=== PATIENT | female | born 1955 | race Caucasian/White ===

== ENCOUNTER → 2016-12-06 | Outpatient (CLI) | payer OTHER ==
[2016-12-06 11:59] LABS: Calcium 10.5 mg/dL (8.4-10.2)
[2016-12-06 12:16] LABS: Follicle Stimulating Hormone 49.2 mIU/mL; Prolactin 9.1 ng/mL (3.0-18.6)
--- NOTE | 2016-12-06 15:50 | US ---
EXAMINATION TYPE: US thyroid st tissue head/neck DATE OF EXAM: 12/06/2016 COMPARISON: US 05/13 CLINICAL HISTORY: 61-year-old female E21.0 PRIMARY HYPERPARATHYROIDISM. Patient states she is schedul e for thyroidectomy due to labs, renal stones, etc TECHNIQUE: Multiple sonographic images of the thyroid gland are obtained. FINDINGS: GLAND SIZE: Right Lobe: 4.9 x 1.8 x 2.0 cm Overall Parenchyma: heterogenous Left Lobe: 2.4 x 1.2 x 0.7 cm Overall Parenchyma: heterogeneous Isthmus Thickness: 0.9 cm NODULES RIGHT: # of dominating nodules measured on right: 1. A number of scattered tiny subcentimeter nodul es are present. 1. 0.7 X 0.5 x 0.7 cm hypoechoic solid nodule at the mid pole with well-defined margins. This nodu le is wider than tall and shows peripheral vascularity. Prior size: 6 x 5 x 6 mm, not significant changed. LEFT: # of nodules measured on left: 1 1. 1.1 X 0.8 x 0.9 cm hypoechoic solid nodule with well-defined margins. This nodule is wider than tall and shows peripheral vascularity. Prior size: 1.0 x 0.7 x 0.7 cm ISTHMUS: # of nodules measured in the isthmus: 0 Bilateral neck scanned, no evidence of lymphadenopathy. IMPRESSION: Tiny scattered nodules on both sides. Dominant nodule on the right measures 7 x 7 mm versus 6 x 6 mm, previously. Dominant nodule on the left measures 11 x 9 mm versus 10 x 7 mm, previously.
[2016-12-06 21:01] LABS: ACTH 7.52 pg/mL (0.00-45.99)
[2016-12-07 08:52] LABS: ALT 33 U/L (9-52); AST 60 U/L (14-36); Alkaline Phosphatase 148 U/L (38-126); Anion Gap 21 mmol/L; Blood Urea Nitrogen 18 mg/dL (7-17); Carbon Dioxide 18 mmol/L (22-30); Chloride 107 mmol/L (98-107); Glucose 112 mg/dL (74-99); Non-African American GFR(MDRD) >60 (>60 ml/min/1.73 sqM); Potassium 3.9 mmol/L (3.5-5.1); Sodium 146 mmol/L (137-145); Total Bilirubin 0.9 mg/dL (0.2-1.3); Total Protein 7.7 g/dL (6.3-8.2)
== END | disposition home or self-care (01) ==
LOC: LABWHC1 11:14
PROVIDERS: ATTEND Internal Medicine Endocrinology, Diabetes & Metabolism
DX: E04.2 Nontoxic multinodular goiter (principal); E83.52 Hypercalcemia
CPT/HCPCS: 36415; 76536; 80053; 82024; 82306; 82310; 82533; 83001; 83002; 83970; 84146; 84439; 84443; 84481

== ENCOUNTER → 2017-02-25 | Outpatient (CLI) | payer OTHER ==
[2017-02-25 08:42] LABS: ALT 45 U/L (9-52); Alkaline Phosphatase 151 U/L (38-126); Blood Urea Nitrogen 26 mg/dL (7-17); Carbon Dioxide 26 mmol/L (22-30); Glucose 228 mg/dL (74-99); Non-African American GFR(MDRD) >60 (>60 ml/min/1.73 sqM); Potassium 4.1 mmol/L (3.5-5.1); Sodium 141 mmol/L (137-145); Total Bilirubin 0.3 mg/dL (0.2-1.3); Total Protein 6.3 g/dL (6.3-8.2)
[2017-02-25 08:44] LABS: AST 26 U/L (14-36); Anion Gap 10 mmol/L; Calcium 9.1 mg/dL (8.4-10.2); Chloride 105 mmol/L (98-107)
== END | disposition home or self-care (01) ==
LOC: LABWHC1 07:55
PROVIDERS: ATTEND Internal Medicine Endocrinology, Diabetes & Metabolism
DX: E21.0 Primary hyperparathyroidism (principal)
CPT/HCPCS: 36415; 80053; 82306; 83970

== ENCOUNTER → 2017-04-14 | Outpatient (CLI) | payer OTHER ==
--- NOTE | 2017-04-14 12:12 | BD ---
EXAMINATION TYPE: MG DEXA axial skeleton. DATE OF EXAM: 04/14/2017 COMPARISON: 04.12.2014 CLINICAL HISTORY: PT IS A 61 YR OLD FEMALE.....ICD10 CODE: Z13.820 SCREENING FOR OSTEOPOROSIS Height: 61.3 Weight: 209 FRAX RISK QUESTIONS: Alcohol (3 or more units per day): NO Family History (Parent hip fracture): NO Glucocorticoids (More than 3mos): NO (Ex: prednisone, prednisolone, methylprednisolone, dexamethasone, and hydrocortisone). History of Fracture in Adulthood: YES Secondary Osteoporosis: YES 1. Type 1 Diabetes: YES 2. Hyperthyroidism: NO 3. Menopause before 45: NO 4. Malnutrition: NO 5. Chronic liver disease: NO Rheumatoid Arthritis: NO Current Tobacco Use: QUIT 2 YRS AGO RISK FACTORS HISTORY OF: FOOT FRACTURE 10 YRS AGO....AT 51 YRS OLD Family History of Osteoporosis: UNKNOWN Active: YES Diet low in dairy products/other sources of calcium: YES, A BIT LOW Postmenopausal woman: 50'S NATURAL Hyperparathyroidism: YES, FOUND OUT RECENTLY. Adrenal Insufficiency: NO MEDICATIONS: Thyroid Medications: YES, SYNTHROID, FOR 17 YRS Additional Medications: HX OF RADIATION, BP MEDS, REFLUX MEDS, STATINS FOR CHOLESTEROL, INSULIN PUMP, VIT D, BLOOD THINNERS Additional History: HX OF LT BREAST CANCER, DIABETIC, HYPERTENSION, OPEN HEART SURG, QUAD.BY-PASS EXAM MEASUREMENTS: Bone mineral densitometry was performed using the [employer] System. Bone mineral density as measured about the Lumbar spine is: ----- L1-L4(G/cm2): 1.017 T Score Values are as follows: ----- L1: -1.4 ----- L2: -2.3 ----- L3: -1.5 ----- L4: -0.6 ----- L1-L4: -1.4 Bone mineral density has: Increased 0.3% since study of: 04.12.2014 Bone mineral density about the R hip (g/cm2): 0.768 Bone mineral density about the L hip (g/cm2): 0.804 T Score values are as follows: -----R Neck: -2.3 -----L Neck: -2.0 -----R Total: -1.9 -----L Total: -1.6 Bone mineral density has: Decreased -2.2% since study of: 04.12.2014 FRAX%'S: THERE IS A 17.3% CHANCE OF A MAJOR OSTEOPOROTIC FX AND A 2.9% FOR HIP FX.....PROBABILITY OF FX IN 10 YRS TIME IMPRESSION: Osteopenia (T Score between -2.5 and -1) as noted by T score values with regards to both hips. There is slightly increased risk of fracture and the patient may be considered for treatment. Re-Screen 2-5 years. NOTE: T-SCORE=SD OF THE YOUNG ADULT MEAN.
== END | disposition home or self-care (01) ==
LOC: RADBDWWP 09:01
PROVIDERS: ATTEND Family Medicine
DX: M85.88 Other specified disorders of bone density and structure, other site (principal)
CPT/HCPCS: 77080

== ENCOUNTER → 2017-04-26 | Outpatient (CLI) | payer OTHER ==
--- NOTE | 2017-04-26 17:55 | PN ---
PROGRESS NOTE 62-year-old female coming in for yearly annual check up regarding obstructive sleep apnea. I noted the patient has gained a significant amount of weight in the order of 28 pounds. She attributes this to the diabetes and currently she is on an insulin pump. She has been very compliant with CPAP although she is not seeing the same benefit that she used to see in the past. She is on an auto CPAP therapy with a minimum pressure of 4 and maximum pressure of 16. I checked her compliance data and she is very compliant, averaging 6.8 hour of CPAP use every night. However her AHI while on treatment is at 7.6. Her leak factor is 8 L per minute, and her P90 pressure is at 15.8. I suspect the pressure range needs to be increased to provide this patient with more relief. The patient is using a fullface Simplus mask and she is having some leaks around the mask and she is looking also for an alternative mask. Her current Maspeth score is at 13. Her current vitals BP is 150/74, pulse 84, respirations 16, temperature 98.6 saturation 92% on room air. Weight is 212, height is 5 feet 2 inches, BMI 38.7. GENERAL APPEARANCE: Calm, comfortable, not in distress. HEENT: Head is atraumatic, normocephalic. Neck is supple. There is no JVD. No goiter or neck masses. Crowding of posterior pharynx. LUNGS: Clear to auscultation. HEART: Sounds regular rhythm. Normal S1, S2. No S3, S4. No murmurs. ABDOMEN: Soft, nontender. No organomegaly. EXTREMITIES: No edema. No cyanosis or clubbing. SKIN: Negative for ulcers, wounds or cellulitis. NEUROLOGIC: Alert and oriented x3. There is no focal neurological deficits. IMPRESSION: 1. Symptomatic obstructive sleep apnea severe at baseline with an AHI of 58.2. The patient has gained 28 pounds. Her current BMI is up to 38.7. The patient has been very compliant; however, her success and clinical response have been suboptimal knowing the patient has been experiencing some residual hypersomnia and today her Maspeth score is at 13. Her baseline compliance data, she does have some residual obstructive apnea events even while on treatment. PLAN: 1. Encourage weight loss. 2. Change the pressure range to minimum of 4 and maximum of 20. 3. Provide the patient Enedina view full face mask. 4. Implement good sleep hygiene measures. 5. See me back in a year's time or earlier if needed. MMODL / IJN: [id number] /
== END | disposition home or self-care (01) ==
LOC: SLEEP 16:36
PROVIDERS: ATTEND Internal Medicine Critical Care Medicine
DX: G47.33 Obstructive sleep apnea (adult) (pediatric) (principal)

== ENCOUNTER → 2017-06-03 | Outpatient (CLI) | payer OTHER ==
[2017-06-03 14:14] LABS: ALT 50 U/L (9-52); AST 33 U/L (14-36); Albumin 3.9 g/dL (3.5-5.0); Alkaline Phosphatase 131 U/L (38-126); Anion Gap 11 mmol/L; Blood Urea Nitrogen 16 mg/dL (7-17); Calcium 9.7 mg/dL (8.4-10.2); Carbon Dioxide 26 mmol/L (22-30); Chloride 105 mmol/L (98-107); Glucose 144 mg/dL (74-99); Potassium 4.1 mmol/L (3.5-5.1); Sodium 142 mmol/L (137-145); Total Bilirubin 0.4 mg/dL (0.2-1.3); Total Protein 6.3 g/dL (6.3-8.2)
[2017-06-03 19:05] LABS: Vitamin D 25 Hydroxy 37.4 ng/mL (30.0-100.0)
[2017-06-03 20:54] LABS: Parathyroid Hormone Intact 47.8 pg/mL (14.0-72.0)
== END ==
LOC: LABWHC1 13:02
PROVIDERS: ATTEND Internal Medicine Endocrinology, Diabetes & Metabolism
DX: E03.8 Other specified hypothyroidism (principal); E21.0 Primary hyperparathyroidism
CPT/HCPCS: 36415; 80053; 82306; 83970; 84443

== ENCOUNTER → 2017-08-08 | Outpatient (CLI) | payer OTHER ==
--- NOTE | 2017-08-08 15:44 | US ---
EXAMINATION TYPE: US thyroid st tissue head/neck DATE OF EXAM: 08/08/2017 COMPARISON: US CLINICAL HISTORY: E04.1 thyroid nodule; on thyroid medication GLAND SIZE: Right Lobe: 5.9 x 2.1 x 2.0 cm Overall Parenchyma: homogenous Left Lobe: 2.5 x 1.0 x 0.8 cm Overall Parenchyma: heterogeneous Isthmus Thickness: 0.6 cm NODULES RIGHT: # of nodules measured on right: 1 largest of multiple small nodules 1. 0.8 X 0.7 x 0.5 cm hypoechoic mixed nodule at the mid pole with well-defined margins. This nodu le is wider than tall and shows no intranodular vascularity. Prior size: 0.7 x 0.7 x 0.5 cm LEFT: # of nodules measured on left: 1 1. 0.9 X 0.7 x 0.6 cm hypoechoic mixed nodule at the mid pole with well-defined margins. This nodu le is wider than tall and shows no intranodular vascularity. Prior size: 1.0 x 0.9 x 0.8 cm ISTHMUS: # of nodules measured in the isthmus: 0 Bilateral neck scanned, no evidence of lymphadenopathy. Patient requested copies of results to Dr Nathanael Zabala and Dr Antunez (rake operator). IMPRESSION: Enlarged right thyroid lobe, with overall stability of the largest bilateral nodules that remain subc entimeter. Continued surveillance is recommended.
== END | disposition home or self-care (01) ==
LOC: RADUSWWP 11:56
PROVIDERS: ATTEND Otolaryngology
DX: E04.2 Nontoxic multinodular goiter (principal)
CPT/HCPCS: 76536

== ENCOUNTER → 2017-12-21 | Outpatient (CLI) | payer OTHER ==
[2017-12-21 09:52] LABS: ALT 57 U/L (9-52); AST 73 U/L (14-36); Albumin 3.8 g/dL (3.5-5.0); Alkaline Phosphatase 145 U/L (38-126); Anion Gap 7 mmol/L; Blood Urea Nitrogen 21 mg/dL (7-17); Calcium 9.1 mg/dL (8.4-10.2); Carbon Dioxide 28 mmol/L (22-30); Chloride 106 mmol/L (98-107); Glucose 180 mg/dL (74-99); Potassium 4.4 mmol/L (3.5-5.1); Sodium 141 mmol/L (137-145); Total Bilirubin 0.4 mg/dL (0.2-1.3); Total Protein 5.9 g/dL (6.3-8.2)
[2017-12-21 16:03] LABS: Vitamin D 25 Hydroxy 33.2 ng/mL (30.0-100.0)
[2017-12-21 16:30] LABS: Parathyroid Hormone Intact 83.6 pg/mL (14.0-72.0)
== END | disposition home or self-care (01) ==
LOC: LABWHC1 08:56
PROVIDERS: ATTEND Internal Medicine Endocrinology, Diabetes & Metabolism
DX: E83.52 Hypercalcemia (principal); E03.8 Other specified hypothyroidism
CPT/HCPCS: 36415; 80053; 82306; 83970; 84443

== ENCOUNTER → 2019-01-16 | Outpatient (CLI) | payer OTHER ==
--- NOTE | 2019-01-16 14:34 | US ---
EXAMINATION TYPE: US thyroid st tissue head/neck DATE OF EXAM: 01/16/2019 COMPARISON: Prior ultrasound August 08, 2017 CLINICAL HISTORY: E04.1 thyroid nodule. thyroid nodules GLAND SIZE: Right Lobe: 5.2 x 2.1 x 2.0 cm Overall Parenchyma: homogenous Left Lobe: 3.3 x 1.6 x 1.2 cm Overall Parenchyma: heterogeneous Isthmus Thickness: 0.4 cm NODULES RIGHT: # of nodules measured on right: 1 1. 0.9 X 0.6 x 0.7 cm hypoechoic mixed nodule at the mid pole with well-defined margins; . This no dule is wider than tall and shows no intranodular vascularity. Prior size: 0.8 x 0.7 x 0.5 cm LEFT: # of nodules measured on left: 1 1. 0.9 X 0.7 x 0.8 cm hypoechoic mixed nodule at the mid pole with well-defined margins; . This no dule is wider than tall and shows intranodular vascularity. Prior size: 0.9 x 0.7 x 0.6 cm ISTHMUS: # of nodules measured in the isthmus: 0 Bilateral neck scanned, no evidence of lymphadenopathy. Redemonstration of small size thyroid with heterogeneity and a few small stable nodules bilaterally. IMPRESSION: Overall stable findings, no new subcentimeter nodules identified.
== END | disposition home or self-care (01) ==
LOC: RADUSWWP 13:40
PROVIDERS: ATTEND Otolaryngology
DX: E04.1 Nontoxic single thyroid nodule (principal)
CPT/HCPCS: 76536

== ENCOUNTER → 2019-02-07 | Outpatient (CLI) | payer OTHER ==
--- NOTE | 2019-02-07 09:36 | MM ---
Reason for exam: additional evaluation requested from prior study. Last mammogram was performed 3 years and 10 months ago. History: Patient is postmenopausal, had previous chest radiation therapy at age 44, and has history of breast cancer at age 43. Family history of breast cancer in sister at age 60, breast cancer in maternal aunt, and breast cancer in paternal aunt at age 40. Benign US left guided mammotome of the left breast, May 12, 2007. Benign left mammotome panel of the left breast, December 20, 2005. Excisional biopsy of the left breast, April 08, 2000. Stereotactic core biopsy of the left breast, March 15, 2000. Stereotactic core biopsy of the left breast, March 15, 2000. Radiation therapy of the left breast, 1999. Benign ultrasound-guided core biopsy of the left breast, March 30, 1999. Cyst aspiration of the left breast. 3 lumpectomies of the left breast. 2 radiation therapies of the left breast. Physical Findings: Nurse did not find any significant physical abnormalities on exam. MG 3D Diag Mammo W/Cad SEAMUS Bilateral CC and MLO view(s) were taken. Prior study comparison: March 28, 2015, bilateral MG 3d diag mammo w/cad SEAMUS. July 23, 2014, right breast MG diagnostic mammo RT w CAD. The breast tissue is heterogeneously dense. This may lower the sensitivity of mammography. No suspicious abnormality. Post therapy change on the left. These results were verbally communicated with the patient and result sheet given to the patient on 02/07/19. ASSESSMENT: Benign, BI-RAD 2 RECOMMENDATION: Follow-up diagnostic mammogram of both breasts in 1 year.
== END | disposition home or self-care (01) ==
LOC: RADMAMWWP 06:40
PROVIDERS: ATTEND Internal Medicine
DX: R92.1 Mammographic calcification found on diagnostic imaging of breast (principal)
CPT/HCPCS: 77062; 77066

== ENCOUNTER → 2019-02-27 | Outpatient (CLI) | payer OTHER ==
--- NOTE | 2019-02-27 17:25 | PN ---
PROGRESS NOTE SLEEP CENTER PROGRESS NOTE: This is a 63-year-old female patient coming in for a 2-year followup regarding her RACHANA. The patient has severe RACHANA with an AHI of 58, and the patient is currently on APAP, minimum of 4, maximum of 20. Doing extremely well. Remains very compliant. Her P90 pressure is at 18. Her average pressure is 7.4 hours per night. She is utilizing her CPAP more than 4 hours more than 80% of the time. Her AHI is down to 5.6. She has gained around 10 pounds over the past 2 years, and despite her weight gain she remains successful. Nevertheless, the average pressure delivered by her CPAP machine is higher compared to last year. No major hypersomnia or sleepiness. Montrose Score is 6. No cough or sputum production. No heartburn at nighttime. No cardiac arrhythmia. No angina. No CVA. No other complaints otherwise. She is awake and alert. Rarely takes any naps during the day. REVIEW OF SYSTEMS: Fourteen-point review of systems was done. Positive findings were all mentioned above in the history of present illness. PHYSICAL EXAMINATION: VITAL SIGNS: BP is 151/69, pulse 66, respirations 16, temperature 98.5, saturation 94% on room air. Height is 5 feet 2 inches, weight 223. BMI is 40.7. GENERAL APPEARANCE: Obese, calm, comfortable. HEAD: Atraumatic, normocephalic. NECK: Supple. No JVD. No goiter or neck masses. Mallampati class IV. LUNGS: Diminished; otherwise clear. HEART: Heart sounds are regular rate and rhythm. Normal S1, S2. No S3, S4. No murmurs. ABDOMEN: Soft, nontender. No organomegaly. EXTREMITIES: No edema. No cyanosis or clubbing. SKIN: Negative for any wounds or ulceration. IMPRESSION: 1. Symptomatic severe obstructive sleep apnea with an apnea/hypopnea index of 8, currently on APAP. Treatment continues to be successful. 2. Obesity with interval weight gain. Current BMI is 40.7 with a 10-pound weight gain. Her body weight is up to 223. 3. Chronic hypersomnia, improved with APAP therapy. PLAN: 1. Continue APAP. 2. Offer this patient a [employer]ear [id number] small-sized full-face mask. 3. Encourage weight loss. 4. See me back in a year's time in followup, earlier if needed. Treatment is successful for now. MMODL / IJN: [id number] /
== END ==
LOC: SLEEP 14:52
PROVIDERS: ATTEND Internal Medicine Critical Care Medicine
DX: G47.33 Obstructive sleep apnea (adult) (pediatric) (principal); E66.9 Obesity, unspecified; Z99.89 Dependence on other enabling machines and devices; Z68.41 Body mass index [BMI] 40.0-44.9, adult

== ENCOUNTER 2020-05-15 23:36 | Inpatient (IN) | payer OTHER ==
--- NOTE | 2020-05-16 00:01 | ED ---
General Adult HPI - General Chief complaint: Chest Pain Stated complaint: Chest Pain,SOB Time Seen by Provider: 05/15/20 23:45 Source: patient, family Mode of arrival: wheelchair Limitations: no limitations - History of Present Illness Initial comments: 65 year-old female patient presents to the emergency department today for evaluation of chest pain. Patient reports that when she woke from sleep this morning she noticed heaviness in her arms and legs while walking. States that she brushed it off and went to work, but with any ambulation she developed shortness of breath, arm and leg heaviness, and some dizziness. States this evening with any physical activity she has had continuation of the above symptoms, but also developed substernal chest burning, left posterior arm pain, and pain in her shoulder blades. States all symptoms resolve at rest. Patient does have history of coronary artery disease with stent placement. Last NSTEMI was August 2015. She is maintained on Plavix and baby aspirin. She also has history of diabetes and hypertension. Denies increased swelling to her lower extremities. Patient denies any recent rash, fever, chills, cough, abdominal pain, nausea, vomiting, diarrhea, constipation, back pain, numbness, tingling, hematuria, dysuria, urinary urgency, urinary frequency, headache, visual changes, or any other complaints. - Related Data Home Medications Medication Instructions Recorded Confirmed Albuterol Sulfate [Ventolin HFA] 2 puff INHALATION RT-QID PRN 03/20/14 11/20/15 INSULIN ASPART (NovoLOG) [NovoLOG 0 units SQ-PUMP CONTINUOUS 03/20/14 11/20/15 (formulary)] Levothyroxine Sodium [Synthroid] 50 mcg PO QAM 03/20/14 11/20/15 Ascorbic Acid [Vitamin C] 1,000 mg PO W/LUNCH 08/04/15 11/20/15 Ipratropium/Albuterol Sulfate 1 puff INHALATION RT-TID 08/27/15 11/20/15 [Combivent Respimat Inhaler] ALPRAZolam [Xanax] 0.25 mg PO TID PRN 09/09/15 11/20/15 Acetaminophen [Tylenol] 1,000 mg PO QID PRN 11/20/15 11/20/15 Amitriptyline HCl [Elavil] 10 mg PO HS 11/20/15 11/20/15 Aspirin EC [Ecotrin] 325 mg PO QAM 11/20/15 11/20/15 Clopidogrel [Plavix] 75 mg PO W/BRKFST 11/20/15 11/20/15 Clotrimazole/Betamethasone Dip 1 applic TOPICAL BID PRN 11/20/15 11/20/15 [Lotrisone Cream] Co Q-10 400mg 400 mg PO HS 11/20/15 11/20/15 Colchicine 0.6 mg PO BID 11/20/15 11/20/15 Metoprolol Tartrate [Lopressor] 50 mg PO BID 11/20/15 11/20/15 PARoxetine [Paxil] 20 mg PO W/SUPPER 11/20/15 11/20/15 amLODIPine [Norvasc] 5 mg PO W/LUNCH 11/20/15 11/20/15 traMADol HCL [Ultram] 50 mg PO BID 11/20/15 11/20/15 Previous Rx's Medication Instructions Recorded Atorvastatin [Lipitor] 80 mg PO HS #30 tab 09/13/15 Pantoprazole [Protonix] 40 mg PO AC-BID #60 tablet. 09/13/15 Allergies Allergy/AdvReac Type Severity Reaction Status Date / Time HILARY Inhibitors Allergy Severe Swelling Verified 05/15/20 23:42 ezetimibe [From Zetia] Allergy Unknown Verified 05/15/20 23:42 mold Allergy Unknown Verified 05/15/20 23:42 Review of Systems ROS Statement: Those systems with pertinent positive or pertinent negative responses have been documented in the HPI. ROS Other: All systems not noted in ROS Statement are negative. Past Medical History Past Medical History: Asthma, Coronary Artery Disease (CAD), Cancer, Chest Pain / Angina, Diabetes Mellitus, Deep Vein Thrombosis (DVT), Hyperlipidemia, Hypertension, Myocardial Infarction ([place]), Pneumonia, Pulmonary Embolus (PE), Thyroid Disorder, Vascular Disorder Additional Past Medical History / Comment(s): Pleurisy couple weeks ago, 07-25-15 NSTEMI, goiter, L breast ca with lumpectomy and 31 radiation tx in 1999, frozen shoulders, heart murmer, IDDM-insulin pump, nephrolithiasis bilaterally with surgery-still has some stones in R kidney, hypothyrioidism, DVT L leg, unsure if PE was bilateral or unilateral, goiter, 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 Last Myocardial Infarction Date:: History of Any Multi-Drug Resistant Organisms: None Reported Past Surgical History: Bladder Surgery, Breast Surgery, Coronary Bypass/CABG, H eart Catheterization, Hysterectomy, Orthopedic Surgery Additional Past Surgical History / Comment(s): left breast lumpectomy, 2 surgeries for kidney stones(had stent placed.lithoprisy but had to go in and removed stone, cyst rt wrist, mult trigger finger surgeries, bilateral eyelid surgery, wilmar cataracts-lens implants, 07/18/15 QUAD CABG. 09/12 StentsX2-coronary arteries Past Anesthesia/Blood Transfusion Reactions: Previous Problems w/ Anesthesia, Family History of Problems w/ Anesthesia Additional Past Anesthesia/Blood Transfusion Reaction / Comment(s): " I wake up during surgery", sister "heart stopped one time on the table" Past Psychological History: No Psychological Hx Reported Smoking Status: Never smoker Past Alcohol Use History: None Reported Past Drug Use History: None Reported - Past Family History Mother Family Medical History: Cancer, Deep Vein Thrombosis (DVT) Additional Family Medical History / Comment(s): uterine CA, Kidney Stones (Sister) Father Family Medical History: Coronary Artery Disease (CAD), Hyperlipidemia Brother(s) Family Medical History: Cancer Sister(s) Family Medical History: Cancer General Exam Limitations: no limitations General appearance: alert, in no apparent distress, other (Physical well- developed, well-nourished adult female patient in no acute distress. Vital signs upon presentation are temperature 98.9F, pulse 92, respirations 26, blood pressure 118/48, pulse ox 99% on room air.) Eye exam: Present: normal appearance, PERRL, EOMI. Absent: scleral icterus, conjunctival injection, periorbital swelling ENT exam: Present: normal exam, normal oropharynx, mucous membranes moist Respiratory exam: Present: normal lung sounds bilaterally. Absent: respiratory distress, wheezes, rales, rhonchi, stridor Cardiovascular Exam: Present: regular rate, normal rhythm, normal heart sounds. Absent: systolic murmur, diastolic murmur, rubs, gallop, clicks GI/Abdominal exam: Present: soft, normal bowel sounds. Absent: distended, tenderness, guarding, rebound, rigid Neurological exam: Present: alert, oriented X3, CN II-XII intact Psychiatric exam: Present: normal affect, normal mood Skin exam: Present: warm, dry, intact, normal color. Absent: rash Course Vital Signs 05/15/20 05/16/20 05/16/20 23:37 00:10 00:18 Temperature 98.9 F Pulse Rate 92 81 Pulse Rate [ 92 Obstetric Anaesthetist ] Respiratory 26 H 17 Rate Blood Pressure 118/48 106/49 O2 Sat by Pulse 99 100 Oximetry EKG Findings - EKG Comments: EKG Findings:: EKG obtained at 2348 shows normal sinus rhythm with an incomplete right bundle branch block, left anterior fascicular block, ventricular 86, P return over 124, QRS duration 96, QTC 414, QTC 495. Medical Decision Making - Medical Decision Making 65-year-old female patient presents to the emergency department today for evaluation of shortness of breath, heaviness in her arms and legs, and chest discomfort with activity. Physical examination revealed a clear equal lung sounds. She is neurologically intact with no focal deficits. EKG did show sinus rhythm with incomplete right bundle branch block, left anterior fascicular block. No clinically significant ST elevation or depression. Labs reviewed and did reveal white blood cell count of 11.7. Hemoglobin is 7.9 which is decreased from her previous year couple of years ago. Remainder of labs show a BUN of 42, glucose at 305, magnesium at 1.5. Troponin is negative. Upon further questioning patient denies any history of anemia. Does report that she's had black stools over the last 2-3 days but thought it was attributed to something she ate. Did perform rectal exam for occult, there was presence of tarry stool this is been sent for evaluation. Patient will be admitted to the hospital for further evaluation of possible GI bleed. She is agreeable this plan. - Lab Data Result diagrams: 05/16/20 00:05 05/16/20 00:05 Lab Results 05/16/20 05/16/20 05/16/20 Range/Units 00:05 00:05 00:05 WBC 11.7 H (3.8-10.6) k/uL RBC 2.86 L (3.80-5.40) m/uL Hgb 7.9 L (11.4-16.0) gm/dL Hct 24.0 L (34.0-46.0) % MCV 83.7 (80.0-100.0) fL MCH 27.6 (25.0-35.0) pg MCHC 33.0 (31.0-37.0) g/dL RDW 15.7 H (11.5-15.5) % Plt Count 197 (150-450) k/uL MPV 7.9 Neutrophils % 71 % Lymphocytes % 22 % Monocytes % 4 % Eosinophils % 2 % Basophils % 1 % Neutrophils # 8.3 H (1.3-7.7) k/uL Lymphocytes # 2.6 (1.0-4.8) k/uL Monocytes # 0.4 (0-1.0) k/uL Eosinophils # 0.2 (0-0.7) k/uL Basophils # 0.1 (0-0.2) k/uL PT 10.1 (9.0-12.0) sec INR 1.0 (<1.2) APTT 18.7 L (22.0-30.0) sec Sodium 134 L (137-145) mmol/L Potassium 4.2 (3.5-5.1) mmol/L Chloride 107 (98-107) mmol/L Carbon Dioxide 19 L (22-30) mmol/L Anion Gap 8 mmol/L BUN 42 H (7-17) mg/dL Creatinine 0.65 (0.52-1.04) mg/dL Est GFR (CKD-EPI)AfAm >90 (>60 ml/min/1.73 sqM) Est GFR (CKD-EPI)NonAf >90 (>60 ml/min/1.73 sqM) Glucose 305 H (74-99) mg/dL Calcium 8.6 (8.4-10.2) mg/dL Magnesium 1.5 L (1.6-2.3) mg/dL Total Bilirubin 0.3 (0.2-1.3) mg/dL AST 30 (14-36) U/L ALT 18 (4-34) U/L Alkaline Phosphatase 79 (38-126) U/L Troponin I (0.000-0.034) ng/mL Total Protein 5.2 L (6.3-8.2) g/dL Albumin 3.1 L (3.5-5.0) g/dL Lipase 167 (23-300) U/L 05/16/20 Range/Units 00:05 WBC (3.8-10.6) k/uL RBC (3.80-5.40) m/uL Hgb (11.4-16.0) gm/dL Hct (34.0-46.0) % MCV (80.0-100.0) fL MCH (25.0-35.0) pg MCHC (31.0-37.0) g/dL RDW (11.5-15.5) % Plt Count (150-450) k/uL MPV Neutrophils % % Lymphocytes % % Monocytes % % Eosinophils % % Basophils % % Neutrophils # (1.3-7.7) k/uL Lymphocytes # (1.0-4.8) k/uL Monocytes # (0-1.0) k/uL Eosinophils # (0-0.7) k/uL Basophils # (0-0.2) k/uL PT (9.0-12.0) sec INR (<1.2) APTT (22.0-30.0) sec Sodium (137-145) mmol/L Potassium (3.5-5.1) mmol/L Chloride (98-107) mmol/L Carbon Dioxide (22-30) mmol/L Anion Gap mmol/L BUN (7-17) mg/dL Creatinine (0.52-1.04) mg/dL Est GFR (CKD-EPI)AfAm (>60 ml/min/1.73 sqM) Est GFR (CKD-EPI)NonAf (>60 ml/min/1.73 sqM) Glucose (74-99) mg/dL Calcium (8.4-10.2) mg/dL Magnesium (1.6-2.3) mg/dL Total Bilirubin (0.2-1.3) mg/dL AST (14-36) U/L ALT (4-34) U/L Alkaline Phosphatase (38-126) U/L Troponin I <0.012 (0.000-0.034) ng/mL Total Protein (6.3-8.2) g/dL Albumin (3.5-5.0) g/dL Lipase (23-300) U/L - Radiology Data Radiology results: report reviewed, image reviewed Two-view x-ray of the chest is obtained. Report was reviewed in its entirety. Impression by Dr. Puentes shows no acute findings in the chest. Disposition Clinical Impression: GI bleed, Anemia Disposition: [facility] Condition: Serious Referrals: Nathanael Zabala MD [Primary Care Provider] - 1-2 days Decision to Admit Reason: Admit from EC Decision Date: 05/16/20 Decision Time: 01:14
[2020-05-16 00:17] LABS: Basophils # (A) 0.1 k/uL (0-0.2); Basophils % (A) 1 %; Eosinophils # (A) 0.2 k/uL (0-0.7); Eosinophils % (A) 2 %; HGB 7.9 gm/dL (11.4-16.0); Lymphocytes # (A) 2.6 k/uL (1.0-4.8); Lymphocytes % (A) 22 %; MCH 27.6 pg (25.0-35.0); MCV 83.7 fL (80.0-100.0); Mean Platelet Volume 7.9; Monocytes # (A) 0.4 k/uL (0-1.0); Monocytes % (A) 4 %; Neutrophils # (A) 8.3 k/uL (1.3-7.7); Neutrophils % (A) 71 %; Platelet Count 197 k/uL (150-450); RBC 2.86 m/uL (3.80-5.40); RDW 15.7 % (11.5-15.5); WBC 11.7 k/uL (3.8-10.6)
[2020-05-16 00:26] LABS: ALT 18 U/L (4-34); AST 30 U/L (14-36); African American GFR (CKD) >90 (>60 ml/min/1.73 sqM); Albumin 3.1 g/dL (3.5-5.0); Alkaline Phosphatase 79 U/L (38-126); Anion Gap 8 mmol/L; Blood Urea Nitrogen 42 mg/dL (7-17); Calcium 8.6 mg/dL (8.4-10.2); Carbon Dioxide 19 mmol/L (22-30); Chloride 107 mmol/L (98-107); Glucose 305 mg/dL (74-99); Lipase 167 U/L (23-300); Magnesium 1.5 mg/dL (1.6-2.3); Non-African American GFR(CKD) >90 (>60 ml/min/1.73 sqM); Potassium 4.2 mmol/L (3.5-5.1); Sodium 134 mmol/L (137-145); Total Bilirubin 0.3 mg/dL (0.2-1.3); Total Protein 5.2 g/dL (6.3-8.2)
--- NOTE | 2020-05-16 00:31 | XR ---
EXAM: XR Chest, 2 Views CLINICAL HISTORY: ITS.REASON XR Reason: Chest Pain TECHNIQUE: Frontal and lateral views of the chest. COMPARISON: Chest x-ray dated 11/20/2015 FINDINGS: Lungs: Unremarkable. Pleural space: Unremarkable. Heart: Unremarkable. Mediastinum: Unremarkable. Bones/joints: Evidence of prior median sternotomy. IMPRESSION: No acute findings in the chest.
[2020-05-16 00:35] LABS: Prothrombin Time 10.1 sec (9.0-12.0)
[2020-05-16 00:45] LABS: Partial Thromboplastin Time 18.7 sec (22.0-30.0)
[2020-05-16] MEDS ORDERED: PANTOPRAZOLE 40 MG/10 ML VIAL IVP STA (01:09)
[2020-05-16] MEDS ORDERED: NALOXONE 0.4 MG/ML 1 ML VIAL IV PRN (01:14)
[2020-05-16] MEDS ORDERED: ASPIRIN 81 MG PO STA ×2 (01:45→14:47)
[2020-05-16] MEDS: MAGNESIUM SULFATE-D5W PMX 1 GM in DEXTROSE/WATER 1 100ML.BAG IVPB SCH ×2 (01:50→04:06)
[2020-05-16] MEDS ORDERED: INSULIN ASPART (NovoLOG) 100 UNIT/ML VIAL SQ ONE (02:08)
--- NOTE | 2020-05-16 02:09 | P.HPIM ---
History of Present Illness H&P Date: 05/16/20 Patient is a 65-year-old female with a PMH of coronary artery disease status post CABG and multiple stents, type II DM disease (on insulin pump), hypertension, hyperlipidemia, and hypogonadism who presented to the emergency room with complaints of epigastric discomfort, shortness of breath, and black tarry stools. The patient reports that 2 days ago, she developed loose black stools, was roughly one episode daily. She attributed the stools to having eaten dark chocolate the day prior. She continued to have black stools yesterday and earlier today and notes that after waking up in the morning, she noted that she felt significantly more tired than usual. She also noted decreased exercise tolerance with no significant dyspnea on exertion along with an epigastric 5 out of 10 burning-like discomfort, worsened with exertion, relieved with rest, with associated shortness of breath, nausea, and dizziness. The patient denied loss of consciousness. Denied prior history of GI bleeding. Reports that her symptoms are very similar to when she previously had an AL and underwent a CABG. She denied fever, chills, cough, palpitations, abdominal pain, or diarrhea. At the time of interview, noted that her chest discomfort was a 2 out of 10. She underwent an extensive evaluation in the emergency room with an EKG showing normal sinus rhythm with an incomplete right bundle branch block and a left anterior fascicular block at 86 bpm, chest x-ray unremarkable, with laboratory evaluation remarkable for hemoglobin of 7.9 (previously 12.2 in 10/2015), BUN 42, magnesium 1.5, and a fecal occult blood positive. Review of Systems Pertinent positives and negatives as discussed in HPI, a complete review of systems was performed and all other systems are negative. Past Medical History Past Medical History: Asthma, Coronary Artery Disease (CAD), Cancer, Chest Pain / Angina, Diabetes Mellitus, Deep Vein Thrombosis (DVT), Hyperlipidemia, Hypertension, Myocardial Infarction ([place]), Pneumonia, Pulmonary Embolus ([place]), Thyroid Disorder, Vascular Disorder Additional Past Medical History / Comment(s): Pleurisy couple weeks ago, 07-25-15 NSTEMI, goiter, L breast ca with lumpectomy and 33 radiation tx in 1999, frozen shoulders, heart murmer, IDDM-insulin pump, nephrolithiasis bilaterally with surgery-still has some stones in R kidney, hypothyrioidism, DVT L leg, unsure if PE was bilateral or unilateral, goiter, 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 Last Myocardial Infarction Date:: History of Any Multi-Drug Resistant Organisms: None Reported Past Surgical History: Bladder Surgery, Breast Surgery, Coronary Bypass/CABG, Heart Catheterization, Hysterectomy, Orthopedic Surgery Additional Past Surgical History / Comment(s): left breast lumpectomy, 2 surgeries for kidney stones(had stent placed.lithoprisy but had to go in and removed stone, cyst rt wrist, mult trigger finger surgeries, bilateral eyelid surgery, wilmar cataracts-lens implants, 07/18/15 QUAD CABG. 09/12 StentsX2-coronary arteries Past Anesthesia/Blood Transfusion Reactions: Previous Problems w/ Anesthesia, Family History of Problems w/ Anesthesia Additional Past Anesthesia/Blood Transfusion Reaction / Comment(s): " I wake up during surgery", sister "heart stopped one time on the table" Past Psychological History: No Psychological Hx Reported Smoking Status: Never smoker Past Alcohol Use History: None Reported Past Drug Use History: None Reported - Past Family History Mother Family Medical History: Cancer, Deep Vein Thrombosis (DVT) Additional Family Medical History / Comment(s): uterine CA, Kidney Stones (Sister) Father Family Medical History: Coronary Artery Disease (CAD), Hyperlipidemia Brother(s) Family Medical History: Cancer Sister(s) Family Medical History: Cancer Medications and Allergies Home Medications Medication Instructions Recorded Confirmed Type Albuterol Sulfate [Ventolin HFA] 2 puff INHALATION RT-QID PRN 03/20/14 11/20/15 History INSULIN ASPART (NovoLOG) [NovoLOG 0 units SQ-PUMP CONTINUOUS 03/20/14 11/20/15 History (formulary)] Levothyroxine Sodium [Synthroid] 50 mcg PO QAM 03/20/14 11/20/15 History Ascorbic Acid [Vitamin C] 1,000 mg PO W/LUNCH 08/04/15 11/20/15 History Ipratropium/Albuterol Sulfate 1 puff INHALATION RT-TID 08/27/15 11/20/15 History [Combivent Respimat Inhaler] ALPRAZolam [Xanax] 0.25 mg PO TID PRN 09/09/15 11/20/15 History Atorvastatin [Lipitor] 80 mg PO HS #30 tab 09/13/15 11/20/15 Rx Pantoprazole [Protonix] 40 mg PO AC-BID #60 tablet. 09/13/15 11/20/15 Rx Acetaminophen [Tylenol] 1,000 mg PO QID PRN 11/20/15 11/20/15 History Amitriptyline HCl [Elavil] 10 mg PO HS 11/20/15 11/20/15 History Aspirin EC [Ecotrin] 325 mg PO QAM 11/20/15 11/20/15 History Clopidogrel [Plavix] 75 mg PO W/BRKFST 11/20/15 11/20/15 History Clotrimazole/Betamethasone Dip 1 applic TOPICAL BID PRN 11/20/15 11/20/15 History [Lotrisone Cream] Co Q-10 400mg 400 mg PO HS 11/20/15 11/20/15 History Colchicine 0.6 mg PO BID 11/20/15 11/20/15 History Metoprolol Tartrate [Lopressor] 50 mg PO BID 11/20/15 11/20/15 History PARoxetine [Paxil] 20 mg PO W/SUPPER 11/20/15 11/20/15 History amLODIPine [Norvasc] 5 mg PO W/LUNCH 11/20/15 11/20/15 History traMADol HCL [Ultram] 50 mg PO BID 11/20/15 11/20/15 History Allergies Allergy/AdvReac Type Severity Reaction Status Date / Time HILARY Inhibitors Allergy Severe Swelling Verified 05/15/20 23:42 ezetimibe [From Zetia] Allergy Unknown Verified 05/15/20 23:42 mold Allergy Unknown Verified 05/15/20 23:42 Physical Exam Vitals: Vital Signs Temp Pulse Pulse Resp BP Pulse Ox 05/16/20 01:00 70 120/55 98 05/16/20 00:18 92 05/16/20 00:10 81 17 106/49 100 05/15/20 23:37 98.9 F 92 26 H 118/48 99 Intake and Output 05/15/20 05/15/20 05/16/20 14:59 22:59 06:59 Other: Weight 90.718 kg General: non toxic, no distress, appears at stated age, morbidly obese Derm: no unusual rashes/lesions no unusual ecchymoses, warm, dry Head: atraumatic, normocephalic, symmetric Eyes: EOMI, no lid lag, anicteric sclera, pupils equal round reactive to light ENT: Nose and ears atraumatic, no thrush, no pharyngeal erythema Neck: No thyromegaly, no cervical lymphadenopathy, trachea midline, supple Mouth: no lip lesion, mucus membranes moist Cardiovascular: S1S2 reg, no murmur, positive posterior tibial pulse bilateral, trace bilateral lower extremity edema, capillary refill less than 2 seconds Lungs: CTA bilateral, no rhonchi, no rales , no accessory muscle use Abdominal: soft, nontender to palpation, no guarding, no appreciable organomegaly, normal bowel sounds Ext: no gross muscle atrophy, muscle strength 5 out of 5 in all 4 extremities grossly, no contractures, Neuro: CN II-XI grossly intact, light touch intact all 4 extremities, finger to nose within normal limits, Psych: Alert, oriented, appropriate affect Results CBC & Chem 7: 05/16/20 00:05 05/16/20 00:05 Labs: Abnormal Lab Results - Last 24 Hours (Table) 05/16/20 05/16/20 05/16/20 Range/Units 00:05 00:05 00:05 WBC 11.7 H (3.8-10.6) k/uL RBC 2.86 L (3.80-5.40) m/uL Hgb 7.9 L (11.4-16.0) gm/dL Hct 24.0 L (34.0-46.0) % RDW 15.7 H (11.5-15.5) % Neutrophils # 8.3 H (1.3-7.7) k/uL APTT 18.7 L (22.0-30.0) sec Sodium 134 L (137-145) mmol/L Carbon Dioxide 19 L (22-30) mmol/L BUN 42 H (7-17) mg/dL Glucose 305 H (74-99) mg/dL Magnesium 1.5 L (1.6-2.3) mg/dL Total Protein 5.2 L (6.3-8.2) g/dL Albumin 3.1 L (3.5-5.0) g/dL Stool Occult Blood (Negative) 05/16/20 Range/Units 01:14 WBC (3.8-10.6) k/uL RBC (3.80-5.40) m/uL Hgb (11.4-16.0) gm/dL Hct (34.0-46.0) % RDW (11.5-15.5) % Neutrophils # (1.3-7.7) k/uL APTT (22.0-30.0) sec Sodium (137-145) mmol/L Carbon Dioxide (22-30) mmol/L BUN (7-17) mg/dL Glucose (74-99) mg/dL Magnesium (1.6-2.3) mg/dL Total Protein (6.3-8.2) g/dL Albumin (3.5-5.0) g/dL Stool Occult Blood Positive H (Negative) Assessment and Plan Plan: Unstable angina -S/p ASA 325 mg PO in ED -Continue with cardiac monitoring -Cardiology consult -Hold off on full anticoagulation in setting of active GI bleeding -Trend troponin Acute blood loss anemia due to GI bleeding -1 unit PRBCs ordered -GI consult -Monitor CBC -Hemoglobin goal of greater than or equal to 9 mg/dL in setting of active cardiac disease -Protonix IV Elevated BUN, likely secondary to acute GI bleeding -Monitor for now Leukocytosis -No signs of active infection at this time -Likely due to acute stressor Hypomagnesemia -Replace and monitor Type II DM -Continue with insulin pump for basal dosing (0.875 units per hour) -Lispro sliding scale with blood glucose monitoring -Check A1c Chronic conditions: Hypertension, hyperlipidemia, hypothyroidism -Continue with home meds DVT prophylaxis -IPCDs Discussed with: Patient Anticipated discharge date: 2-[address]: Home A total of 40 minutes was spent on the care of this complex patient more than 50% of the time was spent in counseling and care coordination.
[2020-05-16] MEDS ORDERED: INSULIN ASPART (NovoLOG) 100 UNIT/ML VIAL SQ PRN (02:12)
[2020-05-16] MEDS ORDERED: INSULIN PUMP BASAL RATES 1 EACH MISC MISCELLANE PRN (02:12)
[2020-05-16] MEDS ORDERED: INSPUCOR MISCELLANE PRN (02:12)
[2020-05-16 02:20] LABS: Glucose,Whole Blood 354 mg/dL (75-99)
[2020-05-16] MEDS: INSULIN PUMP MEAL BOLUS 1 UNIT MISC MISCELLANE SCH ×4 (06:56→21:56)
[2020-05-16] MEDS: INSULIN ASPART (NovoLOG) 100 UNIT/ML VIAL SQ SCH ×2 (06:57→14:39)
[2020-05-16 06:59] LABS: Glucose,Whole Blood 279 mg/dL (75-99)
[2020-05-16] MEDS: NITROGLYCERIN SL TABS 0.4 MG TAB SUBLINGUAL PRN ×4 (07:15→14:38)
[2020-05-16 08:22] LABS: African American GFR (CKD) >90 (>60 ml/min/1.73 sqM); Anion Gap 5 mmol/L; Blood Urea Nitrogen 36 mg/dL (7-17); Calcium 8.5 mg/dL (8.4-10.2); Carbon Dioxide 22 mmol/L (22-30); Chloride 108 mmol/L (98-107); Glucose 246 mg/dL (74-99); Magnesium 2.1 mg/dL (1.6-2.3); Non-African American GFR(CKD) >90 (>60 ml/min/1.73 sqM); Potassium 4.4 mmol/L (3.5-5.1); Sodium 135 mmol/L (137-145)
[2020-05-16 08:49] LABS: Anisocytosis Slight; HCT 23.6 % (34.0-46.0); HGB 7.6 gm/dL (11.4-16.0); Hypochromasia Slight; MCH 27.6 pg (25.0-35.0); MCHC 32.1 g/dL (31.0-37.0); MCV 85.9 fL (80.0-100.0); Mean Platelet Volume 8.1; Platelet Count 216 k/uL (150-450); RBC 2.75 m/uL (3.80-5.40); RDW 16.3 % (11.5-15.5); WBC 13.3 k/uL (3.8-10.6)
[2020-05-16] MEDS ORDERED: PANTOPRAZOLE 40 MG/10 ML VIAL IVP SCH (09:00)
[2020-05-16] MEDS: PANTOPRAZOLE 40 MG/10 ML VIAL IVP SCH ×2 (09:24→22:03)
[2020-05-16 11:53] LABS: Glucose,Whole Blood 277 mg/dL (75-99)
--- NOTE | 2020-05-16 12:00 | ECHOF ---
Referral Reason:LV function MEASUREMENTS -------- HEIGHT: 157.5 cm WEIGHT: 101.6 kg BP: RVIDd: 2.6 cm (< 3.3) IVSd: 1.2 cm (0.6 - 1.1) LVIDd: 4.6 cm (3.9 - 5.3) LVPWd: 1.5 cm (0.6 - 1.1) IVSs: 1.7 cm LVIDs: 3.3 cm LVPWs: 1.7 cm LAESV Index (A-L): 29.22 ml/m Ao Diam: 2.4 cm (2.0 - 3.7) AV Cusp: 1.8 cm (1.5 - 2.6) LA Diam: 3.5 cm (2.7 - 3.8) MV EXCURSION: 12.842 mm (> 18.000) MV EF SLOPE: 77 mm/s (70 - 150) EPSS: 1.2 cm MV E Pavel: 0.93 m/s MV DecT: 229 ms MV A Pavel: 0.96 m/s MV E/A Ratio: 0.97 RAP: 5.00 mmHg RVSP: 11.51 mmHg FINDINGS -------- This was a technically adequate study. The left ventricular size is normal. There is moderate concentric left ventricular hypertrophy. O verall left ventricular systolic function is normal with, an EF between 55 - 60 %. Normal LAP Grade 1 Diastolic Dysfunction. The right ventricle is normal in size. The left atrial size is normal. LA is midly dilated 29-33ml/m2. The right atrial size is normal. Aortic valve is trileaflet and is mildly thickened. The mitral valve is normal. The mitral valve leaflets are mildly thickened. There is trace mitral regurgitation. The tricuspid valve appears structurally normal. Trace tricuspid regurgitation present. Right joaquin tricular systolic pressure is normal at < 35 mmHg. There is no pulmonic regurgitation present. The aortic root size is normal. Normal inferior vena cava with normal inspiratory collapse consistent with estimated right atrial pre ssure of 5 mmHg. There is no pericardial effusion. CONCLUSIONS -------- 1. The left ventricular size is normal. 2. There is moderate concentric left ventricular hypertrophy. 3. Overall left ventricular systolic function is normal with, an EF between 55 - 60 %. 4. Normal LAP Grade 1 Diastolic Dysfunction. 5. LA is midly dilated 29-33ml/m2. 6. Aortic valve is trileaflet and is mildly thickened. 7. The mitral valve leaflets are mildly thickened. 8. There is trace mitral regurgitation. 9. Trace tricuspid regurgitation present. 10. There is no pericardial effusion. RE DYE HAND: Lata Celaya RDCS
[2020-05-16] MEDS ORDERED: ALBUTEROL NEBULIZED 2.5 MG/3 ML INHALATION PRN ×2 (12:13→12:18)
--- NOTE | 2020-05-16 12:16 | P.PN ---
Progress Note - Text Progress Note Date: 05/16/20 Hospitalist Interval Note Patient seen and examined at bedside. Reports that after admission she had 2 episodes of bloody emesis. She continues to have substernal chest discomfort, shortness of breath, lightheadedness, dizziness, heavy arms, and intermittent nausea. She states these are definitive episodes that come and goes. She denies any history of prior gastrointestinal bleeding. Vital signs reviewed General: non toxic, no distress, appears at stated age Derm: warm, dry Head: atraumatic, normocephalic, symmetric Eyes: EOMI, no lid lag, anicteric sclera Mouth: no lip lesion, mucus membranes moist Cardiovascular: S1S2 reg, no murmur, positive posterior tibial pulse bilateral, Lungs: CTA bilateral, no rhonchi, no rales , no accessory muscle use Abdominal: soft, nontender to palpation, no guarding, no appreciable organomegaly Ext: no gross muscle atrophy, no edema, no contractures Neuro: CN II-XI grossly intact, no focal neuro deficits Psych: Alert, oriented, appropriate affect Assessment/Plan: Unstable angina, acute ischemic event ruled out GI bleed Acute blood loss anemia Leukocytosis, likely reactive DM 2 on insulin pump HTN HLD Hypothyroidism increased PPI to BID, serial HgB, continue insulin pump no bolus, Await GI and cardio eval, await echo, Plavix on hold, ASA on hold Zofran for nausea and vomiting. This is an update note for patient , for full note on 05/16/2020 see H and P by Dr. Kang. There is no charge associated with this note.
--- NOTE | 2020-05-16 13:00 | P.CRDCN ---
History of Present Illness Consult date: 05/16/20 History of present illness: CHIEF COMPLAINT: Chest pain HISTORY OF PRESENT ILLNESS: This is a 65-year old female with a past medical history significant for hypertension, hyperlipidemia, diabetes mellitus, coronary artery disease with previous CABG and stent placement. Patient follows in the office with Dr. Parish. We have been asked to see the patient in consultation for chest pain. Patient examined this morning at the bedside. Patient states she has been having black stools since Tuesday. She reports that she was taking her Protonix but was told to wean herself off that by her primary care physician. She reports she last took her Protonix about a week ago. She is on aspirin and Plavix. Patient states she underwent a CABG 4 in 2015. She reports two of her grafts became blocked and a couple months after her CABG she underwent a stent placement. She reports feeling very short of breath with minimal exertion. She also reports feeling chest pain when she is short of breath and exerting herself. DIAGNOSTICS: EKG reveals sinus rhythm with no signs of acute ischemia Chest xray negative for acute process Laboratory data: WBC 13.3. Hemoglobin 7.6. Platelet count 216. Sodium 135. P otassium 4.4. BUN 36. Creatinine 0.65. Troponin 0.012. 0.012. 0.039. Current home cardiac medications include metoprolol 50 mg twice a day, Plavix 75 mg daily, atorvastatin 80 mg daily, and aspirin 325 mg daily REVIEW OF SYSTEMS: At the time of my exam: CONSTITUTIONAL: Denies fever or chills. HEENT: Denies blurred vision, vision changes, or eye pain. Denies hemoptysis CARDIOVASCULAR: Denies chest pain, orthopnea, PND or palpitations RESPIRATORY: No shortness of breath. GASTROINTESTINAL: Denies abdominal pain. Denies nausea or vomiting. HEMATOLOGIC: Denies bleeding disorders. GENITOURINARY: Denies any blood in urine. SKIN: Denies pruitis. Denies rash. PHYSICAL EXAM: VITAL SIGNS: Reviewed. GENERAL: Well-developed in no acute distress. HEENT: Head is normocephalic. Pupils are equal, round. Sclerae anicteric. Mucous membranes of the mouth are moist. Neck supple. No JVD or thyromegaly LUNGS: Respirations even and unlabored. Lungs essentially clear to auscultation bilaterally. HEART: Regular rate and rhythm. S1 and S2 heard. ABDOMEN: Soft. Nondistended. Nontender. EXTREMITIES: Normal range of motion. No clubbing or cyanosis. Peripheral pulses intact. No lower extremity edema NEUROLOGIC: Awake and alert. Oriented x 3. ASSESSMENT: Acute GI bleed Acute blood loss anemia Abnormal troponin, secondary to oxygen supply and demand mismatch, type II [place], due to acute blood loss anemia Coronary artery disease with previous CABG 4 and subsequent PCI Hypertension Hyperlipidemia Diabetes mellitus, type II PLAN: Obtain 2-D echo to assess cardiac structure and function Continue to hold aspirin and plavix. If cleared by GI service at the time of discharge, she may resume ONE of these medications. She does not need to continue both aspirin and plavix at discharge. No further workup from a cardiac standpoint We will sign off. Please reconsult if needed. Nurse practitioner note has been reviewed by physician. Signing provider agrees with the documented findings, assessment, and plan of care. Past Medical History Past Medical History: Asthma, Coronary Artery Disease (CAD), Cancer, Chest Pain / Angina, Diabetes Mellitus, Deep Vein Thrombosis (DVT), Hyperlipidemia, Hypertension, Myocardial Infarction ([place]), Pneumonia, Pulmonary Embolus (PE), Thyroid Disorder, Vascular Disorder Additional Past Medical History / Comment(s): Pleurisy couple weeks ago, 07-25-15 NSTEMI, goiter, L breast ca with lumpectomy and 33 radiation tx in 1999, frozen shoulders, heart murmer, IDDM-insulin pump, nephrolithiasis bilaterally with surgery-still has some stones in R kidney, hypothyrioidism, DVT L leg, unsure if PE was bilateral or unilateral, goiter, 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 Last Myocardial Infarction Date:: History of Any Multi-Drug Resistant Organisms: None Reported Past Surgical History: Bladder Surgery, Breast Surgery, Coronary Bypass/CABG, Heart Catheterization, Hysterectomy, Orthopedic Surgery Additional Past Surgical History / Comment(s): left breast lumpectomy, 2 surgeries for kidney stones(had stent placed.lithoprisy but had to go in and removed stone, cyst rt wrist, mult trigger finger surgeries, bilateral eyelid surgery, wilmar cataracts-lens implants, 07/18/15 QUAD CABG. 09/12 StentsX2-coronary arteries Past Anesthesia/Blood Transfusion Reactions: Previous Problems w/ Anesthesia, Family History of Problems w/ Anesthesia Additional Past Anesthesia/Blood Transfusion Reaction / Comment(s): " I wake up during surgery", sister "heart stopped one time on the table" Past Psychological History: No Psychological Hx Reported Smoking Status: Never smoker Past Alcohol Use History: None Reported Past Drug Use History: None Reported - Past Family History Mother Family Medical History: Cancer, Deep Vein Thrombosis (DVT) Additional Family Medical History / Comment(s): uterine CA, Kidney Stones (Sister) Father Family Medical History: Coronary Artery Disease (CAD), Hyperlipidemia Brother(s) Family Medical History: Cancer Sister(s) Family Medical History: Cancer Medications and Allergies Home Medications Medication Instructions Recorded Confirmed Type Albuterol Sulfate [Ventolin HFA] 2 puff INHALATION RT-QID PRN 03/20/14 05/16/20 History INSULIN ASPART (NovoLOG) [NovoLOG 0.01 units SQ-PUMP CONTINUOUS 03/20/14 05/16/20 History (formulary)] Levothyroxine Sodium [Synthroid] 50 mcg PO QAM 03/20/14 05/16/20 History Atorvastatin [Lipitor] 80 mg PO HS #30 tab 09/13/15 05/16/20 Rx Aspirin EC [Ecotrin] 325 mg PO QAM 11/20/15 05/16/20 History Clopidogrel [Plavix] 75 mg PO W/BRKFST 11/20/15 05/16/20 History Metoprolol Tartrate [Lopressor] 50 mg PO BID 11/20/15 05/16/20 History PARoxetine [Paxil] 20 mg PO W/SUPPER 11/20/15 05/16/20 History Cholecalciferol [Vitamin D3 (25 1,000 unit PO DAILY 05/16/20 05/16/20 History Mcg = 1000 Iu)] Ubidecarenone [Co Q-10] 300 mg PO DAILY 05/16/20 05/16/20 History Allergies Allergy/AdvReac Type Severity Reaction Status Date / Time HILARY Inhibitors Allergy Severe Swelling Verified 05/16/20 08:11 ezetimibe [From Zetia] Allergy Unknown Verified 05/16/20 08:11 mold Allergy Unknown Verified 05/16/20 08:11 Physical Exam Vitals: Vital Signs Temp Pulse Pulse Pulse Resp BP BP 05/16/20 10:49 98.4 F 84 16 105/55 05/16/20 10:19 98.6 F 86 16 104/51 05/16/20 10:09 98.7 F 82 16 89/49 05/16/20 09:24 90 16 05/16/20 07:45 98.4 F 90 18 98/52 05/16/20 03:39 98.9 F 97 18 111/67 05/16/20 02:35 79 18 109/62 05/16/20 02:24 72 16 116/68 05/16/20 01:00 70 120/55 05/16/20 00:18 92 05/16/20 00:10 81 17 106/49 05/15/20 23:37 98.9 F 92 26 H 118/48 Pulse Ox 05/16/20 10:49 98 05/16/20 10:19 98 05/16/20 10:09 98 05/16/20 09:24 05/16/20 07:45 98 05/16/20 03:39 98 05/16/20 02:35 99 05/16/20 02:24 98 05/16/20 01:00 98 05/16/20 00:18 05/16/20 00:10 100 05/15/20 23:37 99 Intake and Output 05/15/20 05/16/20 05/16/20 22:59 06:59 14:59 Intake Total 10 Output Total 400 Balance -400 10 Intake: IV 10 Invasive Line 1 10 Blood Product 0 Rc As-1 Unit 0 [id number] Output: Urine 400 Other: # Voids 1 Weight 102 kg Results 05/16/20 07:15 05/16/20 07:15 Cardiac Enzymes 05/16/20 05/16/20 05/16/20 Range/Units 00:05 00:05 02:46 AST 30 (14-36) U/L Troponin I <0.012 <0.012 (0.000-0.034) ng/mL 05/16/20 Range/Units 07:15 AST (14-36) U/L Troponin I 0.039 H* (0.000-0.034) ng/mL Coagulation 05/16/20 Range/Units 00:05 PT 10.1 (9.0-12.0) sec APTT 18.7 L (22.0-30.0) sec CBC 05/16/20 05/16/20 Range/Units 00:05 07:15 WBC 11.7 H 13.3 H (3.8-10.6) k/uL RBC 2.86 L 2.75 L (3.80-5.40) m/uL Hgb 7.9 L 7.6 L (11.4-16.0) gm/dL Hct 24.0 L 23.6 L (34.0-46.0) % Plt Count 197 216 (150-450) k/uL Comprehensive Metabolic Panel 05/16/20 05/16/20 Range/Units 00:05 07:15 Sodium 134 L 135 L (137-145) mmol/L Potassium 4.2 4.4 (3.5-5.1) mmol/L Chloride 107 108 H (98-107) mmol/L Carbon Dioxide 19 L 22 (22-30) mmol/L BUN 42 H 36 H (7-17) mg/dL Creatinine 0.65 0.65 (0.52-1.04) mg/dL Glucose 305 H 246 H (74-99) mg/dL Calcium 8.6 8.5 (8.4-10.2) mg/dL AST 30 (14-36) U/L ALT 18 (4-34) U/L Alkaline Phosphatase 79 (38-126) U/L Total Protein 5.2 L (6.3-8.2) g/dL Albumin 3.1 L (3.5-5.0) g/dL Current Medications Generic Name Dose Route Start Last Admin Trade Name Freq PRN Reason Stop Dose Admin Albuterol Sulfate 2.5 mg 05/16/20 12:18 Albuterol Nebulized 2.5 Mg/3 Ml INHALATION RT-QID PRN Shortness Of Breath Atorvastatin Calcium 80 mg 05/16/20 21:00 Atorvastatin 80 Mg Tab PO HS ANNA Insulin Aspart 0 unit 05/16/20 07:30 05/16/20 06:57 Insulin Aspart (Novolog) 100 Unit/Ml Vial SQ Not Given ACHS ANNA Protocol Insulin Aspart 0 unit 05/16/20 02:12 Insulin Aspart (Novolog) 100 Unit/Ml Vial SQ DAILY PRN Insulin Pump Replacement Levothyroxine Sodium 50 mcg 05/16/20 12:15 Levothyroxine 50 Mcg Tab PO DAILY@0630 PENDING SALE TO [facility] Metoprolol Tartrate 50 mg 05/16/20 21:00 Metoprolol Tartrate 50 Mg Tab PO BID ANNA Miscellaneous Information 1 each 05/16/20 02:12 Insulin Pump Basal Rates 1 Each Misc MISCELLANE Q6HR PRN Blood Sugar - High Protocol Miscellaneous Information 0 unit 05/16/20 07:30 05/16/20 06:56 Insulin Pump Meal Bolus 1 Unit Misc MISCELLANE 2.1 unit ACHS ANNA Administration Protocol Miscellaneous Information 0 unit 05/16/20 02:12 Insulin Pump Correction Bolus 1 Unit Misc MISCELLANE ACHS PRN Blood Sugar - High Protocol Naloxone HCl 0.2 mg 05/16/20 01:14 Naloxone 0.4 Mg/Ml 1 Ml Vial IV Q2M PRN Opioid Reversal Nitroglycerin 0.4 mg 05/16/20 03:29 05/16/20 07:15 Nitroglycerin Sl Tabs 0.4 Mg Tab SUBLINGUAL 0.4 mg Q5M PRN Administration Chest Pain Pantoprazole Sodium 40 mg 05/16/20 09:00 05/16/20 09:24 Pantoprazole 40 Mg/10 Ml Vial IVP 40 mg BID ANNA Administration Paroxetine HCl 20 mg 05/16/20 17:30 Paroxetine 20 Mg Tab PO W/SUPPER ANNA Intake and Output 05/15/20 05/16/20 05/16/20 22:59 06:59 14:59 Intake Total 10 Output Total 400 Balance -400 10 Intake: IV 10 Invasive Line 1 10 Blood Product 0 Rc As-1 Unit 0 [id number] Output: Urine 400 Other: # Voids 1 Weight 102 kg 05/16/20 07:15 05/16/20 07:15
[2020-05-16] MEDS ORDERED: PROPOFOL 10 MG/ML 20 ML VIAL IV ONE (13:12)
[2020-05-16] MEDS ORDERED: IV FLUID CONTINUATION 1,000 ML IV ONE (13:42)
--- NOTE | 2020-05-16 13:55 | P.CONS ---
History of Present Illness - Reason for Consult Consult date: 05/16/20 GI bleed Requesting physician: Esmer Kang - Chief Complaint Melena, shortness of breath, weakness - History of Present Illness 65-year-old female with medical history significant for coronary artery disease status post stent placement, hyperlipidemia, hypertension and diabetes mellitus who presented to the hospital with complaints of shortness of breath epigastric discomfort and black tarry stool. She reports possibly 2 days of frequent loose black tarry bowel movements. Initially she attributed this to diet but he continued and she presented for further evaluation. She reported shortness of breath worsened with exertion. Patient was found to have acute fall in hemoglobin found to be 7.9 on presentation with stool testing positive for occult. The laboratory evaluation significant for WBC 11.7, platelet count 197,000, total bilirubin 0.3, alkaline phosphatase 79, AST 30 and ALT 18. On questioning the patient denies any history of anemia, no Pepto-Bismol, no NSAID use at home. Denies any prior history of peptic ulcer disease or upper endoscopy past. No prior colonoscopy but she has been on omeprazole therapy for the past for reflux. She also reports an episode of nausea and vomiting with some dark colored emesis. Review of Systems REVIEW OF SYSTEMS: CONSTITUTIONAL: Denies any fevers, chills, weight change or fatigue. CARDIOVASCULAR: Denies any chest pain, palpitations high or low blood pressures RESPIRATORY: Denies any cough or, hemoptysis but does report shortness of breath. GENITOURINARY: No dysuria or hematuria. MUSCULOSKELETAL: No weakness reported. SKIN: Denies any new rashes or lesions, jaundice or pallor. PSYCHIATRIC: Denies any depression or anxiety. NEUROLOGY: Denies headache, denies any new focal deficits. EARS/NOSE/THROAT: No recent hearing change, congestion, nasal discharge or sore throat. EYES: No pain in eyes, discharge or change in vision. GASTROINTESTINAL: As per HPI. Past Medical History Past Medical History: Asthma, Coronary Artery Disease (CAD), Cancer, Chest Pain / Angina, Diabetes Mellitus, Deep Vein Thrombosis (DVT), Hyperlipidemia, Hypertension, Myocardial Infarction ([place]), Pneumonia, Pulmonary Embolus (PE), Thyroid Disorder, Vascular Disorder Additional Past Medical History / Comment(s): Pleurisy couple weeks ago, 07-25-15 NSTEMI, goiter, L breast ca with lumpectomy and 33 radiation tx in 1999, frozen shoulders, heart murmer, IDDM-insulin pump, nephrolithiasis bilaterally with surgery-still has some stones in R kidney, hypothyrioidism, DVT L leg, unsure if PE was bilateral or unilateral, goiter, 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 Last Myocardial Infarction Date:: History of Any Multi-Drug Resistant Organisms: None Reported Past Surgical History: Bladder Surgery, Breast Surgery, Coronary Bypass/CABG, Heart Catheterization, Hysterectomy, Orthopedic Surgery Additional Past Surgical History / Comment(s): left breast lumpectomy, 2 surgeries for kidney stones(had stent placed.lithoprisy but had to go in and removed stone, cyst rt wrist, mult trigger finger surgeries, bilateral eyelid surgery, wilmar cataracts-lens implants, 07/18/15 QUAD CABG. 09/12 StentsX2-coronary arteries Past Anesthesia/Blood Transfusion Reactions: Previous Problems w/ Anesthesia, Family History of Problems w/ Anesthesia Additional Past Anesthesia/Blood Transfusion Reaction / Comm: " I wake up during surgery", sister "heart stopped one time on the table" Past Psychological History: No Psychological Hx Reported Smoking Status: Never smoker Past Alcohol Use History: None Reported Past Drug Use History: None Reported - Past Family History Mother Family Medical History: Cancer, Deep Vein Thrombosis (DVT) Additional Family Medical History / Comment(s): uterine CA, Kidney Stones (Sister) Father Family Medical History: Coronary Artery Disease (CAD), Hyperlipidemia Brother(s) Family Medical History: Cancer Sister(s) Family Medical History: Cancer Medications and Allergies Home Medications Medication Instructions Recorded Confirmed Type Albuterol Sulfate [Ventolin HFA] 2 puff INHALATION RT-QID PRN 03/20/14 05/16/20 History INSULIN ASPART (NovoLOG) [NovoLOG 0.01 units SQ-PUMP CONTINUOUS 03/20/14 History (formulary)] Levothyroxine Sodium [Synthroid] 50 mcg PO QAM 03/20/14 05/16/20 History Atorvastatin [Lipitor] 80 mg PO HS #30 tab 09/13/15 05/16/20 Rx Aspirin EC [Ecotrin] 325 mg PO QAM 11/20/15 05/16/20 History Clopidogrel [Plavix] 75 mg PO W/BRKFST 11/20/15 05/16/20 History Metoprolol Tartrate [Lopressor] 50 mg PO BID 11/20/15 05/16/20 History PARoxetine [Paxil] 20 mg PO W/SUPPER 11/20/15 05/16/20 History Cholecalciferol [Vitamin D3 (25 1,000 unit PO DAILY 05/16/20 05/16/20 History Mcg = 1000 Iu)] Ubidecarenone [Co Q-10] 300 mg PO DAILY 05/16/20 05/16/20 History Allergies Allergy/AdvReac Type Severity Reaction Status Date / Time HILARY Inhibitors Allergy Severe Swelling Verified 05/16/20 08:11 ezetimibe [From Zetia] Allergy Unknown Verified 05/16/20 08:11 mold Allergy Unknown Verified 05/16/20 08:11 Physical Exam Vitals: Vital Signs Temp Pulse Pulse Pulse Resp BP BP 05/16/20 10:49 98.4 F 84 16 105/55 05/16/20 10:19 98.6 F 86 16 104/51 05/16/20 10:09 98.7 F 82 16 89/49 05/16/20 09:24 90 16 05/16/20 07:45 98.4 F 90 18 98/52 05/16/20 03:39 98.9 F 97 18 111/67 05/16/20 02:35 79 18 109/62 05/16/20 02:24 72 16 116/68 05/16/20 01:00 70 120/55 05/16/20 00:18 92 05/16/20 00:10 81 17 106/49 05/15/20 23:37 98.9 F 92 26 H 118/48 Pulse Ox 05/16/20 10:49 98 05/16/20 10:19 98 05/16/20 10:09 98 05/16/20 09:24 05/16/20 07:45 98 05/16/20 03:39 98 05/16/20 02:35 99 05/16/20 02:24 98 05/16/20 01:00 98 05/16/20 00:18 05/16/20 00:10 100 05/15/20 23:37 99 Intake and Output 05/15/20 05/16/20 05/16/20 22:59 06:59 14:59 Intake Total 10 Output Total 400 Balance -400 10 Intake: IV 10 Invasive Line 1 10 Blood Product 0 Rc As-1 Unit 0 [id number] Output: Urine 400 Other: # Voids 1 Weight 102 kg On physical examination, patient appears comfortable in no apparent distress. HEAD: Normocephalic, atraumatic. EYES: No scleral icterus. No conjunctival injection. MOUTH: No lesions, tongue midline. NECK: Trachea midline, no gross abnormalities. CHEST: Decreased air entry in all lung. HEART: S1-S2 appreciated. ABDOMEN: Soft, obese, nontender. Bowel sounds are positive. No organomegaly. No guarding or rigidity. EXTREMITIES: No pedal edema. SKIN: No rashes, no jaundice. NEUROLOGIC: Alert and oriented x3. No focal deficits. Results CBC & Chem 7: 05/16/20 07:15 05/16/20 07:15 Labs: Abnormal Lab Results - Last 24 Hours (Table) 05/16/20 05/16/20 05/16/20 Range/Units 00:05 00:05 00:05 WBC 11.7 H (3.8-10.6) k/uL RBC 2.86 L (3.80-5.40) m/uL Hgb 7.9 L (11.4-16.0) gm/dL Hct 24.0 L (34.0-46.0) % RDW 15.7 H (11.5-15.5) % Neutrophils # 8.3 H (1.3-7.7) k/uL APTT 18.7 L (22.0-30.0) sec Sodium 134 L (137-145) mmol/L Chloride (98-107) mmol/L Carbon Dioxide 19 L (22-30) mmol/L BUN 42 H (7-17) mg/dL Glucose 305 H (74-99) mg/dL POC Glucose (mg/dL) (75-99) mg/dL Magnesium 1.5 L (1.6-2.3) mg/dL Troponin I (0.000-0.034) ng/mL Total Protein 5.2 L (6.3-8.2) g/dL Albumin 3.1 L (3.5-5.0) g/dL Stool Occult Blood (Negative) Crossmatch 05/16/20 05/16/20 05/16/20 Range/Units 01:14 01:14 02:19 WBC (3.8-10.6) k/uL RBC (3.80-5.40) m/uL Hgb (11.4-16.0) gm/dL Hct (34.0-46.0) % RDW (11.5-15.5) % Neutrophils # (1.3-7.7) k/uL APTT (22.0-30.0) sec Sodium (137-145) mmol/L Chloride (98-107) mmol/L Carbon Dioxide (22-30) mmol/L BUN (7-17) mg/dL Glucose (74-99) mg/dL POC Glucose (mg/dL) 354 H (75-99) mg/dL Magnesium (1.6-2.3) mg/dL Troponin I (0.000-0.034) ng/mL Total Protein (6.3-8.2) g/dL Albumin (3.5-5.0) g/dL Stool Occult Blood Positive H (Negative) Crossmatch See Detail 05/16/20 05/16/20 05/16/20 Range/Units 06:53 07:15 07:15 WBC 13.3 H (3.8-10.6) k/uL RBC 2.75 L (3.80-5.40) m/uL Hgb 7.6 L (11.4-16.0) gm/dL Hct 23.6 L (34.0-46.0) % RDW 16.3 H (11.5-15.5) % Neutrophils # (1.3-7.7) k/uL APTT (22.0-30.0) sec Sodium (137-145) mmol/L Chloride (98-107) mmol/L Carbon Dioxide (22-30) mmol/L BUN (7-17) mg/dL Glucose (74-99) mg/dL POC Glucose (mg/dL) 279 H (75-99) mg/dL Magnesium (1.6-2.3) mg/dL Troponin I 0.039 H* (0.000-0.034) ng/mL Total Protein (6.3-8.2) g/dL Albumin (3.5-5.0) g/dL Stool Occult Blood (Negative) Crossmatch 05/16/20 05/16/20 Range/Units 07:15 11:52 WBC (3.8-10.6) k/uL RBC (3.80-5.40) m/uL Hgb (11.4-16.0) gm/dL Hct (34.0-46.0) % RDW (11.5-15.5) % Neutrophils # (1.3-7.7) k/uL APTT (22.0-30.0) sec Sodium 135 L (137-145) mmol/L Chloride 108 H (98-107) mmol/L Carbon Dioxide (22-30) mmol/L BUN 36 H (7-17) mg/dL Glucose 246 H (74-99) mg/dL POC Glucose (mg/dL) 277 H (75-99) mg/dL Magnesium (1.6-2.3) mg/dL Troponin I (0.000-0.034) ng/mL Total Protein (6.3-8.2) g/dL Albumin (3.5-5.0) g/dL Stool Occult Blood (Negative) Crossmatch Assessment and Plan (1) Melena Narrative/Plan: 65-year-old female with multiple medical comorbidities including coronary artery disease on Plavix therapy presents to the hospital with melena, coffee-ground emesis and shortness of breath worse with exacerbation. No history of EGD or prior peptic ulcer disease. Previously she had been on omeprazole therapy but this was stopped. She denies any NSAID use or use of Pepto-Bismol. Unclear etiology, differential includes peptic ulcer disease, esophagitis, gastritis, AVM or other etiology. Current Visit: Yes Status: Acute Code(s): K92.1 - MELENA SNOMED Code(s): 4699911 (2) Anemia associated with acute blood loss Current Visit: Yes Status: Acute Code(s): D62 - ACUTE POSTHEMORRHAGIC ANEMIA SNOMED Code(s): 900143333 (3) GI bleed Current Visit: Yes Status: Acute Code(s): K92.2 - GASTROINTESTINAL HEMORRHAGE, UNSPECIFIED SNOMED Code(s): 51871464 Plan: Supportive care Nothing by mouth Continue to monitor hemoglobin and hematocrit and transfuse as needed Continue to hold any anticoagulation antiplatelet therapy at this time Avoid NSAID use Patient should be on Protonix 40 mg IV twice daily Plan for EGD for further evaluation Further recommendations pending findings of EGD
--- NOTE | 2020-05-16 14:02 | P.PCN ---
Date of Procedure: 05/16/20 Description of Procedure: BRIEF HISTORY: 65-year-old female with medical history significant for coronary artery disease status post stent placement, hyperlipidemia, hypertension and diabetes mellitus who presented to the hospital with complaints of shortness of breath epigastric discomfort and black tarry stool. She reports possibly 2 days of frequent loose black tarry bowel movements. Initially she attributed this to diet but he continued and she presented for further evaluation. She reported shortness of breath worsened with exertion. Patient was found to have acute fall in hemoglobin found to be 7.9 on presentation with stool testing positive for occult. The laboratory evaluation significant for WBC 11.7, platelet count 197,000, total bilirubin 0.3, alkaline phosphatase 79, AST 30 and ALT 18. On questioning the patient denies any history of anemia, no Pepto-Bismol, no NSAID use at home. Denies any prior history of peptic ulcer disease or upper endoscopy past. No prior colonoscopy but she has been on omeprazole therapy for the past for reflux. She also reports an episode of nausea and vomiting with some dark colored emesis. PROCEDURE PERFORMED: Esophagogastroduodenoscopy with biopsy. PREOPERATIVE DIAGNOSIS: Melena, anemia of acute blood loss. ESTIMATED BLOOD LOSS: Minimal. IV sedation per anesthesia. PROCEDURE: After informed consent was obtained, the patient was brought into the endoscopy unit. IV sedation was administered by Anesthesia under continuous monitoring. Initially the Olympus GIF-190 video endoscope was inserted into the mouth. Esophagus intubated without any difficulty. It was gradually advanced into the stomach and duodenum and carefully examined. The bulb and the second part of the duodenum appeared normal. The scope at this time was withdrawn to the stomach, adequately insufflated with air, and upon careful examination, mucosa of the antrum, body, cardia and the fundus appeared normal, except for a 1.2 cm polyp in the antrum with some erythema suspicious for bleeding from the polyp. Polypectomy not performed in the setting of Plavix therapy however the polyp was biopsied. The scope was then withdrawn into the esophagus. The GE junction was located at 35 cm from the incisors. The esophagus appeared normal. There were no erosions or ulcerations seen and the patient tolerated the procedure well. IMPRESSION: 1. Nonbleeding antral polyp, with some erythema noted on the polyps suspicion is that it is a source of bleeding, biopsies were taken however polypectomy was not performed due to active Plavix use 2. No active bleeding or old blood noted. RECOMMENDATIONS: The findings of this examination were discussed with the patient. Okay for liquid diet. Continue to hold anticoagulation and antiplatelet therapy for now. Continue to monitor hemoglobin and hematocrit and transfuse as needed. Ravi nue Protonix 40 mg twice daily indefinitely. Patient will likely need to follow-up in 2-3 weeks after discharge for polypectomy, pending pathology from biopsies from polyp with antiplatelet therapy held for 5 days at that time.
[2020-05-16 14:59] LABS: Glucose,Whole Blood 282 mg/dL (75-99)
[2020-05-16] MEDS: NITROGLYCERIN OINT 1 INCH/GM PACKET TOPICAL SCH ×2 (15:16→22:03)
[2020-05-16] MEDS: PARoxetine 20 MG TAB PO SCH (15:16)
[2020-05-16] MEDS: LEVOTHYROXINE 50 MCG TAB PO SCH (15:19)
[2020-05-16 15:47] LABS: Anisocytosis Slight; HCT 25.2 % (34.0-46.0); HGB 8.1 gm/dL (11.4-16.0); Hypochromasia Slight; MCH 28.2 pg (25.0-35.0); MCHC 32.1 g/dL (31.0-37.0); MCV 87.7 fL (80.0-100.0); Mean Platelet Volume 7.7; Platelet Count 165 k/uL (150-450); RBC 2.88 m/uL (3.80-5.40); RDW 16.3 % (11.5-15.5); WBC 10.3 k/uL (3.8-10.6)
[2020-05-16 16:14] LABS: Hemoglobin A1C 8.9 % (4.0-6.0)
[2020-05-16 16:41] LABS: Glucose,Whole Blood 279 mg/dL (75-99)
[2020-05-16] MEDS ORDERED: ONDANSETRON 4 MG/2 ML VIAL IVP PRN (18:18)
[2020-05-16] MEDS ORDERED: MAG HYDROX/AL HYDROX/SIMETH 30 ML, HYOSCYAMINE ELIXIR 10 ML, LIDOCAINE VISCOUS 2% 10 ML PO ONE ×3 (19:00)
[2020-05-16 19:10] LABS: Anisocytosis Slight; HCT 24.9 % (34.0-46.0); MCHC 32.3 g/dL (31.0-37.0); MCV 86.7 fL (80.0-100.0); Platelet Count 188 k/uL (150-450); RBC 2.87 m/uL (3.80-5.40); RDW 16.8 % (11.5-15.5); WBC 9.9 k/uL (3.8-10.6)
--- NOTE | 2020-05-16 19:24 | P.PN ---
Progress Note - Text Progress Note Date: 05/16/20 Called to see patient regard chest pain. Patient had an additional episode of chest pain at approximately 1530. At that point in time her chest pain was relieved with 2 nitroglycerin. EKG was checked which revealed no signs of acute ischemia. Troponin was checked which was 0.025. Secondary to improvement in her chest pain with nitroglycerin, Nitro ointment was ordered. Repeat hemoglobin was 8.1. No additional blood was ordered. EGD from today was reviewed which showed an antral polyp but no signs of gastric ulcers. Echocardiogram reviewed which showed an ejection fraction of 50-55%. Patient again started having chest pain despite nitroglycerin ointment at approximately 1800. On arrival to room patient stated she was eating and then started having chest pain. She states it feels as though it starts in her pipe and then radiates to the left side of her chest. It is associated with nausea, dry heaves, shortness of breath. Repeat EKG ordered which shows some J-point depression but no signs of T-wave inversion or ST segment depression. Patient was ordered for a GI cocktail, Zofran, and d-dimer. Cardiology has signed off of this patient and suggested that primary determine if aspirin versus Plavix could be restarted on discharge. Cardiology re- consulted secondary to patient's history of coronary artery bypass grafting with 3 cardiac stenting and continued chest pain that has been responsive to nitroglycerin.
[2020-05-16 20:23] LABS: Glucose,Whole Blood 356 mg/dL (75-99)
[2020-05-16] MEDS: ATORVASTATIN 80 MG TAB PO SCH (22:03)
[2020-05-16] MEDS: METOPROLOL TARTRATE 50 MG TAB PO SCH (22:03)
[2020-05-17 01:12] LABS: Anisocytosis Slight; HCT 23.8 % (34.0-46.0); HGB 7.6 gm/dL (11.4-16.0); MCH 27.4 pg (25.0-35.0); MCHC 31.9 g/dL (31.0-37.0); Mean Platelet Volume 7.7; Platelet Count 191 k/uL (150-450); RBC 2.77 m/uL (3.80-5.40)
[2020-05-17] MEDS: NITROGLYCERIN OINT 1 INCH/GM PACKET TOPICAL SCH ×5 (03:54→23:18)
[2020-05-17] MEDS: LEVOTHYROXINE 50 MCG TAB PO SCH (05:47)
[2020-05-17 06:27] LABS: Glucose,Whole Blood 251 mg/dL (75-99)
[2020-05-17] MEDS: INSULIN PUMP MEAL BOLUS 1 UNIT MISC MISCELLANE SCH ×4 (06:37→20:17)
[2020-05-17 08:24] LABS: Anisocytosis Slight; HCT 23.6 % (34.0-46.0); HGB 7.6 gm/dL (11.4-16.0); Hypochromasia Slight; MCH 27.7 pg (25.0-35.0); MCHC 32.1 g/dL (31.0-37.0); MCV 86.3 fL (80.0-100.0); Mean Platelet Volume 7.6; Platelet Count 169 k/uL (150-450); RBC 2.73 m/uL (3.80-5.40); RDW 16.9 % (11.5-15.5); WBC 7.1 k/uL (3.8-10.6)
[2020-05-17 08:43] LABS: ALT 12 U/L (4-34); AST 31 U/L (14-36); African American GFR (CKD) >90 (>60 ml/min/1.73 sqM); Alkaline Phosphatase 63 U/L (38-126); Anion Gap 2 mmol/L; Blood Urea Nitrogen 15 mg/dL (7-17); Carbon Dioxide 25 mmol/L (22-30); Chloride 112 mmol/L (98-107); Glucose 214 mg/dL (74-99); Non-African American GFR(CKD) 90 (>60 ml/min/1.73 sqM); Phosphorus 2.8 mg/dL (2.5-4.5); Potassium 4.5 mmol/L (3.5-5.1); Sodium 139 mmol/L (137-145); Total Bilirubin 0.6 mg/dL (0.2-1.3); Total Protein 5.1 g/dL (6.3-8.2)
[2020-05-17] MEDS: PANTOPRAZOLE 40 MG/10 ML VIAL IVP SCH ×2 (08:52→20:22)
[2020-05-17] MEDS: METOPROLOL TARTRATE 50 MG TAB PO SCH ×2 (08:52→20:22)
--- NOTE | 2020-05-17 10:58 | P.PN ---
Subjective Progress Note Date: 05/17/20 Principal diagnosis: Melena, anemia of acute blood loss Patient is seen in her room with no acute complaints. She did have some chest pain last night which is resolved. No further signs or symptoms of bleeding. Objective - Vital Signs Vital signs: Vital Signs Temp 98.6 F 05/17/20 00:00 Pulse 76 05/17/20 04:00 Resp 17 05/17/20 04:00 BP 119/57 05/17/20 04:00 Pulse Ox 100 05/17/20 04:00 Intake & Output 05/16/20 05/17/20 05/17/20 18:59 06:59 18:59 Intake Total 1070 480 Output Total 800 Balance 270 480 Weight 110 kg Intake: IV 220 Invasive Line 1 20 Oral 540 480 Blood Product 310 Rc As-1 Unit 310 [id number] Output: Urine 800 Other: # Voids 1 1 - Exam On physical examination, patient appears comfortable in no apparent distress. HEAD: Normocephalic, atraumatic. EYES: No scleral icterus. No conjunctival injection. MOUTH: No lesions, tongue midline. NECK: Trachea midline, no gross abnormalities. ABDOMEN: Soft, obese. Bowel sounds are positive. No organomegaly. No guarding or rigidity. EXTREMITIES: No pedal edema. SKIN: No rashes, no jaundice. NEUROLOGIC: Alert and oriented x3. No focal deficits. - Labs CBC & Chem 7: 05/17/20 07:32 05/17/20 07:32 Labs: Abnormal Lab Results - Last 24 Hours (Table) 05/16/20 05/16/20 05/16/20 Range/Units 01:14 07:15 11:52 RBC (3.80-5.40) m/uL Hgb (11.4-16.0) gm/dL Hct (34.0-46.0) % RDW (11.5-15.5) % Chloride (98-107) mmol/L Glucose (74-99) mg/dL POC Glucose (mg/dL) 277 H (75-99) mg/dL Hemoglobin A1c 8.9 H (4.0-6.0) % Calcium (8.4-10.2) mg/dL Total Protein (6.3-8.2) g/dL Albumin (3.5-5.0) g/dL Crossmatch See Detail 05/16/20 05/16/20 05/16/20 Range/Units 14:58 15:11 16:39 RBC 2.88 L (3.80-5.40) m/uL Hgb 8.1 L (11.4-16.0) gm/dL Hct 25.2 L (34.0-46.0) % RDW 16.3 H (11.5-15.5) % Chloride (98-107) mmol/L Glucose (74-99) mg/dL POC Glucose (mg/dL) 282 H 279 H (75-99) mg/dL Hemoglobin A1c (4.0-6.0) % Calcium (8.4-10.2) mg/dL Total Protein (6.3-8.2) g/dL Albumin (3.5-5.0) g/dL Crossmatch 05/16/20 05/16/20 05/17/20 Range/Units 18:42 20:21 00:45 RBC 2.87 L 2.77 L (3.80-5.40) m/uL Hgb 8.0 L 7.6 L (11.4-16.0) gm/dL Hct 24.9 L 23.8 L (34.0-46.0) % RDW 16.8 H 17.0 H (11.5-15.5) % Chloride (98-107) mmol/L Glucose (74-99) mg/dL POC Glucose (mg/dL) 356 H (75-99) mg/dL Hemoglobin A1c (4.0-6.0) % Calcium (8.4-10.2) mg/dL Total Protein (6.3-8.2) g/dL Albumin (3.5-5.0) g/dL Crossmatch 05/17/20 05/17/20 05/17/20 Range/Units 06:18 07:32 07:32 RBC 2.73 L (3.80-5.40) m/uL Hgb 7.6 L (11.4-16.0) gm/dL Hct 23.6 L (34.0-46.0) % RDW 16.9 H (11.5-15.5) % Chloride 112 H (98-107) mmol/L Glucose 214 H (74-99) mg/dL POC Glucose (mg/dL) 251 H (75-99) mg/dL Hemoglobin A1c (4.0-6.0) % Calcium 8.0 L (8.4-10.2) mg/dL Total Protein 5.1 L (6.3-8.2) g/dL Albumin 3.0 L (3.5-5.0) g/dL Crossmatch Assessment and Plan (1) Melena Narrative/Plan: 65-year-old female with multiple medical comorbidities including coronary artery disease on Plavix therapy presents to the hospital with melena, coffee-ground emesis and shortness of breath worse with exacerbation. No history of EGD or prior peptic ulcer disease. Previously she had been on omeprazole therapy but this was stopped. She denies any NSAID use or use of Pepto-Bismol. EGD performed in evaluation on 05/16/2020 significant for nonbleeding antral ulcer with some erythema on the polyp suspicious for the source of bleeding. Biopsies taken with pathology pending the polyp was not removed in the setting of recent Plavix use. Current Visit: Yes Status: Acute Code(s): K92.1 - MELENA SNOMED Code(s): 8157359 (2) Anemia associated with acute blood loss Current Visit: Yes Status: Acute Code(s): D62 - ACUTE POSTHEMORRHAGIC ANEMIA SNOMED Code(s): 727061990 (3) GI bleed Current Visit: Yes Status: Acute Code(s): K92.2 - GASTROINTESTINAL HEMO RRHAGE, UNSPECIFIED SNOMED Code(s): 91991505 Plan: Supportive care Okay to advance to cardiac diet Continue to monitor hemoglobin and hematocrit and transfuse as needed Continue to hold any anticoagulation antiplatelet therapy at this time Avoid NSAID use Patient should be on Protonix 40 mg IV twice daily Await pathology from biopsies of polyp Cardiology service reconsult to to see the patient Patient will likely need polypectomy when off of her antiplatelet therapy/Plavix for 5 days due to risks of bleeding with timing to be determined depending pathology from biopsies Thank you for allowing us to participate in the care of the patient
[2020-05-17 11:45] LABS: Glucose,Whole Blood 194 mg/dL (75-99)
--- NOTE | 2020-05-17 12:02 | US ---
EXAMINATION TYPE: US gallbladder DATE OF EXAM: 05/17/2020 COMPARISON: CT 2013 CLINICAL HISTORY: pain, nausea. EXAM MEASUREMENTS: Liver Length: 16.5 cm Gallbladder Wall: 0.3 cm CBD: 0.6 cm Right Kidney: 12.6 x 3.9 x 6.8 cm Pancreas: prominent duct at 0.3 cm Liver: wnl Gallbladder: No stones seen Evidence for sonographic Cerda's sign: Yes CBD: wnl Right Kidney: No hydronephrosis or masses seen IMPRESSION: 1. Assessment pancreas is limited due to mild prominence the pancreatic duct. Correlate with CT abdom en as clinically warranted. 2. No evidence of gallstones.
--- NOTE | 2020-05-17 12:29 | P.PN ---
Subjective Progress Note Date: 05/17/20 Patient is doing well today. She does not have any complaints. She denies any chest pain. She has nitro glycerin ointment to her left chest. No evidence of GI bleed. Objective - Vital Signs Vital signs: Vital Signs Temp 98.2 F 05/17/20 08:30 Pulse 76 05/17/20 08:30 Resp 16 05/17/20 08:30 BP 109/56 05/17/20 08:30 Pulse Ox 94 L 05/17/20 08:30 Intake & Output 05/16/20 05/17/20 05/17/20 18:59 06:59 18:59 Intake Total 1070 480 Output Total 800 Balance 270 480 Weight 110 kg Intake: IV 220 Invasive Line 1 20 Oral 540 480 Blood Product 310 Rc As-1 Unit 310 [id number] Output: Urine 800 Other: # Voids 1 1 - Exam General: The patient is awake and alert, in no distress Eye: there is normal conjunctiva bilaterally. Neck: The neck is supple, there is no JVD. Cardiovascular: Normal S1-S2, no S3-S4, no murmurs. Respiratory: Lungs clear to auscultation bilaterally Gastrointestinal: Abdomen is soft, nontender Musculoskeletal: There is no pedal edema. Neurological:. Speech is normal. Skin: Skin is warm and dry - Labs CBC & Chem 7: 05/17/20 07:32 05/17/20 07:32 Labs: Abnormal Lab Results - Last 24 Hours (Table) 05/16/20 05/16/20 05/16/20 Range/Units 01:14 07:15 14:58 RBC (3.80-5.40) m/uL Hgb (11.4-16.0) gm/dL Hct (34.0-46.0) % RDW (11.5-15.5) % Chloride (98-107) mmol/L Glucose (74-99) mg/dL POC Glucose (mg/dL) 282 H (75-99) mg/dL Hemoglobin A1c 8.9 H (4.0-6.0) % Calcium (8.4-10.2) mg/dL Total Protein (6.3-8.2) g/dL Albumin (3.5-5.0) g/dL Crossmatch See Detail 05/16/20 05/16/2005/16/20 Range/Units 15:11 16:39 18:42 RBC 2.88 L 2.87 L (3.80-5.40) m/uL Hgb 8.1 L 8.0 L (11.4-16.0) gm/dL Hct 25.2 L 24.9 L (34.0-46.0) % RDW 16.3 H 16.8 H (11.5-15.5) % Chloride (98-107) mmol/L Glucose (74-99) mg/dL POC Glucose (mg/dL) 279 H (75-99) mg/dL Hemoglobin A1c (4.0-6.0) % Calcium (8.4-10.2) mg/dL Total Protein (6.3-8.2) g/dL Albumin (3.5-5.0) g/dL Crossmatch 05/16/20 05/17/20 05/17/20 Range/Units 20:21 00:45 06:18 RBC 2.77 L (3.80-5.40) m/uL Hgb 7.6 L (11.4-16.0) gm/dL Hct 23.8 L (34.0-46.0) % RDW 17.0 H (11.5-15.5) % Chloride (98-107) mmol/L Glucose (74-99) mg/dL POC Glucose (mg/dL) 356 H 251 H (75-99) mg/dL Hemoglobin A1c (4.0-6.0) % Calcium (8.4-10.2) mg/dL Total Protein (6.3-8.2) g/dL Albumin (3.5-5.0) g/dL Crossmatch 05/17/20 05/17/20 05/17/20 Range/Units 07:32 07:32 11:44 RBC 2.73 L (3.80-5.40) m/uL Hgb 7.6 L (11.4-16.0) gm/dL Hct 23.6 L (34.0-46.0) % RDW 16.9 H (11.5-15.5) % Chloride 112 H (98-107) mmol/L Glucose 214 H (74-99) mg/dL POC Glucose (mg/dL) 194 H (75-99) mg/dL Hemoglobin A1c (4.0-6.0) % Calcium 8.0 L (8.4-10.2) mg/dL Total Protein 5.1 L (6.3-8.2) g/dL Albumin 3.0 L (3.5-5.0) g/dL Crossmatch Assessment and Plan Assessment: This is a 65-year-old female with complex past medical history noted below presented to the emergency room with black stool. Patient was evaluated in the ER and admitted to the hospital for further management for medical problems noted below. 1. Upper GI bleed, status post EGD on 05/16 with evidence of a nonbleeding antral ulcer and a polyp suspicious for the source of bleeding. Biopsy taken pending pathology. Continue IV Protonix twice daily. Continue to hold aspirin and Plavix for now. We will discuss with GI plan for polypectomy maybe during this admission? 2. Episodes of angina, now resolved. 12-lead EKG showed no acute ischemic changes. Serial troponin were normal. Patient was seen and evaluated by cardiology. Echocardiogram showed preserved ejection fraction 55%. No further recommendations at this time. 3. Acute on chronic blood loss anemia, status post 1 unit of PRBC during this admission. Currently hemoglobin stable around 7.6 4. Coronary artery disease with history of CABG and stent placement, at home patient was maintained on aspirin and Plavix. Discontinue Plavix permanently and resume aspirin when cleared by GI. 5. Essential hypertension, blood pressure well controlled. Continue current regimen 6. Type 2 diabetes, continue current dose of insulin
--- NOTE | 2020-05-17 13:06 | P.PN ---
Subjective Progress Note Date: 05/17/20 CHIEF COMPLAINT: Chest pain HISTORY OF PRESENT ILLNESS: 05/16/2020 This is a 65-year old female with a past medical history significant for hypertension, hyperlipidemia, diabetes mellitus, coronary artery disease with previous CABG and stent placement. Patient follows in the office with Dr. Parish. We have been asked to see the patient in consultation for chest pain. Patient examined this morning at the bedside. Patient states she has been having black stools since Tuesday. She reports that she was taking her Protonix but was told to wean herself off that by her primary care physician. She reports she last took her Protonix about a week ago. She is on aspirin and Plavix. Patient states she underwent a CABG 4 in 2015. She reports two of her grafts became blocked and a couple months after her CABG she underwent a stent placement. She reports feeling very short of breath with minimal exertion. She also reports feeling chest pain when she is short of breath and exerting herself. 05/17/2020 Patient is status post EGD revealing nonbleeding antral polyp with some erythema noted on the polyp suspicion for patient's source of bleeding. Biopsies were taken. However no polypectomy was performed due to patient being on Plavix. Patient examined this morning at the bedside. Patient reports having 3-4 episodes of chest discomfort yesterday afternoon when she was out of bed and ambulating and another episode when she was eating. She was given sublingual nitroglycerin and started on nitroglycerin ointment. EKGs completed at that time did not reveal any evidence of acute ischemia. She was also given a GI cocktail. Patient denies having any chest pain throughout the night. The patient did have another episode of chest discomfort this morning. Repeat EKG shows t-wave inversions in anterior lateral leads. Echocardiogram completed revealed ejection fraction 55-60%. PHYSICAL EXAM: VITAL SIGNS: Reviewed. GENERAL: Well-developed in no acute distress. HEENT: Head is normocephalic. Pupils are equal, round. Sclerae anicteric. Mucous membranes of the mouth are moist. Neck supple. No JVD or thyromegaly LUNGS: Respirations even and unlabored. Lungs essentially clear to auscultation bilaterally. HEART: Regular rate and rhythm. S1 and S2 heard. ABDOMEN: Soft. Nondistended. Nontender. EXTREMITIES: Normal range of motion. No clubbing or cyanosis. Peripheral pulses intact. No lower extremity edema NEUROLOGIC: Awake and alert. Oriented x 3. ASSESSMENT: Acute GI bleed Acute blood loss anemia Abnormal troponin, secondary to oxygen supply and demand mismatch, type II NE, due to acute blood loss anemia Coronary artery disease with previous CABG 4 and subsequent PCI Hypertension Hyperlipidemia Diabetes mellitus, type II Chest pain, with new T-wave inversions in anterior lateral leads PLAN: Patient with new anterolateral T-wave inversions on EKG Continue nitro paste Q6 hours Continue to hold aspirin and plavix. Possible polypectomy per GI dictation. If plans to do this admission, will continue to hold medications. If no plans to complete during this admission, would resume medications gerald when cleared by GI service Continue medical management at this time Further recommendations pending Nurse practitioner note has been reviewed by physician. Signing provider agrees with the documented findings, assessment, and plan of care. Objective - Vital Signs Vital signs: Vital Signs Temp 98.2 F 05/17/20 08:30 Pulse 76 05/17/20 08:30 Resp 16 05/17/20 08:30 BP 109/56 05/17/20 08:30 Pulse Ox 94 L 05/17/20 08:30 Intake & Output 05/16/20 05/17/20 05/17/20 18:59 06:59 18:59 Intake Total 1070 480 Output Total 800 Balance 270 480 Weight 110 kg Intake: IV 220 Invasive Line 1 20 Oral 540 480 Blood Product 310 Rc As-1 Unit 310 [id number] Output: Urine 800 Other: # Voids 1 1 - Labs CBC & Chem 7: 05/17/20 07:32 05/17/20 07:32 Labs: Abnormal Lab Results - Last 24 Hours (Table) 05/16/20 05/16/20 05/16/20 Range/Units 01:14 07:15 14:58 RBC (3.80-5.40) m/uL Hgb (11.4-16.0) gm/dL Hct (34.0-46.0) % RDW (11.5-15.5) % Chloride (98-107) mmol/L Glucose (74-99) mg/dL POC Glucose (mg/dL) 282 H (75-99) mg/dL Hemoglobin A1c 8.9 H (4.0-6.0) % Calcium (8.4-10.2) mg/dL Total Protein (6.3-8.2) g/dL Albumin (3.5-5.0) g/dL Crossmatch See Detail 05/16/20 05/16/20 05/16/20 Range/Units 15:11 16:39 18:42 RBC 2.88 L 2.87 L (3.80-5.40) m/uL Hgb 8.1 L 8.0 L (11.4-16.0) gm/dL Hct 25.2 L 24.9 L (34.0-46.0) % RDW 16.3 H 16.8 H (11.5-15.5) % Chloride (98-107) mmol/L Glucose (74-99) mg/dL POC Glucose (mg/dL) 279 H (75-99) mg/dL Hemoglobin A1c (4.0-6.0) % Calcium (8.4-10.2) mg/dL Total Protein (6.3-8.2) g/dL Albumin (3.5-5.0) g/dL Crossmatch 05/16/20 05/17/20 05/17/20 Range/Units 20:21 00:45 06:18 RBC 2.77 L (3.80-5.40) m/uL Hgb 7.6 L (11.4-16.0) gm/dL Hct 23.8 L (34.0-46.0) % RDW 17.0 H (11.5-15.5) % Chloride (98-107) mmol/L Glucose (74-99) mg/dL POC Glucose (mg/dL) 356 H 251 H (75-99) mg/dL Hemoglobin A1c (4.0-6.0) % Calcium (8.4-10.2) mg/dL Total Protein (6.3-8.2) g/dL Albumin (3.5-5.0) g/dL Crossmatch 05/17/20 05/17/20 05/17/20 Range/Units 07:32 07:32 11:44 RBC 2.73 L (3.80-5.40) m/uL Hgb 7.6 L (11.4-16.0) gm/dL Hct 23.6 L (34.0-46.0) % RDW 16.9 H (11.5-15.5) % Chloride 112 H (98-107) mmol/L Glucose 214 H (74-99) mg/dL POC Glucose (mg/dL) 194 H (75-99) mg/dL Hemoglobin A1c (4.0-6.0) % Calcium 8.0 L (8.4-10.2) mg/dL Total Protein 5.1 L (6.3-8.2) g/dL Albumin 3.0 L (3.5-5.0) g/dL Crossmatch
[2020-05-17 17:07] LABS: Glucose,Whole Blood 133 mg/dL (75-99)
[2020-05-17] MEDS: PARoxetine 20 MG TAB PO SCH (17:40)
[2020-05-17 20:06] LABS: Glucose,Whole Blood 150 mg/dL (75-99)
[2020-05-17] MEDS: ATORVASTATIN 80 MG TAB PO SCH (20:22)
[2020-05-17] MEDS: NITROGLYCERIN SL TABS 0.4 MG TAB SUBLINGUAL PRN (23:28)
[2020-05-18] MEDS: INSULIN PUMP MEAL BOLUS 1 UNIT MISC MISCELLANE SCH ×4 (06:07→21:48)
[2020-05-18] MEDS: NITROGLYCERIN OINT 1 INCH/GM PACKET TOPICAL SCH ×4 (06:07→23:46)
[2020-05-18 06:08] LABS: Glucose,Whole Blood 233 mg/dL (75-99)
[2020-05-18] MEDS: LEVOTHYROXINE 50 MCG TAB PO SCH (06:08)
[2020-05-18] MEDS: PANTOPRAZOLE 40 MG/10 ML VIAL IVP SCH (09:55)
[2020-05-18] MEDS: CLOPIDOGREL 75 MG TAB PO SCH (09:56)
[2020-05-18] MEDS: METOPROLOL TARTRATE 50 MG TAB PO SCH ×2 (09:56→21:47)
[2020-05-18 11:36] LABS: Anisocytosis Slight; HCT 24.3 % (34.0-46.0); HGB 7.9 gm/dL (11.4-16.0); MCH 28.1 pg (25.0-35.0); MCHC 32.6 g/dL (31.0-37.0); MCV 86.3 fL (80.0-100.0); Mean Platelet Volume 9.3; Platelet Count 152 k/uL (150-450); Poikilocytosis Slight; RBC 2.82 m/uL (3.80-5.40); RDW 18.2 % (11.5-15.5)
--- NOTE | 2020-05-18 11:54 | P.PN ---
Subjective Progress Note Date: 05/18/20 CHIEF COMPLAINT: Chest pain HISTORY OF PRESENT ILLNESS: 05/16/2020 This is a 65-year old female with a past medical history significant for hypertension, hyperlipidemia, diabetes mellitus, coronary artery disease with previous CABG and stent placement. Patient follows in the office with Dr. Parish. We have been asked to see the patient in consultation for chest pain. Patient examined this morning at the bedside. Patient states she has been having black stools since Tuesday. She reports that she was taking her Protonix but was told to wean herself off that by her primary care physician. She reports she last took her Protonix about a week ago. She is on aspirin and Plavix. Patient states she underwent a CABG 4 in 2015. She reports two of her grafts became blocked and a couple months after her CABG she underwent a stent placement. She reports feeling very short of breath with minimal exertion. She also reports feeling chest pain when she is short of breath and exerting herself. 05/17/2020 Patient is status post EGD revealing nonbleeding antral polyp with some erythema noted on the polyp suspicion for patient's source of bleeding. Biopsies were taken. However no polypectomy was performed due to patient being on Plavix. Patient examined this morning at the bedside. Patient reports having 3-4 episodes of chest discomfort yesterday afternoon when she was out of bed and ambulating and another episode when she was eating. She was given sublingual nitroglycerin and started on nitroglycerin ointment. EKGs completed at that time did not reveal any evidence of acute ischemia. She was also given a GI cocktail. Patient denies having any chest pain throughout the night. The patient did have another episode of chest discomfort this morning. Repeat EKG shows t-wave inversions in anterior lateral leads. Echocardiogram completed revealed ejection fraction 55-60%. 05/18/2020 Patient examined at the bedside. No further episodes of chest pain. Hemoglobin remains stable. She has been resumed on plavix. Vital signs stable. PHYSICAL EXAM: VITAL SIGNS: Reviewed. GENERAL: Well-developed in no acute distress. HEENT: Head is normocephalic. Pupils are equal, round. Sclerae anicteric. Mucous membranes of the mouth are moist. Neck supple. No JVD or thyromegaly LUNGS: Respirations even and unlabored. Lungs essentially clear to auscultation bilaterally. HEART: Regular rate and rhythm. S1 and S2 heard. ABDOMEN: Soft. Nondistended. Nontender. EXTREMITIES: Normal range of motion. No clubbing or cyanosis. Peripheral pulses intact. No lower extremity edema NEUROLOGIC: Awake and alert. Oriented x 3. ASSESSMENT: Acute GI bleed Acute blood loss anemia Abnormal troponin, secondary to oxygen supply and demand mismatch, type II NE, due to acute blood loss anemia Coronary artery disease with previous CABG 4 and subsequent PCI Hypertension Hyperlipidemia Diabetes mellitus, type II Chest pain, with new T-wave inversions in anterior lateral leads PLAN: Continue current medications. Continue plavix per Dr. Polk. Does not need aspirin. Continue supportive care GI following. Patient to have outpatient polypectomy. Patient stable from a cardiac perspective. Follow up with Dr. Parish outpatient. Nurse practitioner note has been reviewed by physician. Signing provider agrees with the documented findings, assessment, and plan of care. Objective - Vital Signs Vital signs: Vital Signs Temp 97.2 F L 05/18/20 09:30 Pulse 81 05/18/20 09:30 Resp 16 05/18/20 09:30 BP 111/55 05/18/20 09:30 Pulse Ox 97 05/18/20 09:30 Intake & Output 05/17/20 05/18/20 05/18/20 18:59 06:59 18:59 Intake Total 1680 400 Output Total 600 Balance 1080 400 Weight 105 kg Intake: Intake, IV Titration 200 Amount IV Fluid Continuation 1, 200 000 ml @ 0 mls/hr IV .[facility] ONE Rx#:[id number] Oral 1680 200 Output: Urine 600 Other: Voiding Method Toilet # Voids 1 1 - Labs CBC & Chem 7: 05/18/20 10:41 05/17/20 07:32 Labs: Abnormal Lab Results - Last 24 Hours (Table) 05/17/20 05/17/20 05/18/20 Range/Units 17:05 20:04 06:06 RBC (3.80-5.40) m/uL Hgb (11.4-16.0) gm/dL Hct (34.0-46.0) % RDW (11.5-15.5) % POC Glucose (mg/dL) 133 H 150 H 233 H (75-99) mg/dL 05/18/20 Range/Units 10:41 RBC 2.82 L (3.80-5.40) m/uL Hgb 7.9 L (11.4-16.0) gm/dL Hct 24.3 L (34.0-46.0) % RDW 18.2 H (11.5-15.5) % POC Glucose (mg/dL) (75-99) mg/dL
[2020-05-18 11:58] LABS: Band Neutrophils % 1 %; Basophils # (M) 0.08 k/uL (0-0.2); Eosinophils # (M) 0.08 k/uL (0-0.7); Lymphocytes # (M) 2.54 k/uL (1.0-4.8); Metamyelocytes # (M) 0.08 k/uL (0); Metamyelocytes % 1 %; Monocytes # (M) 0.62 k/uL (0-1.0); Myelocytes # (M) 0.08 k/uL (0); Myelocytes % 1 %; Neutrophils % (M) 56 %; Nucleated Red Blood Cells 1 /100 WBC (0-0); Total Cells Counted 200; WBC 7.7 k/uL (3.8-10.6)
[2020-05-18 11:59] LABS: Polychromasia Present
[2020-05-18 12:00] LABS: Glucose,Whole Blood 200 mg/dL (75-99)
--- NOTE | 2020-05-18 13:06 | P.PN ---
Subjective Progress Note Date: 05/18/20 Principal diagnosis: Melena, anemia of acute blood loss Patient is seen in her room with no acute complaints. She denies any further signs or symptoms of GI bleeding. She is tolerating her diet. Plavix and aspirin restarted yesterday. Objective - Vital Signs Vital signs: Vital Signs Temp 99.3 F 05/18/20 04:00 Pulse 75 05/18/20 04:00 Resp 17 05/18/20 04:00 BP 115/54 05/18/20 04:00 Pulse Ox 97 05/18/20 04:00 Intake & Output 05/17/20 05/18/20 05/18/20 18:59 06:59 18:59 Intake Total 1680 400 Output Total 600 Balance 1080 400 Weight 105 kg Intake: Intake, IV Titration 200 Amount IV Fluid Continuation 1, 200 000 ml @ 0 mls/hr IV .[facility] ONE Rx#:[id number] Oral 1680 200 Output: Urine 600 Other: Voiding Method Toilet # Voids 1 1 - Exam On physical examination, patient appears comfortable in no apparent distress. HEAD: Normocephalic, atraumatic. EYES: No scleral icterus. No conjunctival injection. MOUTH: No lesions, tongue midline. NECK: Trachea midline, no gross abnormalities. ABDOMEN: Soft, obese. Bowel sounds are positive. No organomegaly. No guarding or rigidity. EXTREMITIES: No pedal edema. SKIN: No rashes, no jaundice. NEUROLOGIC: Alert and oriented x3. No focal deficits. - Labs CBC & Chem 7: 05/18/20 10:41 05/17/20 07:32 Labs: Abnormal Lab Results - Last 24 Hours (Table) 05/17/20 05/17/20 05/17/20 Range/Units 11:44 17:05 20:04 POC Glucose (mg/dL) 194 H 133 H 150 H (75-99) mg/dL 05/18/20 Range/Units 06:06 POC Glucose (mg/dL) 233 H (75-99) mg/dL Assessment and Plan (1) Melena Narrative/Plan: 65-year-old female with multiple medical comorbidities including coronary artery disease on Plavix therapy presents to the hospital with melena, coffee-ground emesis and shortness of breath worse with exacerbation. No history of EGD or prior peptic ulcer disease. Previously she had been on omeprazole therapy but this was stopped. She denies any NSAID use or use of Pepto-Bismol. EGD performed in evaluation on 05/16/2020 significant for nonbleeding antral ulcer with some erythema on the polyp suspicious for the source of bleeding. Biopsies taken with pathology pending the polyp was not removed in the setting of recent Plavix use. Current Visit: Yes Status: Acute Code(s): K92.1 - MELENA SNOMED Code(s): 0281259 (2) Anemia associated with acute blood loss Current Visit: Yes Status: Acute Code(s): D62 - ACUTE POSTHEMORRHAGIC ANEMIA SNOMED Code(s): 658356862 (3) GI bleed Current Visit: Yes Status: Acute Code(s): K92.2 - GASTROINTESTINAL HEMORRHAGE, UNSPECIFIED SNOMED Code(s): 18619848 Plan: Supportive care Okay to advance to cardiac diet Continue to monitor hemoglobin and hematocrit and transfuse as needed Okay to resume Plavix and aspirin therapy Patient should be on Protonix 40 mg IV twice daily Await pathology from biopsies of polyp Cardiology service reconsult to to see the patient Patient will likely need polypectomy when off of her antiplatelet therapy/Plavix for 5 days due to risks of bleeding with timing to be determined depending pathology from biopsies Thank you for allowing us to participate in the care of the patient
--- NOTE | 2020-05-18 16:17 | P.PN ---
Subjective Progress Note Date: 05/18/20 Patient is doing well today. She does not have any complaints. She denies any chest pain. No bowel movement since . Objective - Vital Signs Vital signs: Vital Signs Temp 98.2 F 05/18/20 12:00 Pulse 68 05/18/20 12:00 Resp 16 05/18/20 12:00 BP 108/55 05/18/20 12:00 Pulse Ox 98 05/18/20 12:00 Intake & Output 05/17/20 05/18/20 05/18/20 18:59 06:59 18:59 Intake Total 1680 400 420 Output Total 600 Balance 1080 400 420 Weight 105 kg Intake: Intake, IV Titration 200 Amount IV Fluid Continuation 1, 200 000 ml @ 0 mls/hr IV .[employer] ONE Rx#:[id number] Oral 1680 200 420 Output: Urine 600 Other: Voiding Method Toilet # Voids 1 1 2 - Exam General: The patient is awake and alert, in no distress Eye: there is normal conjunctiva bilaterally. Neck: The neck is supple, there is no JVD. Cardiovascular: Normal S1-S2, no S3-S4, no murmurs. Respiratory: Lungs clear to auscultation bilaterally Gastrointestinal: Abdomen is soft, nontender Musculoskeletal: There is no pedal edema. Neurological:. Speech is normal. Skin: Skin is warm and dry - Labs CBC & Chem 7: 05/18/20 10:41 05/17/20 07:32 Labs: Abnormal Lab Results - Last 24 Hours (Table) 05/17/20 05/17/20 05/18/20 Range/Units 17:05 20:04 06:06 RBC (3.80-5.40) m/uL Hgb (11.4-16.0) gm/dL Hct (34.0-46.0) % RDW (11.5-15.5) % Metamyelocytes # (Man) (0) k/uL Myelocytes # (Manual) (0) k/uL Nucleated RBCs (0-0) /100 WBC POC Glucose (mg/dL) 133 H 150 H 233 H (75-99) mg/dL 05/18/20 05/18/20 Range/Units 10:41 11:58 RBC 2.82 L (3.80-5.40) m/uL Hgb 7.9 L (11.4-16.0) gm/dL Hct 24.3 L (34.0-46.0) % RDW 18.2 H (11.5-15.5) % Metamyelocytes # (Man) 0.08 H (0) k/uL Myelocytes # (Manual) 0.08 H (0) k/uL Nucleated RBCs 1 H (0-0) /100 WBC POC Glucose (mg/dL) 200 H (75-99) mg/dL Assessment and Plan Assessment: This is a 65-year-old female with complex past medical history noted below presented to the emergency room with black stool. Patient was evaluated in the ER and admitted to the hospital for further management for medical problems noted below. 1. Upper GI bleed, status post EGD on 05/16 with evidence of a nonbleeding antral ulcer and a polyp suspicious for the source of bleeding. Biopsy taken pending pathology. Continue IV Protonix twice daily. Continue to hold aspirin and Plavix for now. We will discuss with GI plan for polypectomy maybe during this admission? 2. Episodes of angina, now resolved. 12-lead EKG showed no acute ischemic changes. Serial troponin were normal. Patient was seen and evaluated by cardiology. Echocardiogram showed preserved ejection fraction 55%. No further recommendations at this time. 3. Acute on chronic blood loss anemia, status post 1 unit of PRBC during this admission. Currently hemoglobin stable around 7.6 4. Coronary artery disease with history of CABG and stent placement, discontinue aspirin and continue with Plavix per cardiology recommendation 5. Essential hypertension, blood pressure well controlled. Continue current regimen 6. Type 2 diabetes, continue current dose of insulin Repeat CBC in the morning and discharged home if stable
[2020-05-18 16:47] LABS: Glucose,Whole Blood 167 mg/dL (75-99)
[2020-05-18] MEDS: NITROGLYCERIN SL TABS 0.4 MG TAB SUBLINGUAL PRN ×2 (18:43→18:49)
[2020-05-18] MEDS: PANTOPRAZOLE 40 MG TABLET PO SCH (18:57)
[2020-05-18] MEDS: PARoxetine 20 MG TAB PO SCH (18:57)
[2020-05-18 20:40] LABS: Glucose,Whole Blood 224 mg/dL (75-99)
[2020-05-18] MEDS: ATORVASTATIN 80 MG TAB PO SCH (21:47)
[2020-05-19] MEDS: NITROGLYCERIN SL TABS 0.4 MG TAB SUBLINGUAL PRN ×2 (02:54→02:59)
[2020-05-19 06:08] LABS: Glucose,Whole Blood 168 mg/dL (75-99)
[2020-05-19] MEDS: LEVOTHYROXINE 50 MCG TAB PO SCH (06:22)
[2020-05-19] MEDS: PANTOPRAZOLE 40 MG TABLET PO SCH ×2 (06:22→18:52)
[2020-05-19] MEDS: INSULIN PUMP MEAL BOLUS 1 UNIT MISC MISCELLANE SCH ×4 (06:23→21:00)
[2020-05-19] MEDS: NITROGLYCERIN OINT 1 INCH/GM PACKET TOPICAL SCH ×2 (09:12→18:51)
[2020-05-19] MEDS: CLOPIDOGREL 75 MG TAB PO SCH (09:13)
[2020-05-19] MEDS: METOPROLOL TARTRATE 50 MG TAB PO SCH ×2 (09:13→21:10)
[2020-05-19 10:44] LABS: Anisocytosis Slight; HCT 23.3 % (34.0-46.0); HGB 7.5 gm/dL (11.4-16.0); Hypochromasia Slight; MCHC 32.1 g/dL (31.0-37.0); MCV 87.3 fL (80.0-100.0); Mean Platelet Volume 7.7; Platelet Count 186 k/uL (150-450); Poikilocytosis Slight; RBC 2.67 m/uL (3.80-5.40); RDW 17.1 % (11.5-15.5); WBC 7.3 k/uL (3.8-10.6)
[2020-05-19 11:38] LABS: Eosinophils # (M) 0.15 k/uL (0-0.7); Lymphocytes # (M) 1.39 k/uL (1.0-4.8); Metamyelocytes # (M) 0.07 k/uL (0); Metamyelocytes % 1 %; Monocytes # (M) 0.22 k/uL (0-1.0); Myelocytes # (M) 0.07 k/uL (0); Myelocytes % 1 %; Neutrophils # (M) 5.48 k/uL (1.3-7.7); Neutrophils % (M) 75 %; Nucleated Red Blood Cells 0 /100 WBC (0-0); Total Cells Counted 200
[2020-05-19 11:39] LABS: Polychromasia Present
[2020-05-19 11:52] LABS: Glucose,Whole Blood 171 mg/dL (75-99)
--- NOTE | 2020-05-19 12:48 | P.PN ---
Subjective Progress Note Date: 05/19/20 Patient is still having episodes of angina one last night around 7 PM and 1 this morning at 3 AM. She is chest pain-free at the time of my evaluation. Repeat hemoglobin today was 7.5. No bowel movement or evidence of GI bleed. Objective - Vital Signs Vital signs: Vital Signs Temp 98.5 F 05/19/20 09:00 Pulse 68 05/19/20 09:00 Resp 18 05/19/20 09:00 BP 104/55 05/19/20 09:00 Pulse Ox 97 05/19/20 09:00 Intake & Output 05/18/20 05/19/20 05/19/20 18:59 06:59 18:59 Intake Total 545 240 Output Total 1140 Balance 545 -1140 240 Weight 96.5 kg Intake: Oral 545 240 Output: Urine 1140 Other: Voiding Method Bedpan Bedpan # Voids 2 1 - Exam General: The patient is awake and alert, in no distress Eye: there is normal conjunctiva bilaterally. Neck: The neck is supple, there is no JVD. Cardiovascular: Normal S1-S2, no S3-S4, no murmurs. Respiratory: Lungs clear to auscultation bilaterally Gastrointestinal: Abdomen is soft, nontender Musculoskeletal: There is no pedal edema. Neurological:. Speech is normal. Skin: Skin is warm and dry - Labs CBC & Chem 7: 05/19/20 08:50 05/17/20 07:32 Labs: Abnormal Lab Results - Last 24 Hours (Table) 05/16/20 05/18/20 05/18/20 Range/Units 01:14 16:44 20:39 RBC (3.80-5.40) m/uL Hgb (11.4-16.0) gm/dL Hct (34.0-46.0) % RDW (11.5-15.5) % Metamyelocytes # (Man) (0) k/uL Myelocytes # (Manual) (0) k/uL POC Glucose (mg/dL) 167 H 224 H (75-99) mg/dL Crossmatch See Detail 05/19/20 05/19/20 05/19/20 Range/Units 06:07 08:50 11:50 RBC 2.67 L (3.80-5.40) m/uL Hgb 7.5 L (11.4-16.0) gm/dL Hct 23.3 L (34.0-46.0) % RDW 17.1 H (11.5-15.5) % Metamyelocytes # (Man) 0.07 H (0) k/uL Myelocytes # (Manual) 0.07 H (0) k/uL POC Glucose (mg/dL) 168 H 171 H (75-99) mg/dL Crossmatch Assessment and Plan Assessment: This is a 65-year-old female with complex past medical history noted below presented to the emergency room with black stool. Patient was evaluated in the ER and admitted to the hospital for further management for medical problems noted below. 1. Upper GI bleed, status post EGD on 05/16 with evidence of a nonbleeding antral ulcer and a polyp suspicious for the source of bleeding. Biopsy taken pe nding pathology. Continue IV Protonix twice daily. Continue to hold aspirin and Plavix for now. We will discuss with GI plan for polypectomy maybe during this admission? 2. Episodes of angina, may be attributed to symptomatic anemia. A second units of blood ordered for today.. 12-lead EKG showed no acute ischemic changes. Serial troponin were normal. Patient was seen and evaluated by cardiology. Echocardiogram showed preserved ejection fraction 55%. May consider Imdur if angina persist 3. Acute on chronic blood loss anemia, status post 1 unit of PRBC during this admission. Currently hemoglobin stable around 7.6 4. Coronary artery disease with history of CABG and stent placement, discontinue aspirin and continue with Plavix per cardiology recommendation 5. Essential hypertension, blood pressure well controlled. Continue current regimen 6. Type 2 diabetes, continue current dose of insulin Repeat CBC in the morning and discharge home if stable
--- NOTE | 2020-05-19 12:57 | P.PN ---
Subjective Progress Note Date: 05/19/20 CHIEF COMPLAINT: Chest pain HISTORY OF PRESENT ILLNESS: 05/16/2020 This is a 65-year old female with a past medical history significant for hypertension, hyperlipidemia, diabetes mellitus, coronary artery disease with previous CABG and stent placement. Patient follows in the office with Dr. Parish. We have been asked to see the patient in consultation for chest pain. Patient examined this morning at the bedside. Patient states she has been having black stools since Tuesday. She reports that she was taking her Protonix but was told to wean herself off that by her primary care physician. She reports she last took her Protonix about a week ago. She is on aspirin and Plavix. Patient states she underwent a CABG 4 in 2015. She reports two of her grafts became blocked and a couple months after her CABG she underwent a stent placement. She reports feeling very short of breath with minimal exertion. She also reports feeling chest pain when she is short of breath and exerting herself. 05/17/2020 Patient is status post EGD revealing nonbleeding antral polyp with some erythema noted on the polyp suspicion for patient's source of bleeding. Biopsies were taken. However no polypectomy was performed due to patient being on Plavix. Patient examined this morning at the bedside. Patient reports having 3-4 episodes of chest discomfort yesterday afternoon when she was out of bed and ambulating and another episode when she was eating. She was given sublingual nitroglycerin and started on nitroglycerin ointment. EKGs completed at that time did not reveal any evidence of acute ischemia. She was also given a GI cocktail. Patient denies having any chest pain throughout the night. The patient did have another episode of chest discomfort this morning. Repeat EKG shows t-wave inversions in anterior lateral leads. Echocardiogram completed revealed ejection fraction 55-60%. 05/18/2020 Patient examined at the bedside. No further episodes of chest pain. Hemoglobin remains stable. She has been resumed on plavix. Vital signs stable. 05/19/2020 Patient examined this morning at the bedside. She reports an episode of chest pain at 1900 yesterday and again at 0300 this morning. She states both times she was just laying in bed when this occurred. She describes the pain as a sharp pain. The pain lasted for about 30 minutes each time. She ambulated this morning with Dr. Gamboa and began having some chest discomfort again. She remains on nitro paste. Hemoglobin 7.5. Patient did have t wave inversions on EKG over the weekend, which has normalized on EKG this morning. PHYSICAL EXAM: VITAL SIGNS: Reviewed. GENERAL: Well-developed in no acute distress. HEENT: Head is normocephalic. Pupils are equal, round. Sclerae anicteric. Mucous membranes of the mouth are moist. Neck supple. No JVD or thyromegaly LUNGS: Respirations even and unlabored. Lungs essentially clear to auscultation bilaterally. HEART: Regular rate and rhythm. S1 and S2 heard. ABDOMEN: Soft. Nondistended. Nontender. EXTREMITIES: Normal range of motion. No clubbing or cyanosis. Peripheral pulses intact. No lower extremity edema NEUROLOGIC: Awake and alert. Oriented x 3. ASSESSMENT: Acute GI bleed Acute blood loss anemia Abnormal troponin, secondary to oxygen supply and demand mismatch, type II [place], due to acute blood loss anemia Coronary artery disease with previous CABG 4 and subsequent PCI Hypertension Hyperlipidemia Diabetes mellitus, type II Chest pain, with new T-wave inversions in anterior lateral leads PLAN: Continue current medications. Continue plavix only per Dr. Polk. Continue supportive care GI following. Patient to have outpatient polypectomy. Patient having recurrent episodes of chest pain. Patient was evaluated by Dr. Gamboa this morning he discussed case with Dr. Parish. Will transfuse patient with 1 unit RBCs to reduce oxygen supply and demand mismatch and see if this improves her symptoms. If patients symptoms continue to persist, she may require cardiac cath. Nurse practitioner note has been reviewed by physician. Signing provider agrees with the documented findings, assessment, and plan of care. Objective - Vital Signs Vital signs: Vital Signs Temp 98.5 F 05/19/20 09:00 Pulse 68 05/19/20 09:00 Resp 18 05/19/20 09:00 BP 104/55 05/19/20 09:00 Pulse Ox 97 05/19/20 09:00 Intake & Output 05/18/20 05/19/20 05/19/20 18:59 06:59 18:59 Intake Total 545 240 Output Total 1140 Balance 545 -1140 240 Weight 96.5 kg Intake: Oral 545 240 Output: Urine 1140 Other: Voiding Method Bedpan Bedpan # Voids 2 1 - Labs CBC & Chem 7: 05/19/20 08:50 05/17/20 07:32 Labs: Abnormal Lab Results - Last 24 Hours (Table) 05/16/20 05/18/20 05/18/20 Range/Units 01:14 16:44 20:39 RBC (3.80-5.40) m/uL Hgb (11.4-16.0) gm/dL Hct (34.0-46.0) % RDW (11.5-15.5) % Metamyelocytes # (Man) (0) k/uL Myelocytes # (Manual) (0) k/uL POC Glucose (mg/dL) 167 H 224 H (75-99) mg/dL Crossmatch See Detail 05/19/20 05/19/20 05/19/20 Range/Units 06:07 08:50 11:50 RBC 2.67 L (3.80-5.40) m/uL Hgb 7.5 L (11.4-16.0) gm/dL Hct 23.3 L (34.0-46.0) % RDW 17.1 H (11.5-15.5) % Metamyelocytes # (Man) 0.07 H (0) k/uL Myelocytes # (Manual) 0.07 H (0) k/uL POC Glucose (mg/dL) 168 H 171 H (75-99) mg/dL Crossmatch
--- NOTE | 2020-05-19 15:04 | P.PN ---
Subjective Progress Note Date: 05/19/20 Principal diagnosis: Melena, anemia of acute blood loss Is is a 65-year-old white female who presented to the emergency department with complaints of black stools, and coffee-ground emesis. She also has a significant Cardiac history including bypass surgery and stents. She was currently on aspirin and Plavix. She underwent an EGD since admission which showed a nonbleeding antral polyp, with some erythema noted on the polyp suspicion is that it's a source of bleed, biopsy taken. There was no active bleeding or old blood noted. She has had no further black tarry stools. She denies any abdominal pain, nausea, or vomiting. She did have a couple episodes of chest pain throughout the night and was reproduced with ambulation today. Cardiology is following closely. Hemoglobin was stable at 7.5. She is going to receive another unit of packed red blood cells. If symptoms do not improve, cardiology may proceed with cardiac cath. Objective - Vital Signs Vital signs: Vital Signs Temp 99.0 F 05/19/20 11:45 Pulse 65 05/19/20 11:45 Resp 18 05/19/20 11:45 BP 120/58 05/19/20 11:45 Pulse Ox 96 05/19/20 11:45 Intake & Output 05/18/20 05/19/20 05/19/20 18:59 06:59 18:59 Intake Total 545 240 Output Total 1140 Balance 545 -1140 240 Weight 96.5 kg Intake: Oral 545 240 Output: Urine 1140 Other: Voiding Method Bedpan Bedpan # Voids 2 1 - Exam General appearance: The patient is alert, oriented, in no acute distress. HET: Head is normocephalic and atraumatic. Conjunctiva pink. Sclera anicteric. Neck: Supple without lymphadenopathy. Abdomen: Soft, nontender, nondistended with bowel sounds. No guarding or rigidity. Extremities: Normal skin color and turgor. No pedal edema Neurological: No focal deficits. Alert and oriented 3. - Labs CBC & Chem 7: 05/19/20 08:50 05/17/20 07:32 Labs: Abnormal Lab Results - Last 24 Hours (Table) 05/16/20 05/18/20 05/18/20 Range/Units 01:14 16:44 20:39 RBC (3.80-5.40) m/uL Hgb (11.4-16.0) gm/dL Hct (34.0-46.0) % RDW (11.5-15.5) % Metamyelocytes # (Man) (0) k/uL Myelocytes # (Manual) (0) k/uL POC Glucose (mg/dL) 167 H 224 H (75-99) mg/dL Crossmatch See Detail 05/19/20 05/19/20 05/19/20 Range/Units 06:07 08:50 11:50 RBC 2.67 L (3.80-5.40) m/uL Hgb 7.5 L (11.4-16.0) gm/dL Hct 23.3 L (34.0-46.0) % RDW 17.1 H (11.5-15.5) % Metamyelocytes # (Man) 0.07 H (0) k/uL Myelocytes # (Manual) 0.07 H (0) k/uL POC Glucose (mg/dL) 168 H 171 H (75-99) mg/dL Crossmatch Assessment and Plan (1) Melena Narrative/Plan: 65-year-old female with multiple medical comorbidities including coronary artery disease on Plavix therapy presents to the hospital with melena, coffee-ground emesis and shortness of breath worse with exacerbation. No history of EGD or prior peptic ulcer disease. Previously she had been on omeprazole therapy but this was stopped. She denies any NSAID use or use of Pepto-Bismol. EGD performed in evaluation on 05/16/2020 significant for nonbleeding antral ulcer with some erythema on the polyp suspicious for the source of bleeding. Biopsies taken with pathology pending the polyp was not removed in the setting of recent Plavix use. Supportive care Okay to advance to cardiac diet Continue to monitor hemoglobin and hematocrit and transfuse as needed Agree with transfusion of PRBC Okay to resume Plavix and aspirin therapy Patient should be on Protonix 40 mg IV twice daily Await pathology from biopsies of polyp Cardiology service when patient closely Patient has no active bleeding, no plans for further endoscopy. Await biopsy results, patient can follow-up for possible outpatient polypectomy if needed. Thank you for allowing us to participate in the care of the patient Dr. Klaudia Gamboa I agree with the dictator's note, documented as a scribe by Conchis Fernando. Current Visit: Yes Status: Acute Code(s): K92.1 - MELENA SNOMED Code(s): 7917914 (2) Anemia associated with acute blood loss Current Visit: Yes Status: Acute Code(s): D62 - ACUTE POSTHEMORRHAGIC ANEMIA SNOMED Code(s): 979051131 (3) GI bleed Current Visit: Yes Status: Acute Code(s): K92.2 - GASTROINTESTINAL HEMORRHAGE, UNSPECIFIED SNOMED Code(s): 53534896
[2020-05-19 16:35] LABS: Glucose,Whole Blood 259 mg/dL (75-99)
[2020-05-19] MEDS: PARoxetine 20 MG TAB PO SCH (18:52)
[2020-05-19 21:04] LABS: Glucose,Whole Blood 250 mg/dL (75-99)
[2020-05-19] MEDS: ATORVASTATIN 80 MG TAB PO SCH (21:10)
[2020-05-20] MEDS: NITROGLYCERIN OINT 1 INCH/GM PACKET TOPICAL SCH ×2 (01:38→09:14)
[2020-05-20 06:14] LABS: Glucose,Whole Blood 277 mg/dL (75-99)
[2020-05-20] MEDS: LEVOTHYROXINE 50 MCG TAB PO SCH (06:25)
[2020-05-20] MEDS: PANTOPRAZOLE 40 MG TABLET PO SCH ×2 (06:26→17:28)
[2020-05-20] MEDS: CLOPIDOGREL 75 MG TAB PO SCH (09:14)
[2020-05-20] MEDS: METOPROLOL TARTRATE 50 MG TAB PO SCH ×2 (09:14→20:43)
[2020-05-20] MEDS: INSULIN PUMP MEAL BOLUS 1 UNIT MISC MISCELLANE SCH ×4 (09:14→20:43)
[2020-05-20 10:19] LABS: Anisocytosis Slight; Basophils # (A) 0.1 k/uL (0-0.2); Basophils % (A) 1 %; Eosinophils # (A) 0.2 k/uL (0-0.7); Eosinophils % (A) 3 %; HCT 27.5 % (34.0-46.0); Hypochromasia Slight; Lymphocytes # (A) 1.9 k/uL (1.0-4.8); Lymphocytes % (A) 26 %; MCH 28.3 pg (25.0-35.0); MCHC 32.6 g/dL (31.0-37.0); MCV 86.7 fL (80.0-100.0); Mean Platelet Volume 7.7; Monocytes # (A) 0.4 k/uL (0-1.0); Monocytes % (A) 5 %; Neutrophils # (A) 4.7 k/uL (1.3-7.7); Neutrophils % (A) 64 %; Platelet Count 189 k/uL (150-450); Poikilocytosis Slight; RBC 3.18 m/uL (3.80-5.40); RDW 16.4 % (11.5-15.5); WBC 7.3 k/uL (3.8-10.6)
[2020-05-20 11:41] LABS: Glucose,Whole Blood 169 mg/dL (75-99)
--- NOTE | 2020-05-20 12:46 | P.PN ---
Subjective Progress Note Date: 05/20/20 Principal diagnosis: Melena, anemia of acute blood loss Is is a 65-year-old white female who presented to the emergency department with complaints of black stools, and coffee-ground emesis. She also has a significant Cardiac history including bypass surgery and stents. She was currently on aspirin and Plavix. She underwent an EGD since admission which showed a nonbleeding antral polyp, with some erythema noted on the polyp suspicion is that it's a source of bleed, biopsy taken. There was no active bleeding or old blood noted. She has had no further black tarry stools. She denies any abdominal pain, nausea, or vomiting. She had one unit of PRBC transfusion yesterday, her repeat hemoglobin is 9.0. She denies any further episodes of chest pain through the night or this morning. Her Nitropaste was removed. Cardiology continues to follow closely. Objective - Vital Signs Vital signs: Vital Signs Temp 98.7 F 05/20/20 08:20 Pulse 63 05/20/20 08:20 Resp 18 05/20/20 08:20 BP 113/54 05/20/20 08:20 Pulse Ox 96 05/20/20 08:20 Intake & Output 05/19/20 05/20/20 05/20/20 18:59 06:59 18:59 Intake Total 480 620 0 Balance 480 620 0 Weight 96.5 kg Intake: Oral 480 0 Blood Product 0 620 Rc Irr As1 Unit 0 310 [id number] Other: Voiding Method Toilet Toilet # Voids 2 - Exam General appearance: The patient is alert, oriented, in no acute distress. HET: Head is normocephalic and atraumatic. Conjunctiva pink. Sclera anicteric. Neck: Supple without lymphadenopathy. Abdomen: Soft, nontender, nondistended with bowel sounds. No guarding or rigidity. Extremities: Normal skin color and turgor. No pedal edema Neurological: No focal deficits. Alert and oriented 3. - Labs CBC & Chem 7: 05/20/20 08:56 05/17/20 07:32 Labs: Abnormal Lab Results - Last 24 Hours (Table) 05/16/20 05/19/20 05/19/20 Range/Units 01:14 16:33 21:03 RBC (3.80-5.40) m/uL Hgb (11.4-16.0) gm/dL Hct (34.0-46.0) % RDW (11.5-15.5) % POC Glucose (mg/dL) 259 H 250 H (75-99) mg/dL Crossmatch See Detail 05/20/20 05/20/20 05/20/20 Range/Units 06:13 08:56 11:39 RBC 3.18 L (3.80-5.40) m/uL Hgb 9.0 L D (11.4-16.0) gm/dL Hct 27.5 L (34.0-46.0) % RDW 16.4 H (11.5-15.5) % POC Glucose (mg/dL) 277 H 169 H (75-99) mg/dL Crossmatch Assessment and Plan (1) Melena Narrative/Plan: 65-year-old female with multiple medical comorbidities including coronary artery disease on Plavix therapy presents to the hospital with melena, coffee-ground emesis and shortness of breath worse with exacerbation. No history of EGD or prior peptic ulcer disease. Previously she had been on omeprazole therapy but this was stopped. She denies any NSAID use or use of Pepto-Bismol. EGD performed in evaluation on 05/16/2020 significant for nonbleeding antral ulcer with some erythema on the polyp suspicious for the source of bleeding. Biopsies taken with pathology pending the polyp was not removed in the setting of recent Plavix use. Current Visit: Yes Status: Acute Code(s): K92.1 - MELENA SNOMED Code(s): 2649366 (2) Anemia associated with acute blood loss Current Visit: Yes Status: Acute Code(s): D62 - ACUTE POSTHEMORRHAGIC ANEMIA SNOMED Code(s): 126928163 (3) GI bleed Narrative/Plan: Biopsy results completed things of hyperplastic polyp with acute and chronic inflammation. Discussed with the patient this is a benign finding, however could have recurring bleeding in the future. Recommend nonemergent removal of the polyp within the next 6 months, once the patient is stable per cardiology the patient will have to hold her Plavix prior to the procedure. Current Visit: Yes Status: Acute Code(s): K92.2 - GASTROINTESTINAL HEMORRHAGE, UNSPECIFIED SNOMED Code(s): 08987932 Plan: Supportive care Okay to advance to cardiac diet Continue to monitor hemoglobin and hematocrit and transfuse as needed Okay to resume Plavix, aspirin discontinued per cardiology Patient should be on Protonix 40 mg IV twice daily Await pathology from biopsies of polyp Cardiology service monitoring patient closely Patient has no active bleeding, no plans for further endoscopy. Await biopsy results, patient can follow-up for possible outpatient polypectomy if needed. Thank you for allowing us to participate in the care of the patient Dr. Klaudia Gamboa I agree with the dictator's note, documented as a scribe by Conchis Fernando.
[2020-05-20] MEDS: ISOSORBIDE MONONITRATE ER 60 MG TAB.ER.24H PO SCH (12:58)
[2020-05-20] MEDS: polyethylene glycoL 3350 17 GM POWD.PACK PO SCH (12:59)
--- NOTE | 2020-05-20 13:04 | P.PN ---
Subjective Progress Note Date: 05/20/20 Patient denies any episode of chest pain. She got a unit of blood transfusion yesterday and hemoglobin today is 9.0. Objective - Vital Signs Vital signs: Vital Signs Temp 98.7 F 05/20/20 08:20 Pulse 63 05/20/20 08:20 Resp 18 05/20/20 08:20 BP 113/54 05/20/20 08:20 Pulse Ox 96 05/20/20 08:20 Intake & Output 05/19/20 05/20/20 05/20/20 18:59 06:59 18:59 Intake Total 480 620 0 Balance 480 620 0 Weight 96.5 kg Intake: Oral 480 0 Blood Product 0 620 Rc Irr As1 Unit 0 310 [id number] Other: Voiding Method Toilet Toilet # Voids 2 - Exam General: The patient is awake and alert, in no distress Eye: there is normal conjunctiva bilaterally. Neck: The neck is supple, there is no JVD. Cardiovascular: Normal S1-S2, no S3-S4, no murmurs. Respiratory: Lungs clear to auscultation bilaterally Gastrointestinal: Abdomen is soft, nontender Musculoskeletal: There is no pedal edema. Neurological:. Speech is normal. Skin: Skin is warm and dry - Labs CBC & Chem 7: 05/20/20 08:56 05/17/20 07:32 Labs: Abnormal Lab Results - Last 24 Hours (Table) 05/16/20 05/19/20 05/19/20 Range/Units 01:14 16:33 21:03 RBC (3.80-5.40) m/uL Hgb (11.4-16.0) gm/dL Hct (34.0-46.0) % RDW (11.5-15.5) % POC Glucose (mg/dL) 259 H 250 H (75-99) mg/dL Crossmatch See Detail 05/20/20 05/20/20 05/20/20 Range/Units 06:13 08:56 11:39 RBC 3.18 L (3.80-5.40) m/uL Hgb 9.0 L D (11.4-16.0) gm/dL Hct 27.5 L (34.0-46.0) % RDW 16.4 H (11.5-15.5) % POC Glucose (mg/dL) 277 H 169 H (75-99) mg/dL Crossmatch Assessment and Plan Assessment: This is a 65-year-old female with complex past medical history noted below presented to the emergency room with black stool. Patient was evaluated in the ER and admitted to the hospital for further management for medical problems noted below. 1. Upper GI bleed, status post EGD on 05/16 with evidence of a nonbleeding antral ulcer and a polyp suspicious for the source of bleeding. Biopsy taken pending pathology. Continue Protonix twice daily. Resume Plavix. May consider polypectomy as an outpatient 2. Episodes of angina, may be attributed to symptomatic anemia. Improved after blood transfusion. Started on Imdur by cardiology. 12-lead EKG showed no acute ischemic changes. Serial troponin were normal. Patient was seen and evaluated by cardiology. Echocardiogram showed preserved ejection fraction 55%. 3. Acute on chronic blood loss anemia, status post 2 units of PRBC during this admission. Currently hemoglobin stable around 9 4. Coronary artery disease with history of CABG and stent placement, discontinue aspirin and continue with Plavix per cardiology recommendation 5. Essential hypertension, blood pressure well controlled. Continue current regimen 6. Type 2 diabetes, continue current dose of insulin Repeat CBC in the morning and discharge home if stable
--- NOTE | 2020-05-20 13:07 | P.PN ---
Subjective Progress Note Date: 05/20/20 CHIEF COMPLAINT: Chest pain HISTORY OF PRESENT ILLNESS: 05/16/2020 This is a 65-year old female with a past medical history significant for hypertension, hyperlipidemia, diabetes mellitus, coronary artery disease with previous CABG and stent placement. Patient follows in the office with Dr. Parish. We have been asked to see the patient in consultation for chest pain. Patient examined this morning at the bedside. Patient states she has been having black stools since Tuesday. She reports that she was taking her Protonix but was told to wean herself off that by her primary care physician. She reports she last took her Protonix about a week ago. She is on aspirin and Plavix. Patient states she underwent a CABG 4 in 2015. She reports two of her grafts became blocked and a couple months after her CABG she underwent a stent placement. She reports feeling very short of breath with minimal exertion. She also reports feeling chest pain when she is short of breath and exerting herself. 05/17/2020 Patient is status post EGD revealing nonbleeding antral polyp with some erythema noted on the polyp suspicion for patient's source of bleeding. Biopsies were taken. However no polypectomy was performed due to patient being on Plavix. Patient examined this morning at the bedside. Patient reports having 3-4 episodes of chest discomfort yesterday afternoon when she was out of bed and ambulating and another episode when she was eating. She was given sublingual nitroglycerin and started on nitroglycerin ointment. EKGs completed at that time did not reveal any evidence of acute ischemia. She was also given a GI cocktail. Patient denies having any chest pain throughout the night. The patient did have another episode of chest discomfort this morning. Repeat EKG shows t-wave inversions in anterior lateral leads. Echocardiogram completed revealed ejection fraction 55-60%. 05/18/2020 Patient examined at the bedside. No further episodes of chest pain. Hemoglobin remains stable. She has been resumed on plavix. Vital signs stable. 05/19/2020 Patient examined this morning at the bedside. She reports an episode of chest pain at 1900 yesterday and again at 0300 this morning. She states both times she was just laying in bed when this occurred. She describes the pain as a sharp pain. The pain lasted for about 30 minutes each time. She ambulated this morning with Dr. Gamboa and began having some chest discomfort again. She remains on nitro paste. Hemoglobin 7.5. Patient did have t wave inversions on EKG over the weekend, which has normalized on EKG this morning. 05/20/2020 Patient examined this morning at the bedside. She received 1 unit RBC transfusion yesterday. She denies any chest pain or pressure. She denies shortness of breath. Vital signs stable. Hemoglobin 9.0. PHYSICAL EXAM: VITAL SIGNS: Reviewed. GENERAL: Well-developed in no acute distress. HEENT: Head is normocephalic. Pupils are equal, round. Sclerae anicteric. Mucous membranes of the mouth are moist. Neck supple. No JVD or thyromegaly LUNGS: Respirations even and unlabored. Lungs essentially clear to auscultation bilaterally. HEART: Regular rate and rhythm. S1 and S2 heard. ABDOMEN: Soft. Nondistended. Nontender. EXTREMITIES: Normal range of motion. No clubbing or cyanosis. Peripheral pulses intact. No lower extremity edema NEUROLOGIC: Awake and alert. Oriented x 3. ASSESSMENT: Acute GI bleed Acute blood loss anemia Abnormal troponin, secondary to oxygen supply and demand mismatch, type II [place], due to acute blood loss anemia Coronary artery disease with previous CABG 4 and subsequent PCI Hypertension Hyperlipidemia Diabetes mellitus, type II Chest pain, with new T-wave inversions in anterior lateral leads PLAN: Continue current medications. Continue plavix only, no aspirin Continue supportive care GI following. Patient to have outpatient polypectomy. Discontinue nitro paste. Begin Imdur 60mg daily Monitor patient for another 24 hours. If she does not have any more episodes of chest pain, she may be discharged home tomorrow from a cardiac standpoint Nurse practitioner note has been reviewed by physician. Signing provider agrees with the documented findings, assessment, and plan of care. Objective - Vital Signs Vital signs: Vital Signs Temp 98.7 F 05/20/20 08:20 Pulse 63 05/20/20 08:20 Resp 18 05/20/20 08:20 BP 113/54 05/20/20 08:20 Pulse Ox 96 05/20/20 08:20 Intake & Output 05/19/20 05/20/20 05/20/20 18:59 06:59 18:59 Intake Total 480 620 0 Balance 480 620 0 Weight 96.5 kg Intake: Oral 480 0 Blood Product 0 620 Rc Irr As1 Unit 0 310 [id number] Other: Voiding Method Toilet Toilet # Voids 2 - Labs CBC & Chem 7: 05/20/20 08:56 05/17/20 07:32 Labs: Abnormal Lab Results - Last 24 Hours (Table) 05/16/20 05/19/20 05/19/20 Range/Units 01:14 16:33 21:03 RBC (3.80-5.40) m/uL Hgb (11.4-16.0) gm/dL Hct (34.0-46.0) % RDW (11.5-15.5) % POC Glucose (mg/dL) 259 H 250 H (75-99) mg/dL Crossmatch See Detail 05/20/20 05/20/20 05/20/20 Range/Units 06:13 08:56 11:39 RBC 3.18 L (3.80-5.40) m/uL Hgb 9.0 L D (11.4-16.0) gm/dL Hct 27.5 L (34.0-46.0) % RDW 16.4 H (11.5-15.5) % POC Glucose (mg/dL) 277 H 169 H (75-99) mg/dL Crossmatch
[2020-05-20 17:15] LABS: Glucose,Whole Blood 240 mg/dL (75-99)
[2020-05-20] MEDS: PARoxetine 20 MG TAB PO SCH (17:28)
[2020-05-20 20:19] LABS: Glucose,Whole Blood 195 mg/dL (75-99)
[2020-05-20] MEDS: ATORVASTATIN 80 MG TAB PO SCH (20:43)
[2020-05-21 06:09] LABS: Glucose,Whole Blood 165 mg/dL (75-99)
[2020-05-21] MEDS: LEVOTHYROXINE 50 MCG TAB PO SCH (06:33)
[2020-05-21] MEDS: INSULIN PUMP MEAL BOLUS 1 UNIT MISC MISCELLANE SCH ×2 (06:33→12:23)
[2020-05-21] MEDS: PANTOPRAZOLE 40 MG TABLET PO SCH (06:33)
[2020-05-21 07:51] LABS: Basophils % (A) 1 %; Eosinophils # (A) 0.2 k/uL (0-0.7); Eosinophils % (A) 4 %; HCT 29.1 % (34.0-46.0); HGB 9.4 gm/dL (11.4-16.0); Hypochromasia Slight; Lymphocytes # (A) 1.9 k/uL (1.0-4.8); Lymphocytes % (A) 27 %; MCH 28.3 pg (25.0-35.0); MCHC 32.3 g/dL (31.0-37.0); MCV 87.7 fL (80.0-100.0); Mean Platelet Volume 7.8; Monocytes # (A) 0.4 k/uL (0-1.0); Monocytes % (A) 6 %; Neutrophils # (A) 4.3 k/uL (1.3-7.7); Neutrophils % (A) 61 %; Platelet Count 197 k/uL (150-450); Poikilocytosis Slight; RBC 3.32 m/uL (3.80-5.40); RDW 15.9 % (11.5-15.5)
[2020-05-21] MEDS: METOPROLOL TARTRATE 50 MG TAB PO SCH (08:51)
[2020-05-21] MEDS: CLOPIDOGREL 75 MG TAB PO SCH (08:51)
[2020-05-21] MEDS: ISOSORBIDE MONONITRATE ER 60 MG TAB.ER.24H PO SCH (08:51)
[2020-05-21] MEDS: polyethylene glycoL 3350 17 GM POWD.PACK PO SCH (09:24)
[2020-05-21 09:48] LABS: Polychromasia Present
--- NOTE | 2020-05-21 10:39 | P.DS ---
Providers Date of admission: 05/16/20 01:46 Expected date of discharge: 05/21/20 Attending physician: Esmer Kang MD Consults: 05/16/20 01:15 Consult Physician Routine Consulting Provider: Madelin Gamboa Consult Reason/Comments: GI bleed Do you want consulting provider notified?: Yes 05/16/20 19:17 Consult Physician Routine Consulting Provider: Matteo Polk Consult Reason/Comments: continued chest pain after transfusion Do you want consulting provider notified?: Yes, Notify in am Primary care physician: [facility] Course: Discharge Diagnosis: #Upper GI bleed, status post EGD on 05/16 with evidence of a nonbleeding antral ulcer and a polyp suspicious for the source of bleeding] #Episodes of angina, may be attributed to symptomatic anemia. #Acute on chronic blood loss anemia #Coronary artery disease with history of CABG and stent placement #Essential hypertension, blood pressure well controlled #Type 2 diabetes, Hospital Course: This is a 65-year-old female with complex past medical history noted below presented to the emergency room with black stool. Patient was evaluated in the ER and admitted to the hospital for further management for medical problems noted below. 1. Upper GI bleed, status post EGD on 05/16 with evidence of a nonbleeding antral ulcer and a polyp suspicious for the source of bleeding. Biopsy taken pending pathology. Continue Protonix twice daily. Resume Plavix. Follow up with GI outpatient for polypectomy. H/H stable. 2. Episodes of angina, may be attributed to symptomatic anemia. Improved after blood transfusion. Started on Imdur by cardiology. 12-lead EKG showed no acute ischemic changes. Serial troponin were normal. Patient was seen and evaluated by cardiology. Echocardiogram showed preserved ejection fraction 55%. Patient deemed stable for discharge by cardiology 3. Acute on chronic blood loss anemia, status post 2 units of PRBC during this admission. Currently hemoglobin stable around 9 4. Coronary artery disease with history of CABG and stent placement, dis continue aspirin and continue with Plavix per cardiology recommendation 5. Essential hypertension, blood pressure well controlled. Continue current regimen 6. Type 2 diabetes, continue current dose of insulin Patient deemed stable for discharge home. Patient was looking forward to going home. Patient seen and examined at bedside. Vital signs reviewed and stable. General: [non toxic], [no distress], [appears at stated age] Derm: [warm], [dry] Head: [atraumatic], [normocephalic], [symmetric] Eyes: [EOMI], [no lid lag], [anicteric sclera] Mouth: [no lip lesion], [mucus membranes moist] Cardiovascular: [S1S2 reg], [no murmur], [positive posterior tibial pulse bilateral], Lungs: [CTA bilateral], [no rhonchi, no rales] , [no accessory muscle use] Abdominal: [soft], [ nontender to palpation], [no guarding], [no appreciable organomegaly] Ext: [no gross muscle atrophy], [no edema], [no contractures] Neuro: [ CN II-XI grossly intact], [no focal neuro deficits] Psych: [Alert], [oriented], [appropriate affect] A total of [32] minutes of time were spent preparing this complex discharge summary . Patient Condition at Discharge: Serious Plan - Discharge Summary Discharge Rx Participant: No New Discharge Prescriptions: New Isosorbide Mononitrate ER [Imdur] 60 mg PO DAILY #30 tab.er.24h Pantoprazole [Protonix] 40 mg PO AC-BID #60 tablet.dr Continue INSULIN ASPART (NovoLOG) [NovoLOG (formulary)] 0.01 units SQ-PUMP CONTINUOUS Levothyroxine Sodium [Synthroid] 50 mcg PO QAM Albuterol Sulfate [Ventolin HFA] 2 puff INHALATION RT-QID PRN PRN Reason: Shortness Of Breath Atorvastatin [Lipitor] 80 mg PO HS #30 tab Metoprolol Tartrate [Lopressor] 50 mg PO BID Clopidogrel [Plavix] 75 mg PO W/BRKFST PARoxetine [Paxil] 20 mg PO W/SUPPER Ubidecarenone [Co Q-10] 300 mg PO DAILY Cholecalciferol [Vitamin D3 (25 Mcg = 1000 Iu)] 1,000 unit PO DAILY Discontinued Aspirin EC [Ecotrin] 325 mg PO QAM Discharge Medication List Albuterol Sulfate [Ventolin HFA] 2 puff INHALATION RT-QID PRN 03/20/14 [History] INSULIN ASPART (NovoLOG) [NovoLOG (formulary)] 0.01 units SQ-PUMP CONTINUOUS 03/20/14 [History] Levothyroxine Sodium [Synthroid] 50 mcg PO QAM 03/20/14 [History] Atorvastatin [Lipitor] 80 mg PO HS #30 tab 09/13/15 [Rx] Clopidogrel [Plavix] 75 mg PO W/BRKFST 11/20/15 [History] Metoprolol Tartrate [Lopressor] 50 mg PO BID 11/20/15 [History] PARoxetine [Paxil] 20 mg PO W/SUPPER 11/20/15 [History] Cholecalciferol [Vitamin D3 (25 Mcg = 1000 Iu)] 1,000 unit PO DAILY 05/16/20 [History] Ubidecarenone [Co Q-10] 300 mg PO DAILY 05/16/20 [History] Isosorbide Mononitrate ER [Imdur] 60 mg PO DAILY #30 tab.er.24h 05/21/20 [Rx] Pantoprazole [Protonix] 40 mg PO AC-BID #60 tablet. 05/21/20 [Rx] Follow up Appointment(s)/Referral(s): Nathanael Zabala MD [Primary Care Provider] - 1-2 days Ryder Biggs MD [STAFF PHYSICIAN] - 4 Weeks (1-2 weeks) Discharge Disposition: HOME SELF-CARE
--- NOTE | 2020-05-21 11:48 | P.PN ---
Subjective Progress Note Date: 05/21/20 Principal diagnosis: Melena, anemia of acute blood loss Is is a 65-year-old white female who presented to the emergency department with complaints of black stools, and coffee-ground emesis. She also has a significant Cardiac history including bypass surgery and stents. She was currently on aspirin and Plavix. She underwent an EGD since admission which showed a nonbleeding antral polyp, with some erythema noted on the polyp suspicion is that it's a source of bleed, biopsy taken. There was no active bleeding or old blood noted. She has had no further black tarry stools, she had a normal brown colored bowel movement yesterday. She denies any abdominal pain, nausea, or vomiting. She is status post 2 units of PRBC transfusion for admission, her repeat hemoglobin today was 9.4. She denies any further episodes of chest pain through the night or this morning. Objective - Vital Signs Vital signs: Vital Signs Temp 98.9 F 05/21/20 08:00 Pulse 67 05/21/20 08:00 Resp 18 05/21/20 08:00 BP 117/56 05/21/20 08:00 Pulse Ox 98 05/21/20 08:00 Intake & Output 05/20/20 05/21/20 05/21/20 18:59 06:59 18:59 Intake Total 600 540 240 Output Total 150 150 Balance 450 540 90 Weight 102 kg Intake: Oral 600 540 240 Output: Urine 150 150 Other: Voiding Method Toilet Toilet # Voids 1 2 1 - Exam General appearance: The patient is alert, oriented, in no acute distress. HET: Head is normocephalic and atraumatic. Conjunctiva pink. Sclera anicteric. Neck: Supple without lymphadenopathy. Abdomen: Soft, nontender, nondistended with bowel sounds. No guarding or rigidity. Extremities: Normal skin color and turgor. No pedal edema Neurological: No focal deficits. Alert and oriented 3. - Labs CBC & Chem 7: 05/21/20 07:19 05/17/20 07:32 Labs: Abnormal Lab Results - Last 24 Hours (Table) 05/20/20 05/20/20 05/20/20 Range/Units 08:56 11:39 17:03 RBC 3.18 L (3.80-5.40) m/uL Hgb 9.0 L D (11.4-16.0) gm/dL Hct 27.5 L (34.0-46.0) % RDW 16.4 H (11.5-15.5) % POC Glucose (mg/dL) 169 H 240 H (75-99) mg/dL 05/20/20 05/21/20 05/21/20 Range/Units 20:13 06:06 07:19 RBC 3.32 L (3.80-5.40) m/uL Hgb 9.4 L (11.4-16.0) gm/dL Hct 29.1 L (34.0-46.0) % RDW 15.9 H (11.5-15.5) % POC Glucose (mg/dL) 195 H 165 H (75-99) mg/dL Assessment and Plan (1) Melena Narrative/Plan: 65-year-old female with multiple medical comorbidities including coronary artery disease on Plavix therapy presents to the hospital with melena, coffee-ground emesis and shortness of breath worse with exacerbation. No history of EGD or prior peptic ulcer disease. Previously she had been on omeprazole therapy but this was stopped. She denies any NSAID use or use of Pepto-Bismol. EGD performed in evaluation on 05/16/2020 significant for nonbleeding antral ulcer with some erythema on the polyp suspicious for the source of bleeding. Biopsies taken with pathology pending the polyp was not removed in the setting of recent Plavix use. Current Visit: Yes Status: Acute Code(s): K92.1 - MELENA SNOMED Code(s): 5338080 (2) Anemia associated with acute blood loss Current Visit: Yes Status: Acute Code(s): D62 - ACUTE POSTHEMORRHAGIC ANEMIA SNOMED Code(s): 464370038 (3) GI bleed Narrative/Plan: Biopsy results completed things of hyperplastic polyp with acute and chronic inflammation. Discussed with the patient this is a benign finding, however could have recurring bleeding in the future. Recommend nonemergent removal of the polyp within the next 6 months, once the patient is stable per cardiology the patient will have to hold her Plavix prior to the procedure. He should has had no further evidence of GI bleed. Current Visit: Yes Status: Acute Code(s): K92.2 - GASTROINTESTINAL HEMORRHAGE, UNSPECIFIED SNOMED Code(s): 84170095 Plan: Supportive care Okay to advance to cardiac diet Continue to monitor hemoglobin and hematocrit and transfuse as needed Okay to resume Plavix, aspirin discontinued per cardiology Patient should be on Protonix 40 mg IV twice daily Cardiology service monitoring patient closely Patient has no active bleeding, no plans for further endoscopy. She can can follow-up for polypectomy in 4 weeks. Thank you for allowing us to participate in the care of the patient, we will be on standby. His do not hesitate to contact us for any further needs. Dr. Klaudia Gamboa I agree with the dictator's note, documented as a scribe by Conchis Fernando.
[2020-05-21 12:02] LABS: Glucose,Whole Blood 146 mg/dL (75-99)
[2020-05-21 12:38] VITALS: BP 112/56; PULSE 61; RESP 17; TEMP 98.1
--- NOTE | 2020-05-21 12:57 | P.PN ---
Subjective Progress Note Date: 05/21/20 CHIEF COMPLAINT: Chest pain HISTORY OF PRESENT ILLNESS: 05/16/2020 This is a 65-year old female with a past medical history significant for hypertension, hyperlipidemia, diabetes mellitus, coronary artery disease with previous CABG and stent placement. Patient follows in the office with Dr. Parish. We have been asked to see the patient in consultation for chest pain. Patient examined this morning at the bedside. Patient states she has been having black stools since Tuesday. She reports that she was taking her Protonix but was told to wean herself off that by her primary care physician. She reports she last took her Protonix about a week ago. She is on aspirin and Plavix. Patient states she underwent a CABG 4 in 2015. She reports two of her grafts became blocked and a couple months after her CABG she underwent a stent placement. She reports feeling very short of breath with minimal exertion. She also reports feeling chest pain when she is short of breath and exerting herself. 05/17/2020 Patient is status post EGD revealing nonbleeding antral polyp with some erythema noted on the polyp suspicion for patient's source of bleeding. Biopsies were taken. However no polypectomy was performed due to patient being on Plavix. Patient examined this morning at the bedside. Patient reports having 3-4 episodes of chest discomfort yesterday afternoon when she was out of bed and ambulating and another episode when she was eating. She was given sublingual nitroglycerin and started on nitroglycerin ointment. EKGs completed at that time did not reveal any evidence of acute ischemia. She was also given a GI cocktail. Patient denies having any chest pain throughout the night. The patient did have another episode of chest discomfort this morning. Repeat EKG shows t-wave inversions in anterior lateral leads. Echocardiogram completed revealed ejection fraction 55-60%. 05/18/2020 Patient examined at the bedside. No further episodes of chest pain. Hemoglobin remains stable. She has been resumed on plavix. Vital signs stable. 05/19/2020 Patient examined this morning at the bedside. She reports an episode of chest pain at 1900 yesterday and again at 0300 this morning. She states both times she was just laying in bed when this occurred. She describes the pain as a sharp pain. The pain lasted for about 30 minutes each time. She ambulated this morning with Dr. Gamboa and began having some chest discomfort again. She remains on nitro paste. Hemoglobin 7.5. Patient did have t wave inversions on EKG over the weekend, which has normalized on EKG this morning. 05/20/2020 Patient examined this morning at the bedside. She received 1 unit RBC transfusion yesterday. She denies any chest pain or pressure. She denies shortness of breath. Vital signs stable. Hemoglobin 9.0. 05/21/2020 Patient examined at bedside. Patient denies any further episodes of chest pain or pressure. She denies shortness of breath. She has been up ambulating in the room. Vital signs are stable. She is hoping to be discharged home today. PHYSICAL EXAM: VITAL SIGNS: Reviewed. GENERAL: Well-developed in no acute distress. HEENT: Head is normocephalic. Pupils are equal, round. Sclerae anicteric. Mucous membranes of the mouth are moist. Neck supple. No JVD or thyromegaly LUNGS: Respirations even and unlabored. Lungs essentially clear to auscultation bilaterally. HEART: Regular rate and rhythm. S1 and S2 heard. ABDOMEN: Soft. Nondistended. Nontender. EXTREMITIES: Normal range of motion. No clubbing or cyanosis. Peripheral pulses intact. No lower extremity edema NEUROLOGIC: Awake and alert. Oriented x 3. ASSESSMENT: Acute GI bleed Acute blood loss anemia Abnormal troponin, secondary to oxygen supply and demand mismatch, type II [place], due to acute blood loss anemia Coronary artery disease with previous CABG 4 and subsequent PCI Hypertension Hyperlipidemia Diabetes mellitus, type II Chest pain, with new T-wave inversions in anterior lateral leads PLAN: Continue current cardiac medications. Patient is stable for discharge from a cardiac perspective. She is to follow up outpatient with Dr. Parish Nurse practitioner note has been reviewed by physician. Signing provider agrees with the documented findings, assessment, and plan of care. Objective - Vital Signs Vital signs: Vital Signs Temp 98.1 F 05/21/20 12:00 Pulse 61 05/21/20 12:00 Resp 17 05/21/20 12:00 BP 112/56 05/21/20 12:00 Pulse Ox 97 05/21/20 12:00 Intake & Output 05/20/20 05/21/20 05/21/20 18:59 06:59 18:59 Intake Total 600 540 240 Output Total 150 150 Balance 450 540 90 Weight 102 kg Intake: Oral 600 540 240 Output: Urine 150 150 Other: Voiding Method Toilet Toilet # Voids 1 2 1 - Labs CBC & Chem 7: 05/21/20 07:19 05/17/20 07:32 Labs: Abnormal Lab Results - Last 24 Hours (Table) 05/20/20 05/20/20 05/21/20 Range/Units 17:03 20:13 06:06 RBC (3.80-5.40) m/uL Hgb (11.4-16.0) gm/dL Hct (34.0-46.0) % RDW (11.5-15.5) % POC Glucose (mg/dL) 240 H 195 H 165 H (75-99) mg/dL 05/21/20 05/21/20 Range/Units 07:19 12:00 RBC 3.32 L (3.80-5.40) m/uL Hgb 9.4 L (11.4-16.0) gm/dL Hct 29.1 L (34.0-46.0) % RDW 15.9 H (11.5-15.5) % POC Glucose (mg/dL) 146 H (75-99) mg/dL
== END 2020-05-21 12:47 | disposition home or self-care (01) | DRG 393 ==
LOC: EC 23:36 → 3SCARD 05-16 01:46
PROVIDERS: ADMIT Internal Medicine; ATTEND Internal Medicine
PROC: 30233N1 Transfusion of Nonautologous Red Blood Cells into Peripheral Vein, Percutaneous Approach (ICD-10-PCS; 2020-05-16)
PROC: 0DB78ZX Excision of Stomach, Pylorus, Via Natural or Artificial Opening Endoscopic, Diagnostic (ICD-10-PCS; principal; 2020-05-16 07:30)
DX: K31.7 Polyp of stomach and duodenum (principal); I21.A1 Myocardial infarction type 2; D62 Acute posthemorrhagic anemia; I25.110 Atherosclerotic heart disease of native coronary artery with unstable angina pectoris; I45.2 Bifascicular block; E78.5 Hyperlipidemia, unspecified; E11.9 Type 2 diabetes mellitus without complications; E03.9 Hypothyroidism, unspecified; E83.42 Hypomagnesemia; J45.909 Unspecified asthma, uncomplicated; K25.7 Chronic gastric ulcer without hemorrhage or perforation; I10 Essential (primary) hypertension; Z96.1 Presence of intraocular lens; Z96.41 Presence of insulin pump (external) (internal); I25.2 Old myocardial infarction; Z79.02 Long term (current) use of antithrombotics/antiplatelets; Z79.4 Long term (current) use of insulin; Z79.82 Long term (current) use of aspirin; Z79.890 Hormone replacement therapy; Z79.899 Other long term (current) drug therapy; Z80.49 Family history of malignant neoplasm of other genital organs; Z82.49 Family history of ischemic heart disease and other diseases of the circulatory system; Z85.3 Personal history of malignant neoplasm of breast; Z86.711 Personal history of pulmonary embolism; Z87.442 Personal history of urinary calculi; Z90.710 Acquired absence of both cervix and uterus; Z95.1 Presence of aortocoronary bypass graft; Z95.5 Presence of coronary angioplasty implant and graft; Z88.8 Allergy status to other drugs, medicaments and biological substances; Z91.09 Other allergy status, other than to drugs and biological substances; Z98.42 Cataract extraction status, left eye; Z98.41 Cataract extraction status, right eye; Z80.8 Family history of malignant neoplasm of other organs or systems
CPT/HCPCS: 36415; 43239; 71046; 76705; 80048; 80053; 82272; 83036; 83690; 83735; 83880; 84100; 84484; 85025; 85027; 85379; 85610; 85730; 86850; 86900; 86901; 86920; 88305; 88342; 93005; 93306; 94760; 96365; 96375; 99285

== ENCOUNTER → 2020-06-11 | Outpatient (CLI) | payer OTHER ==
[2020-06-11 15:03] LABS: Anisocytosis Slight; Basophils # (A) 0.1 k/uL (0-0.2); Basophils % (A) 1 %; Eosinophils # (A) 0.2 k/uL (0-0.7); Eosinophils % (A) 3 %; HCT 31.7 % (34.0-46.0); HGB 9.5 gm/dL (11.4-16.0); Hypochromasia Marked; Lymphocytes # (A) 2.1 k/uL (1.0-4.8); Lymphocytes % (A) 27 %; MCH 23.4 pg (25.0-35.0); MCHC 29.9 g/dL (31.0-37.0); Microcytosis Slight; Monocytes # (A) 0.4 k/uL (0-1.0); Monocytes % (A) 5 %; Neutrophils # (A) 4.9 k/uL (1.3-7.7); Neutrophils % (A) 62 %; Platelet Count 315 k/uL (150-450); Poikilocytosis Marked; RBC 4.06 m/uL (3.80-5.40); RDW 16.7 % (11.5-15.5); WBC 7.8 k/uL (3.8-10.6)
[2020-06-11 15:16] LABS: MCV 78.2 fL (80.0-100.0)
[2020-06-11 21:17] LABS: % Iron Saturation 4.78 (12.00-45.00)
== END | disposition home or self-care (01) ==
LOC: LABWHC1 13:46
PROVIDERS: ATTEND Internal Medicine
DX: D64.9 Anemia, unspecified (principal)
CPT/HCPCS: 36415; 83540; 83550; 85025

== ENCOUNTER 2020-07-23 07:03 | Day surgery (SDC) | payer OTHER, MEDICARE ==
[2020-07-18 09:24] VITALS: BMI 40.8
[~2020-07-23 07:03] MED LIST: LACTATED RINGERS 1,000 ML IV SCH; LIDOCAINE 1% (10MG/ML) FOR IV START INTRADERMA PRN
[2020-07-23 07:26] VITALS: TEMP 97
[2020-07-23] MEDS ORDERED: MIDAZOLAM 2 MG/2 ML VIAL ONE (07:41)
[2020-07-23] MEDS ORDERED: PROPOFOL 10 MG/ML 20 ML VIAL IV ONE (07:41)
[2020-07-23] MEDS ORDERED: LIDOCAINE 1% INJ 10MG/ML (20 ML MDV) ONE (07:41)
--- NOTE | 2020-07-23 08:07 | P.PCN ---
Date of Procedure: 07/23/20 Procedure(s) Performed: Brief history: Patient is a pleasant 65-year-old white female] scheduled for an elective upper endoscopy as well as colonoscopy as a part of evaluation of Iron deficiency anemia. She was admitted hospital with acute upper GI bleed and had an upper endoscopy done by Dr. Biggs 2 months ago and was noted to have a 1 cm pedunculated gastric antral polyp with oozing. Biopsies revealed hyperplastic polyp. She is scheduled for an upper endoscopy for polypectomy as well as col onoscopy to evaluate further. Procedure performed: Esophagogastroduodenoscopy with snare polypectomy and Endo Clip placement Colonoscopy Preoperative diagnosis: Iron deficiency anemia and follow-up of gastric polyp Anesthesia: MAC Procedure: After informed consent was obtained from the patient was brought into the endoscopy unit and IV sedation was administered by anesthesia under continuous monitoring. Initially upper endoscopy was done. The Olympus GF 160 video endoscope was inserted inserted into the mouth and esophagus intubated without any difficulty and was gradually advanced into the stomach and duodenum and carefully examined. The bulb and second part of the duodenum appeared normal. The scope was then withdrawn into the stomach adequately insufflated with air and upon careful examination the antrum had mild nodular gastritis. Also there was a 1.5 cm pedunculated polyp that was removed by piecemeal snare polypectomy and complete polypectomy was accomplished. Following this an Endo Clip was placed to prevent post-polypectomy bleed. Mucosa of the body, cardia and fundus appeared normal. The scope was then withdrawn into the esophagus. The GE junction was located at 40 cm to the incisors. It appeared regular with no erythema erosions or ulcerations. Rest of the esophagus appeared normal. Patient tolerated the procedure well. At this time the patient continued to remain sedation. Initial digital rectal examination was normal. Olympus CF 160 video colonoscope was then inserted into the rectum and gradually advanced to the cecum without any difficulty. Careful examination was performed as the scope was gradually being withdrawn. The prep was excellent. The cecum, ascending colon, transverse colon, descending colon, sigmoid colon and rectum appeared normal. Diffuse scattered diverticulosis noted. Retroflexion was performed in the rectum and no lesions were noted. Patient tolerated the procedure well. Impression: 1. Upper endoscopy revealed a 1.5 cm pedunculated gastric antral polyp status post piecemeal snare polypectomy followed by Endo Clip placement. Mild nodular gastritis noted. 2. Colonoscopy revealed diffuse scattered diverticulosis but no evidence of colorectal neoplasia Recommendations: Findings of this examination were discussed with the patient as well as her family. She was advised to follow with the biopsy results. She'll be seen in office in one to 2 weeks.
[2020-07-23 08:59] VITALS: BP 111/66; PULSE 50; RESP 18
== END 2020-07-23 09:19 | disposition home or self-care (01) ==
LOC: ORWHC2ENDO 07:03
PROVIDERS: ATTEND Internal Medicine Gastroenterology
DX: K31.7 Polyp of stomach and duodenum (principal); K57.30 Diverticulosis of large intestine without perforation or abscess without bleeding; K21.9 Gastro-esophageal reflux disease without esophagitis; D50.9 Iron deficiency anemia, unspecified; I25.10 Atherosclerotic heart disease of native coronary artery without angina pectoris; I10 Essential (primary) hypertension; E78.5 Hyperlipidemia, unspecified; Z86.718 Personal history of other venous thrombosis and embolism; I25.2 Old myocardial infarction; J45.909 Unspecified asthma, uncomplicated; F32.9 Major depressive disorder, single episode, unspecified; Z79.890 Hormone replacement therapy; Z79.02 Long term (current) use of antithrombotics/antiplatelets; Z79.82 Long term (current) use of aspirin; Z79.899 Other long term (current) drug therapy; Z88.8 Allergy status to other drugs, medicaments and biological substances
CPT/HCPCS: 43239; 43251; 45378; 88305; 88342

== ENCOUNTER → 2021-01-16 | Outpatient (CLI) | payer OTHER, MEDICARE ==
--- NOTE | 2021-01-20 08:17 | MM ---
Reason for exam: screening (asymptomatic). Last mammogram was performed 1 year and 11 months ago. History: Patient is postmenopausal, had previous chest radiation therapy at age 44, and has history of breast cancer at age 43. Family history of breast cancer in sister at age 60, breast cancer in maternal aunt, and breast cancer in paternal aunt at age 40. Benign US left guided mammotome of the left breast, May 12, 2007. Benign left mammotome panel of the left breast, December 20, 2005. Excisional biopsy of the left breast, April 08, 2000. Stereotactic core biopsy of the left breast, March 15, 2000. Stereotactic core biopsy of the left breast, March 15, 2000. Radiation therapy of the left breast, 1999. Benign ultrasound-guided core biopsy of the left breast, March 30, 1999. Cyst aspiration of the left breast. 3 lumpectomies of the left breast. 2 radiation therapies of the left breast. Physical Findings: A clinical breast exam by your physician is recommended on an annual basis and results should be correlated with mammographic findings. MG 3D Screening Mammo W/Cad Bilateral CC and MLO view(s) were taken. Prior study comparison: February 07, 2019, bilateral MG 3d diag mammo w/cad [facility]. March 28, 2015, bilateral MG 3d diag mammo w/cad [facility]. There are scattered fibroglandular densities. Post surgical change left breast with associated fat necrosis calcifications. Benign bilateral oil cyst and secretory calcifications. No significant changes when compared with prior studies. ASSESSMENT: Benign, BI-RAD 2 RECOMMENDATION: Routine screening mammogram of both breasts in 1 year.
== END | disposition home or self-care (01) ==
LOC: RADMAMWWP 14:26
PROVIDERS: ATTEND Family Medicine
DX: Z12.31 Encounter for screening mammogram for malignant neoplasm of breast (principal); Z78.0 Asymptomatic menopausal state; Z80.3 Family history of malignant neoplasm of breast
CPT/HCPCS: 77063; 77067

== ENCOUNTER → 2021-01-19 | Outpatient (CLI) | payer OTHER, MEDICARE ==
[2021-01-19 08:36] LABS: HCT 47.5 % (34.0-46.0); HGB 15.9 gm/dL (11.4-16.0); MCH 29.2 pg (25.0-35.0); MCHC 33.5 g/dL (31.0-37.0); MCV 87.1 fL (80.0-100.0); Mean Platelet Volume 7.6; Platelet Count 168 k/uL (150-450); RBC 5.46 m/uL (3.80-5.40); RDW 15.2 % (11.5-15.5); WBC 6.5 k/uL (3.8-10.6)
[2021-01-19 09:01] LABS: ALT 16 U/L (4-34); AST 30 U/L (14-36); African American GFR (CKD) >90 (>60 ml/min/1.73 sqM); Albumin 4.1 g/dL (3.5-5.0); Alkaline Phosphatase 87 U/L (38-126); Anion Gap 10 mmol/L; Blood Urea Nitrogen 14 mg/dL (7-17); Calcium 9.7 mg/dL (8.4-10.2); Carbon Dioxide 24 mmol/L (22-30); Chloride 106 mmol/L (98-107); Glucose 197 mg/dL (74-99); Non-African American GFR(CKD) >90 (>60 ml/min/1.73 sqM); Sodium 140 mmol/L (137-145); Total Bilirubin 0.6 mg/dL (0.2-1.3); Total Protein 6.6 g/dL (6.3-8.2)
[2021-01-19 09:18] LABS: T4, Free (Free Thyroxine) 1.16 ng/dL (0.78-2.19)
--- NOTE | 2021-01-19 12:29 | BD ---
EXAMINATION TYPE: Axial Bone Density DATE OF EXAM: 01/19/2021 COMPARISON: 04.14.2017 CLINICAL HISTORY: 65 YR OLD FEMALE.....ICD-10 CODE: Z13.820 OSTEOPOROSIS SCREENING Height: 61.3 Weight: 225 FRAX RISK QUESTIONS: History of Fracture in Adulthood: YES Secondary Osteoporosis: YES 1. Type 1 Diabetes: YES RISK FACTORS HISTORY OF: LT FOOT AND RT WRIST AN ADULT Family History of Osteoporosis: UNKNOWN Postmenopausal woman: YES, AT ABOUT, HY1997, UNSURE OF WHEN MENOPAUSE WAS Lost more than 2 inches in height since high school: YES Hyperparathyroidism: YES, STATES PATIENT Adrenal Insufficiency: NO MEDICATIONS: Thyroid Medications: YES, SYNTHROID, FOR ABOUT 23 YRS Osteoporosis Medications: YES, WEEKLY, FOR ABOUT 4-5 YRS Which medication: PT DOES NOT Additional Medications: BP MEDS, PAXIL, HX OF RADIATION FOR LT BR CANCER, INSULIN, REFLUX MEDS, STATI N FOR CHOLESTEROL, VIT D, Additional History: HX OF LT BR CANCER, HYPERTENSION, DIABETIC, REFLUX, CHOLESTEROL, AND DEPRESSION EXAM MEASUREMENTS: Bone mineral densitometry was performed using the [employer]. Bone mineral density as measured about the Lumbar spine is: ----- L1-L4(G/cm2): 1.020 T Score Values are as follows: ----- L1: -2.3 ----- L2: -2.5 ----- L3: -0.8 ----- L4: -0.4 ----- L1-L4: -1.3 Bone mineral density has: Increased 3.0% since study of: 04.14.2017 Bone mineral density about the R hip (g/cm2): 0.794 Bone mineral density about the L hip (g/cm2): 0.850 T Score values are as follows: -----R Neck: -1.7 -----L Neck: -2.1 -----R Total: -1.7 -----L Total: -1.3 Bone mineral density has: Increased 4.6% since study of: 04.14.2017 FRAX%s: THERE IS A 16.8% CHANCE FOR A MAJOR OSTEOPOROTIC FX AND A 2.8% FOR HIP......PROBABILITY F OR FX IN 10 YRS TIME IMPRESSION: Osteopenia NOTE: T-SCORE=SD OF THE YOUNG ADULT MEAN.
[2021-01-19 16:17] LABS: Chol/HDL Ratio 5.09; Cholesterol 163 mg/dL (0-200); LDL Cholesterol,Calculated 78.4 mg/dL (0.0-131.0)
== END | disposition home or self-care (01) ==
LOC: RADBDWWP 07:33
PROVIDERS: ATTEND Family Medicine
DX: Z13.820 Encounter for screening for osteoporosis (principal); M85.80 Other specified disorders of bone density and structure, unspecified site; Z00.00 Encounter for general adult medical examination without abnormal findings
CPT/HCPCS: 36415; 77080; 80053; 80061; 82306; 84439; 84443; 85027

== ENCOUNTER → 2021-02-18 | Outpatient (CLI) | payer OTHER | END | disposition home or self-care (01) | LOC: LABWHC1 15:10 | PROVIDERS: ATTEND Ophthalmology Ophthalmic Plastic and Reconstructive Surgery | DX: H02.429 Myogenic ptosis of unspecified eyelid (principal) | CPT/HCPCS: 36415; 83519 ==

== ENCOUNTER 2021-05-29 09:24 | Observation (INO) | payer MEDICARE, BC ==
[2021-05-29] MEDS ORDERED: ASPIRIN 81 MG PO STA (10:02)
[2021-05-29] MEDS ORDERED: NITROGLYCERIN OINT 1 INCH/GM PACKET TOPICAL STA (10:02)
--- NOTE | 2021-05-29 10:05 | ED ---
General Adult HPI - General Chief complaint: Shortness of Breath Stated complaint: chest pain Time Seen by Provider: 05/29/21 09:45 Source: patient, RN notes reviewed Mode of arrival: wheelchair Limitations: no limitations - History of Present Illness Initial comments: Patient is a pleasant 66-year-old female presenting to the emergency Department with complaints of dyspnea and chest discomfort. Onset of symptoms was through the night. Symptoms remain. Symptoms do worsen with exertion however somewhat worsen with position changes well. Discomfort in the chest feels like an ache or tightness. No leg pain or leg swelling. Patient does have history of previous heart disease and CABG around 5 years ago. - Related Data Home Medications Medication Instructions Recorded Confirmed Levothyroxine Sodium [Synthroid] 50 mcg PO DAILY 03/20/14 05/29/21 Clopidogrel [Plavix] 75 mg PO DAILY 11/20/15 05/29/21 Metoprolol Tartrate [Lopressor] 50 mg PO BID 11/20/15 05/29/21 PARoxetine [Paxil] 20 mg PO HS 11/20/15 05/29/21 Cholecalciferol [Vitamin D3 (25 25 mcg PO DAILY 05/16/20 05/29/21 Mcg = 1000 Iu)] Ubidecarenone [Co Q-10] 300 mg PO HS 05/16/20 05/29/21 Alendronate Sodium [Fosamax] 35 mg PO FULLER 05/29/21 05/29/21 Aspirin EC [Ecotrin Low Dose] 81 mg PO DAILY 05/29/21 05/29/21 Insulin Regular, Human [NovoLIN R] 0.01 unit SQ CONTINUOUS 05/29/21 05/29/21 Isosorbide Mononitrate ER [Imdur] 30 mg PO DAILY 05/29/21 05/29/21 Pantoprazole [Protonix] 40 mg PO BID 05/29/21 05/29/21 Previous Rx's Medication Instructions Recorded Atorvastatin [Lipitor] 80 mg PO HS #30 tab 09/13/15 Allergies Allergy/AdvReac Type Severity Reaction Status Date / Time HILARY Inhibitors Allergy Severe Anaphylaxis Verified 05/29/21 11:09 mold Allergy Allergy Verified 05/29/21 11:09 Test ezetimibe [From Zetia] AdvReac Leg pain Verified 05/29/21 11:09 Review of Systems ROS Statement: Those systems with pertinent positive or pertinent negative responses have been documented in the HPI. ROS Other: All systems not noted in ROS Statement are negative. Constitutional: Denies: fever Eyes: Denies: eye pain ENT: Denies: ear pain Respiratory: Reports: as per HPI, dyspnea. Denies: cough Cardiovascular: Reports: as per HPI, chest pain Endocrine: Denies: fatigue Gastrointestinal: Denies: abdominal pain Genitourinary: Denies: dysuria Musculoskeletal: Denies: back pain Skin: Denies: rash Neurological: Denies: weakness Past Medical History Past Medical History: Asthma, Coronary Artery Disease (CAD), Cancer, Chest Pain / Angina, Diabetes Mellitus, Deep Vein Thrombosis (DVT), GI Bleed, Hyperlipidemia, Hypertension, Myocardial Infarction ([place]), Pneumonia, Pulmonary Embolus (PE), Thyroid Disorder, Vascular Disorder Additional Past Medical History / Comment(s): Pleurisy, 07-25-15 NSTEMI, goiter, L breast ca with lumpectomy and 33 radiation tx in 1999, frozen shoulders, heart murmur, IDDM-insulin pump, nephrolithiasis bilaterally with surgery-still has some stones in R kidney, hypothyrioidism, unsure if PE was bilateral or unilateral, 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 GI bleed, anemia Last Myocardial Infarction Date:: History of Any Multi-Drug Resistant Organisms: None Reported Past Surgical History: Bladder Surgery, Breast Surgery, Coronary Bypass/CABG, Heart Catheterization, Heart Catheterization With Stent, Hysterectomy, Orthopedic Surgery Additional Past Surgical History / Comment(s): left breast lumpectomy, 2 surgeries for kidney stones(had stent placed.lithoprisy but had to go in and removed stone, cyst rt wrist, mult trigger finger surgeries, bilateral eyelid surgery, wilmar cataracts-lens implants, 07/18/15 QUAD CABG. 09/12 StentsX2-coronary arteries Past Anesthesia/Blood Transfusion Reactions: Previous Problems w/ Anesthesia, Family History of Problems w/ Anesthesia Additional Past Anesthesia/Blood Transfusion Reaction / Comment(s): " I wake up during surgery", sister "heart stopped one time on the table" Date of Last Stent Placement:: 08/2015 Past Psychological History: No Psychological Hx Reported Smoking Status: Former smoker Past Alcohol Use History: None Reported Past Drug Use History: None Reported - Past Family History Mother Family Medical History: Cancer, Deep Vein Thrombosis (DVT) Additional Family Medical History / Comment(s): uterine CA, Kidney Stones (Sister) Father Family Medical History: Coronary Artery Disease (CAD), Hyperlipidemia Brother(s) Family Medical History: Cancer Sister(s) Family Medical History: Cancer General Exam Limitations: no limitations General appearance: alert, in no apparent distress Head exam: Present: normocephalic Eye exam: Present: normal appearance Neck exam: Present: normal inspection Respiratory exam: Present: normal lung sounds bilaterally. Absent: chest wall tenderness Cardiovascular Exam: Present: regular rate, normal rhythm Expanded Peripheral pulses: 2+: Radial (R), Radial (L), Posterior Tibialis (R), Posterior Tibialis (L), Dorsalis Pedis (R), Dorsalis Pedis (L) GI/Abdominal exam: Present: soft. Absent: tenderness Extremities exam: Present: normal inspection. Absent: pedal edema, calf tenderness Neurological exam: Present: alert Psychiatric exam: Present: normal affect, normal mood Skin exam: Present: normal color Course Vital Signs 05/29/21 05/29/21 09:32 11:20 Temperature 98.9 F Pulse Rate 58 L 58 L Respiratory 18 18 Rate Blood Pressure 167/78 183/71 O2 Sat by Pulse 98 94 L Oximetry EKG Findings - EKG Comments: EKG Findings:: Normal sinus rhythm with rate of 68. OH 140. QRS 94. QT 450. QTC 47. Left axis. Incomplete right bundle-branch block. Lateral T wave inversion with downward QRS. Medical Decision Making - Medical Decision Making Patient reevaluated and resting comfortably in bed. Patient updated on results and plan. Case also discussed with Dr. Bailey, who will admit covering Dr. shafer . She is aware of pending ct - Lab Data Result diagrams: 05/29/21 10:34 05/29/21 10:34 Lab Results 05/29/21 05/29/21 05/29/21 Range/Units 10:34 10:34 10:34 WBC 8.4 (3.8-10.6) k/uL RBC 4.88 (3.80-5.40) m/uL Hgb 13.9 (11.4-16.0) gm/dL Hct 43.3 (34.0-46.0) % MCV 88.7 (80.0-100.0) fL MCH 28.5 (25.0-35.0) pg MCHC 32.1 (31.0-37.0) g/dL RDW 13.5 (11.5-15.5) % Plt Count 167 (150-450) k/uL MPV 7.8 Neutrophils % 75 % Lymphocytes % 16 % Monocytes % 5 % Eosinophils % 2 % Basophils % 1 % Neutrophils # 6.3 (1.3-7.7) k/uL Lymphocytes # 1.4 (1.0-4.8) k/uL Monocytes # 0.4 (0-1.0) k/uL Eosinophils # 0.2 (0-0.7) k/uL Basophils # 0.1 (0-0.2) k/uL PT 10.3 (9.0-12.0) sec INR 1.0 (<1.2) APTT 22.6 (22.0-30.0) sec D-Dimer 1.19 H (<0.60) mg/L FEU Sodium 136 L (137-145) mmol/L Potassium 3.9 (3.5-5.1) mmol/L Chloride 103 (98-107) mmol/L Carbon Dioxide 23 (22-30) mmol/L Anion Gap 10 mmol/L BUN 15 (7-17) mg/dL Creatinine 0.58 (0.52-1.04) mg/dL Est GFR (CKD-EPI)AfAm >90 (>60 ml/min/1.73 sqM) Est GFR (CKD-EPI)NonAf >90 (>60 ml/min/1.73 sqM) Glucose 285 H (74-99) mg/dL Calcium 8.9 (8.4-10.2) mg/dL Magnesium 1.5 L (1.6-2.3) mg/dL Total Bilirubin 0.7 (0.2-1.3) mg/dL AST 44 H (14-36) U/L ALT 40 H (4-34) U/L Alkaline Phosphatase 102 (38-126) U/L Troponin I (0.000-0.034) ng/mL NT-Pro-B Natriuret Pep pg/mL Total Protein 6.1 L (6.3-8.2) g/dL Albumin 3.8 (3.5-5.0) g/dL Amylase 31 (30-110) U/L Lipase 80 (23-300) U/L Coronavirus (PCR) (Not Detectd) 05/29/21 05/29/21 05/29/21 Range/Units 10:34 10:34 10:34 WBC (3.8-10.6) k/uL RBC (3.80-5.40) m/uL Hgb (11.4-16.0) gm/dL Hct (34.0-46.0) % MCV (80.0-100.0) fL MCH (25.0-35.0) pg MCHC (31.0-37.0) g/dL RDW (11.5-15.5) % Plt Count (150-450) k/uL MPV Neutrophils % % Lymphocytes % % Monocytes % % Eosinophils % % Basophils % % Neutrophils # (1.3-7.7) k/uL Lymphocytes # (1.0-4.8) k/uL Monocytes # (0-1.0) k/uL Eosinophils # (0-0.7) k/uL Basophils # (0-0.2) k/uL PT (9.0-12.0) sec INR (<1.2) APTT (22.0-30.0) sec D-Dimer (<0.60) mg/L FEU Sodium (137-145) mmol/L Potassium (3.5-5.1) mmol/L Chloride (98-107) mmol/L Carbon Dioxide (22-30) mmol/L Anion Gap mmol/L BUN (7-17) mg/dL Creatinine (0.52-1.04) mg/dL Est GFR (CKD-EPI)AfAm (>60 ml/min/1.73 sqM) Est GFR (CKD-EPI)NonAf (>60 ml/min/1.73 sqM) Glucose (74-99) mg/dL Calcium (8.4-10.2) mg/dL Magnesium (1.6-2.3) mg/dL Total Bilirubin (0.2-1.3) mg/dL AST (14-36) U/L ALT (4-34) U/L Alkaline Phosphatase (38-126) U/L Troponin I <0.012 (0.000-0.034) ng/mL NT-Pro-B Natriuret Pep 2820 pg/mL Total Protein (6.3-8.2) g/dL Albumin (3.5-5.0) g/dL Amylase (30-110) U/L Lipase (23-300) U/L Coronavirus (PCR) Not Detected (Not Detectd) - Radiology Data Radiology results: image reviewed (Chest x-ray concerning for CHF) Disposition Clinical Impression: CHF (congestive heart failure) Disposition: ADMITTED IP TO THIS HOSP Is patient prescribed a controlled substance at d/c from ED?: No Referrals: Maryellen Souza MD [Primary Care Provider] - 1-2 days Decision Time: 12:42
--- NOTE | 2021-05-29 10:52 | XR ---
EXAMINATION TYPE: XR chest 2V DATE OF EXAM: 05/29/2021 COMPARISON: 05/16/2020 HISTORY: Shortness of breath TECHNIQUE: Frontal and lateral views of the chest are obtained. FINDINGS: Scattered senescent parenchymal changes noted. Hyperinflation compatible with COPD. There is evidence of cardiomegaly with pulmonary venous congestion and scattered interstitial edema. Small effusions noted. Sternotomy wires mediastinal clips identified in place. Mediastinal structures are stable and grossly unremarkable. No evidence for hilar prominence. Degenerative changes dorsal spine. IMPRESSION: 1. Correlate for changes of congestive failure.
[2021-05-29 11:00] LABS: Basophils # (A) 0.1 k/uL (0-0.2); Basophils % (A) 1 %; Eosinophils # (A) 0.2 k/uL (0-0.7); Eosinophils % (A) 2 %; HCT 43.3 % (34.0-46.0); HGB 13.9 gm/dL (11.4-16.0); Lymphocytes # (A) 1.4 k/uL (1.0-4.8); Lymphocytes % (A) 16 %; MCH 28.5 pg (25.0-35.0); MCHC 32.1 g/dL (31.0-37.0); MCV 88.7 fL (80.0-100.0); Mean Platelet Volume 7.8; Monocytes # (A) 0.4 k/uL (0-1.0); Monocytes % (A) 5 %; Neutrophils # (A) 6.3 k/uL (1.3-7.7); Neutrophils % (A) 75 %; Platelet Count 167 k/uL (150-450); RBC 4.88 m/uL (3.80-5.40); RDW 13.5 % (11.5-15.5); WBC 8.4 k/uL (3.8-10.6)
[2021-05-29 11:23] LABS: ALT 40 U/L (4-34); AST 44 U/L (14-36); African American GFR (CKD) >90 (>60 ml/min/1.73 sqM); Albumin 3.8 g/dL (3.5-5.0); Alkaline Phosphatase 102 U/L (38-126); Amylase 31 U/L (30-110); Anion Gap 10 mmol/L; Blood Urea Nitrogen 15 mg/dL (7-17); Calcium 8.9 mg/dL (8.4-10.2); Carbon Dioxide 23 mmol/L (22-30); Chloride 103 mmol/L (98-107); Glucose 285 mg/dL (74-99); Lipase 80 U/L (23-300); Magnesium 1.5 mg/dL (1.6-2.3); Non-African American GFR(CKD) >90 (>60 ml/min/1.73 sqM); Partial Thromboplastin Time 22.6 sec (22.0-30.0); Potassium 3.9 mmol/L (3.5-5.1); Prothrombin Time 10.3 sec (9.0-12.0); Sodium 136 mmol/L (137-145); Total Bilirubin 0.7 mg/dL (0.2-1.3); Total Protein 6.1 g/dL (6.3-8.2)
[2021-05-29] MEDS ORDERED: ASPIRIN 325 MG TAB PO STA (12:42)
[2021-05-29] MEDS: NITROGLYCERIN OINT 1 INCH/GM PACKET TOPICAL SCH ×2 (13:14→20:55)
[2021-05-29] MEDS: FUROSEMIDE 10 MG/ML 4 ML VIAL IV SCH ×2 (13:17→20:55)
--- NOTE | 2021-05-29 14:17 | CT ---
EXAMINATION TYPE: CT angio chest DATE OF EXAM: 05/29/2021 COMPARISON: 11/21/2015 HISTORY: SOB, Chest pain CT DLP: 437.7 mGycm CONTRAST: CT chest with contrast and 3D reconstruction with MIP imaging is performed with IV Contrast, patient injected with 78 mL of Isovue 370. Contrast-enhanced CT of the chest was performed through the course of the pulmonary arteries with lebron g and mediastinal window settings submitted. 3D reconstruction with MIP imaging was also performed. PULMONARY ARTERIES: The pulmonary arteries and their major tributaries are patent. I do not see cody dence for sizable filling defect to suggest pulmonary embolic process. LUNGS: The lungs are clear and free of infiltrate. No evidence for atelectasis. No pulmonary nodule or mass is detected. No pleural effusion. MEDIASTINUM: Thoracic aorta is of normal caliber. The heart is enlarged. Small bilateral pleural eff usions noted. Pulmonary venous congestion. No evidence for mediastinal mass. No mediastinal lymph no mahin greater than 1cm. HILAR STRUCTURES: No evidence for mass. No hilar lymph nodes greater than 1 cm. UPPER ABDOMEN: No significant abnormality is seen. IMPRESSION: 1. No evidence for Pulmonary embolism at this time. 2. Correlate for mild congestive failure.
[2021-05-29] MEDS ORDERED: ACETAMINOPHEN TAB 500 MG TAB PO STA (15:55)
[2021-05-29 23:43] LABS: Glucose,Whole Blood 194 mg/dL (75-99)
[2021-05-29] MEDS: METOPROLOL TARTRATE 50 MG TAB PO SCH (23:50)
[2021-05-29] MEDS: PARoxetine 20 MG TAB PO SCH (23:51)
[2021-05-29] MEDS: PANTOPRAZOLE 40 MG TABLET PO SCH (23:51)
[2021-05-29] MEDS: ATORVASTATIN 80 MG TAB PO SCH (23:51)
[2021-05-30] MEDS ORDERED: MAGNESIUM SULFATE-D5W PMX 1 GM in DEXTROSE/WATER 1 100ML.BAG IVPB ONE (02:22)
--- NOTE | 2021-05-30 02:39 | P.HPIM ---
History of Present Illness H&P Date: 05/29/21 Chief Complaint: exertional dyspnea 66 year old female with CAD, DM , hypothyroid patient comes in due to worsening SOB with exertion, she also reports some orthopnea, SOB has woken her up from sleep today and all day noticed , exertional dyspnea even with mild exertion resulting in SKYLER , and chest pain retrosternal radiating to neck and both shoulder. no associated sweating, nausea vomting, dizziness or light headedness, no profuse sweating, pain usually 5/10 in severity but her main concern was the SOB, she also noticed some orthopnea today. this is all atypical for her as normally she can walk outside the house and does grocery shopping with no limitations. her last stress test was 2 years ago and was told that there was may be a small suspicious spot, but will be managed medically . has history of CABG 5 years ago otherwise, she denies any changes in her medications, and she has been compliant with her meds, denies any leg swelling. however her left leg usually slightly swollen compared to right leg, as it was the leg used to harvest her CABG vessels her breathing has improved since she received diuretics and went to bathroom twice. her DM has been uncontrolled, and currently she has been adjusting her home insulin pump with her doc. no recent travel or hospitalization . workup int he ED , EKGG showed lateral T wave inversions trops negative X3 d dimer elevated , CTA chest no acute PE, but showed mild CHF changes Review of Systems Pertinent positives as noted in HPI. All other systems were reviewed and are negative Past Medical History Past Medical History: Asthma, Coronary Artery Disease (CAD), Cancer, Chest Pain / Angina, Diabetes Mellitus, Deep Vein Thrombosis (DVT), GI Bleed, Hyperlipidemia, Hypertension, Myocardial Infarction ([place]), Pneumonia, Pulmonary Embolus ([place]), Thyroid Disorder, Vascular Disorder Additional Past Medical History / Comment(s): Pleurisy, 2--16 NSTEMI, goiter, L breast ca with lumpectomy and 33 radiation tx in 1999, frozen shoulders, heart murmur, IDDM-insulin pump, nephrolithiasis bilaterally with surgery-still has some stones in R kidney, hypothyrioidism, unsure if PE was bilateral or unilateral, 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 GI bleed, anemia Last Myocardial Infarction Date:: History of Any Multi-Drug Resistant Organisms: None Reported Past Surgical History: Bladder Surgery, Breast Surgery, Coronary Bypass/CABG, Heart Catheterization, Heart Catheterization With Stent, Hysterectomy, Orthopedic Surgery Additional Past Surgical History / Comment(s): left breast lumpectomy, 2 surger ies for kidney stones(had stent placed.lithoprisy but had to go in and removed stone, cyst rt wrist, mult trigger finger surgeries, bilateral eyelid surgery, wilmar cataracts-lens implants, 07/18/15 QUAD CABG. 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 CURRENTLY HAS [facility] 2X WEEK. Just went back to work yesterday 09/08/15. Driving again. Smoking Status: Never smoker Past Alcohol Use History: None Reported Additional Past Alcohol Use History / Comment(s): started smoking age 14, smoked 1/2 PPD quit jun 2015 Past Drug Use History: None Reported - Past Family History Mother Family Medical History: Cancer, Deep Vein Thrombosis (DVT) Additional Family Medical History / Comment(s): uterine CA, Kidney Stones ([place]) Father Family Medical History: Coronary Artery Disease (CAD), Hyperlipidemia Brother(s) Family Medical History: Cancer Sister(s) Family Medical History: Cancer Medications and Allergies Home Medications Medication Instructions Recorded Confirmed Type Levothyroxine Sodium [Synthroid] 50 mcg PO DAILY 03/20/14 05/29/21 History Atorvastatin [Lipitor] 80 mg PO HS #30 tab 09/13/15 05/29/21 Rx Clopidogrel [Plavix] 75 mg PO DAILY 11/20/15 05/29/21 History Metoprolol Tartrate [Lopressor] 50 mg PO BID 11/20/15 05/29/21 History PARoxetine [Paxil] 20 mg PO HS 11/20/15 05/29/21 History Cholecalciferol [Vitamin D3 (25 25 mcg PO DAILY 05/16/20 05/29/21 History Mcg = 1000 Iu)] Ubidecarenone [Co Q-10] 300 mg PO HS 05/16/20 05/29/21 History Alendronate Sodium [Fosamax] 35 mg PO FULLER 05/29/21 05/29/21 History Aspirin EC [Ecotrin Low Dose] 81 mg PO DAILY 05/29/21 05/29/21 History Insulin Regular, Human [NovoLIN R] 0.01 unit SQ CONTINUOUS 05/29/21 05/29/21 History Isosorbide Mononitrate ER [Imdur] 30 mg PO DAILY 05/29/21 05/29/21 History Pantoprazole [Protonix] 40 mg PO BID 05/29/21 05/29/21 History Allergies Allergy/AdvReac Type Severity Reaction Status Date / Time HILARY Inhibitors Allergy Severe Anaphylaxis Verified 05/29/21 11:09 mold Allergy Allergy Verified 05/29/21 11:09 Test ezetimibe [From Zetia] AdvReac Leg pain Verified 05/29/21 11:09 Physical Exam Vitals: Vital Signs Temp Pulse Pulse Resp BP BP Pulse Ox 05/29/21 21:56 18 05/29/21 18:48 57 L 18 135/60 93 L 05/29/21 15:53 54 L 16 149/64 92 L 05/29/21 13:44 98.2 F 62 18 140/64 94 L 05/29/21 11:20 58 L 18 183/71 94 L 05/29/21 09:32 98.9 F 58 L 18 167/78 98 Intake and Output 05/29/21 05/29/21 05/29/21 06:59 14:59 22:59 Other: Weight 90.718 kg Constitutional: No acute distress, conversant, pleasant Eyes: Anicteric sclerae, moist conjunctiva, Pupils equal round reactive to light ENMT: NC/AT Oropharynx clear, no erythema, or exudates Neck: Supple, no masses, or JVD No carotid bruits No thyromegaly Lungs: good breath sounds overall, iinspiartory rales at lung bases Clear to percussion Normal respiratory effort, no accessory muscle use Cardiovascular: Heart regular in rate and rhythm, No murmurs, gallops, or rubs No peripheral edema Abdominal: Soft Nontender, no guarding, rebound or rigidity Abdomen moving with respiration Normoactive bowel sounds No hepatomegaly, No splenomegaly No palpable mass No abdominal wall hernia noted Skin: Normal temperature, tone, texture, turgor No induration No subcutaneous nodules No rash, lesions No ulcers Extremities: No digital cyanosis No clubbing Pedal pulses intact and symmetrical Radial pulses intact and symmetrical No calf tenderness Psychiatric: Alert and oriented to person, place and time Appropriate affect fair judgement Neuro Muscles Strength 4/5 in all 4 extremities Sensation to light touch grossly present throughout Cranial nerves II-XII grossly intact No focal sensory deficits Lymphatics: no palpable cervical or supraclavicular , or inguinal lymph nodes Results CBC & Chem 7: 05/29/21 10:34 05/29/21 10:34 Labs: Abnormal Lab Results - Last 24 Hours (Table) 05/29/21 05/29/21 Range/Units 10:34 10:34 D-Dimer 1.19 H (<0.60) mg/L FEU Sodium 136 L (137-145) mmol/L Glucose 285 H (74-99) mg/dL Magnesium 1.5 L (1.6-2.3) mg/dL AST 44 H (14-36) U/L ALT 40 H (4-34) U/L Total Protein 6.1 L (6.3-8.2) g/dL Thrombosis Risk Factor Assmnt - Choose All That Apply Any of the Below Risk Factors Present?: Yes Each Factor Represents 1 point: Medical pt on bed rest, Obesity (BMI >25), Serious lung disease incl. pneumonia (< 1month) Each Risk Factor Represents 2 Points: Age 61-74 years Each Risk Factor Represents 3 Points: History of DVT/PE Other congenital or acquired thrombophilia - If yes, enter type in comment: No Thrombosis Risk Factor Assessment Total Risk Factor Score: 8 Thrombosis Risk Factor Assessment Level: High Risk Assessment and Plan Assessment: mild acute CHF exacerbation with exertional dyspnea , rule out ACS trops negative X 3 EKG lateral T wave inversion cardiology eval resume cardiac meds supportive care IV diuresis daily weight fluid restriction to 2 L cardiac diet resume cardiac meds, aspirin, statin hyperglycemia DM insulin sliding scale check A1C chronic conditions hypothyroid , resume home meds hyperlipidemia , resume statin h/o CAD s/p CABG 5 years ago h/o breast cancer full code heparin sc tid for DVT PPX anticipated length of stay <2 midnights anticipated discharge home
[2021-05-30] MEDS: FUROSEMIDE 10 MG/ML 4 ML VIAL IV SCH ×3 (05:29→21:42)
[2021-05-30 07:04] LABS: Glucose,Whole Blood 281 mg/dL (75-99)
[2021-05-30] MEDS: LEVOTHYROXINE 50 MCG TAB PO SCH (07:14)
[2021-05-30] MEDS: PANTOPRAZOLE 40 MG TABLET PO SCH ×2 (07:16→17:56)
[2021-05-30] MEDS: ASPIRIN 325 MG TAB PO SCH (09:33)
[2021-05-30] MEDS: CLOPIDOGREL 75 MG TAB PO SCH (09:33)
[2021-05-30] MEDS: METOPROLOL TARTRATE 50 MG TAB PO SCH ×2 (09:34→21:43)
[2021-05-30] MEDS: HEPARIN SODIUM,PORCINE/PF 5,000 UNIT/0.5 ML SYRINGE SQ SCH ×2 (09:34→17:56)
[2021-05-30] MEDS: ISOSORBIDE MONONITRATE ER 30 MG TAB.ER.24H PO SCH (09:34)
--- NOTE | 2021-05-30 10:34 | P.CRDCN ---
History of Present Illness History of present illness: HISTORY OF PRESENTING ILLNESS This is a pleasant 66-year-old with past medical history significant for coronary artery disease status post CABG 2016, hypertension, diabetes mellitus type 2, preserved ejection fraction. She follows in the office with Dr Parish. She states she has been doing fairly well up until yesterday when she started feeling increased dyspnea and shortness breath and was having a harder time breathing. She was struggling to breathe and therefore started having chest discomfort when she took a deep breath and. She felt like this was related to her struggling to breathe. She presented to emergency department and had a CTA performed which showed no pulmonary embolism however findings consistent with heart failure. She was noted to have a elevated proBNP, normal kidney function, minimally elevated AST and ALTs and normal troponins 3. She admits that with her prior bypass and was more dyspnea on exertion and actually not much chest pain. She admits that with [place] she was not eating well and eating trees oh and more salty food that her family members have made including leftovers and believes this likely had something to do with it. She received IV Lasix with increased urine output and has been feeling much better compared to yesterday. REVIEW OF SYSTEMS At the time of my exam: CONSTITUTIONAL: Denies fever or chills. CARDIOVASCULAR: +chest pain, +shortness of breath, no orthopnea, PND or palpitations. RESPIRATORY: Denies cough. GASTROINTESTINAL: Denies abdominal pain, diarrhea, constipation, nausea or vomiting. MUSCULOSKELETAL: Denies myalgias. NEUROLOGIC: Denies numbness, tingling or weakness. ENDOCRINE: Denies fatigue, weight change, polydipsia or polyurina. GENITOURINARY: Denies burning, hematuria or urgency with micturation. HEMATOLOGIC: Denies history of anemia or bleeding. PHYSICAL EXAMINATION Vital signs reviewed. CONSTITUTIONAL: No apparent distress. HEENT: Head is normocephalic. Pupils are equal, round. Sclerae anicteric. Mucous membranes of the mouth are moist. No JVD. No carotid bruit. CHEST EXAMINATION: Mild crackles at bases HEART EXAMINATION: Regular rate and rhythm. S1, S2 heard. No murmurs, gallops or rub. ABDOMEN: Soft, nontender. Positive bowel sounds. EXTREMITIES: 2+ peripheral pulses, no lower extremity edema and no calf tenderness. NEUROLOGIC EXAMINATION: Patient is awake, alert and oriented x3. ASSESSMENT 1. Acute on chronic diastolic heart failure 2. Coronary artery disease with prior history of CABG and PCI 3. atypical chest pain worse with inspiration and appears more musculoskeletal, do not suspect acute coronary syndrome 4. Hypertension 5. Hyperlipidemia PLAN Appears she had decompensation related to increased salt intake and otherwise no significant angina-type symptoms with normal troponins noted. She has been doing much better since diuretics and we will continue with 1 more day of diuresis and monitor response. Likely home tomorrow if she is continuing to improve and remains stable. Past Medical History Past Medical History: Asthma, Coronary Artery Disease (CAD), Cancer, Chest Pain / Angina, Diabetes Mellitus, Deep Vein Thrombosis (DVT), GI Bleed, Hyperlipidemia, Hypertension, Myocardial Infarction (UT), Pneumonia, Pulmonary Embolus (PE), Thyroid Disorder, Vascular Disorder Additional Past Medical History / Comment(s): Pleurisy, 07-25-15 NSTEMI, goiter, L breast ca with lumpectomy and 33 radiation tx in 1999, frozen shoulders, heart murmur, IDDM-insulin pump, nephrolithiasis bilaterally with surgery-still has some stones in R kidney, hypothyrioidism, unsure if PE was bilateral or unilateral, 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 GI bleed, anemia Last Myocardial Infarction Date:: History of Any Multi-Drug Resistant Organisms: None Reported Past Surgical History: Bladder Surgery, Breast Surgery, Coronary Bypass/CABG, Heart Catheterization, Heart Catheterization With Stent, Hysterectomy, Orthopedic Surgery Additional Past Surgical History / Comment(s): left breast lumpectomy, 2 nance rgeries for kidney stones(had stent placed.lithoprisy but had to go in and removed stone, cyst rt wrist, mult trigger finger surgeries, bilateral eyelid surgery, wilmar cataracts-lens implants, 07/18/15 QUAD CABG. 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 Just went back to work yesterday 09/08/15. Driving again. Smoking Status: Never smoker Past Alcohol Use History: None Reported Additional Past Alcohol Use History / Comment(s): started smoking age 14, smoked 1/2 PPD quit jun 2015 Past Drug Use History: None Reported - Past Family History Mother Family Medical History: Cancer, Deep Vein Thrombosis (DVT) Additional Family Medical History / Comment(s): uterine CA, Kidney Stones (Sister) Father Family Medical History: Coronary Artery Disease (CAD), Hyperlipidemia Brother(s) Family Medical History: Cancer Sister(s) Family Medical History: Cancer Medications and Allergies Home Medications Medication Instructions Recorded Confirmed Type Levothyroxine Sodium [Synthroid] 50 mcg PO DAILY 03/20/14 05/29/21 History Atorvastatin [Lipitor] 80 mg PO HS #30 tab 09/13/15 05/29/21 Rx Clopidogrel [Plavix] 75 mg PO DAILY 11/20/15 05/29/21 History Metoprolol Tartrate [Lopressor] 50 mg PO BID 11/20/15 05/29/21 History PARoxetine [Paxil] 20 mg PO HS 11/20/15 05/29/21 History Cholecalciferol [Vitamin D3 (25 25 mcg PO DAILY 05/16/20 05/29/21 History Mcg = 1000 Iu)] Ubidecarenone [Co Q-10] 300 mg PO HS 05/16/20 05/29/21 History Alendronate Sodium [Fosamax] 35 mg PO NANCE 05/29/21 05/29/21 History Aspirin EC [Ecotrin Low Dose] 81 mg PO DAILY 05/29/21 05/29/21 History Insulin Regular, Human [NovoLIN R] 0.01 unit SQ CONTINUOUS 05/29/21 05/29/21 History Isosorbide Mononitrate ER [Imdur] 30 mg PO DAILY 05/29/21 05/29/21 History Pantoprazole [Protonix] 40 mg PO BID 05/29/21 05/29/21 History Allergies Allergy/AdvReac Type Severity Reaction Status Date / Time HILARY Inhibitors Allergy Severe Anaphylaxis Verified 05/29/21 11:09 mold Allergy Allergy Verified 05/29/21 11:09 Test ezetimibe [From Zetia] AdvReac Leg pain Verified 05/29/21 11:09 Physical Exam Vitals: Vital Signs Temp Pulse Pulse Resp BP BP Pulse Ox 05/30/21 04:00 98.7 F 61 18 153/68 91 L 05/30/21 02:00 91 18 05/30/21 00:00 98.1 F 91 18 119/58 05/29/21 21:56 18 05/29/21 18:48 57 L 18 135/60 93 L 05/29/21 15:53 54 L 16 149/64 92 L 05/29/21 13:44 98.2 F 62 18 140/64 94 L 05/29/21 11:20 58 L 18 183/71 94 L Intake and Output 05/29/21 05/30/21 05/30/21 22:59 06:59 14:59 Output Total 600 Balance -600 Output: Urine 600 Results 05/29/21 10:34 05/29/21 10:34 Cardiac Enzymes 05/29/21 05/29/21 05/29/21 Range/Units 10:34 10:34 13:12 AST 44 H (14-36) U/L Troponin I <0.012 <0.012 (0.000-0.034) ng/mL 05/29/21 Range/Units 16:27 AST (14-36) U/L Troponin I <0.012 (0.000-0.034) ng/mL Coagulation 05/29/21 Range/Units 10:34 PT 10.3 (9.0-12.0) sec APTT 22.6 (22.0-30.0) sec CBC 05/29/21 Range/Units 10:34 WBC 8.4 (3.8-10.6) k/uL RBC 4.88 (3.80-5.40) m/uL Hgb 13.9 (11.4-16.0) gm/dL Hct 43.3 (34.0-46.0) % Plt Count 167 (150-450) k/uL Comprehensive Metabolic Panel 05/29/21 Range/Units 10:34 Sodium 136 L (137-145) mmol/L Potassium 3.9 (3.5-5.1) mmol/L Chloride 103 (98-107) mmol/L Carbon Dioxide 23 (22-30) mmol/L BUN 15 (7-17) mg/dL Creatinine 0.58 (0.52-1.04) mg/dL Glucose 285 H (74-99) mg/dL Calcium 8.9 (8.4-10.2) mg/dL AST 44 H (14-36) U/L ALT 40 H (4-34) U/L Alkaline Phosphatase 102 (38-126) U/L Total Protein 6.1 L (6.3-8.2) g/dL Albumin 3.8 (3.5-5.0) g/dL Current Medications Generic Name Dose Route Start Last Admin Trade Name Freq PRN Reason Stop Dose Admin Aspirin 325 mg 05/30/21 09:00 05/30/21 09:33 Aspirin 325 Mg Tab PO 325 mg DAILY ANNA Administration Atorvastatin Calcium 80 mg 05/29/21 22:00 05/29/21 23:51 Atorvastatin 80 Mg Tab PO 80 mg HS ANNA Administration Clopidogrel Bisulfate 75 mg 05/30/21 09:00 05/30/21 09:33 Clopidogrel 75 Mg Tab PO 75 mg DAILY ANNA Administration Furosemide 40 mg 05/29/21 12:45 05/30/21 05:29 Furosemide 10 Mg/Ml 4 Ml Vial IV 40 mg Q8H ANNA Administration Heparin Sodium (Porcine) 5,000 unit 05/30/21 08:00 05/30/21 09:34 Heparin Sodium,Porcine/Pf 5,000 Unit/0.5 Ml Syringe SQ 5,000 unit Q8HR ANNA Administration Insulin Aspart 0 unit 05/30/21 07:30 Insulin Aspart (Novolog) 100 Unit/Ml Vial SQ ACHS [facility] Protocol Isosorbide Mononitrate 30 mg 05/30/21 09:00 05/30/21 09:34 Isosorbide Mononitrate Er 30 Mg Tab.Er.24h PO 30 mg DAILY ANNA Administration Levothyroxine Sodium 50 mcg 05/30/21 06:30 05/30/21 07:14 Levothyroxine 50 Mcg Tab PO 50 mcg DAILY@0630 ANNA Administration Metoprolol Tartrate 50 mg 05/29/21 22:00 05/30/21 09:34 Metoprolol Tartrate 50 Mg Tab PO 50 mg BID ANNA Administration Pantoprazole Sodium 40 mg 05/29/21 22:15 05/30/21 07:16 Pantoprazole 40 Mg Tablet PO 40 mg AC-BID ANNA Administration Paroxetine HCl 20 mg 05/29/21 22:15 05/29/21 23:51 Paroxetine 20 Mg Tab PO 20 mg HS ANNA Administration Sodium Chloride 10 ml 05/29/21 21:00 05/30/21 09:34 Sodium Chloride 0.9% Flush 10 Ml Syringe IV 10 ml BID ANNA Administration Intake and Output 05/29/21 05/30/21 05/30/21 22:59 06:59 14:59 Output Total 600 Balance -600 Output: Urine 600 05/29/21 10:34 05/29/21 10:34
[2021-05-30 10:39] LABS: African American GFR (CKD) >90 (>60 ml/min/1.73 sqM); Anion Gap 15 mmol/L; Blood Urea Nitrogen 15 mg/dL (7-17); Calcium 9.2 mg/dL (8.4-10.2); Carbon Dioxide 26 mmol/L (22-30); Chloride 97 mmol/L (98-107); Glucose 405 mg/dL (74-99); Magnesium 1.8 mg/dL (1.6-2.3); Non-African American GFR(CKD) 80 (>60 ml/min/1.73 sqM); Potassium 3.8 mmol/L (3.5-5.1); Sodium 138 mmol/L (137-145)
[2021-05-30 10:49] VITALS: BMI 36.6
--- NOTE | 2021-05-30 11:15 | P.PN ---
Subjective Progress Note Date: 05/30/21 Principal diagnosis: mild acute CHF exacerbation with exertional dyspnea , rule out ACS trops negative X 3 EKG lateral T wave inversion cardiology eval resume cardiac meds supportive care IV diuresis daily weight fluid restriction to 2 L cardiac diet resume cardiac meds, aspirin, statin Overall condition of the patient improving continue to have swelling in the lower extremities and shortness breath but improving laparotomy Head and curetted hyperglycemia DM insulin sliding scale check A1C chronic conditions hypothyroid , resume home meds hyperlipidemia , resume statin h/o CAD s/p CABG 5 years ago h/o breast cancer full code heparin sc tid for DVT PPX anticipated length of stay <2 midnights anticipated discharge home Constitutional: No acute distress, conversant, pleasant Eyes: Anicteric sclerae, moist conjunctiva, no lid-lag PERRLA ENMT: NC/AT Oropharynx clear, no erythema, exudates Neck: Supple, FROM, no masses, or JVD No carotid bruits No thyromegaly Lungs: Clear to auscultation Clear to percussion Normal respiratory effort, no accessory muscle use Cardiovascular: Heart regular in rate and rhythm, No murmurs, gallops, or rubs No peripheral edema Abdominal: Soft Nontender, no guarding, rebound or rigidity Abdomen moving with respiration Normoactive bowel sounds No hepatomegaly, No splenomegaly No palpable mass No abdominal wall hernia noted Skin: Normal temperature, tone, texture, turgor No induration No subcutaneous nodules No rash, lesions No ulcers Extremities: No digital cyanosis No clubbing Pedal pulses intact and symmetrical Radial pulses intact and symmetrical Normal gait and station No calf tenderness Psychiatric:Alert and oriented to person, place and time Appropriate affect Intact judgement Neuro: Muscles Strength 5/5 in all 4 extremities Sensation to light touch grossly present throughout Cranial nerves II-XII grossly intact No focal sensory deficits 2+ edema in the lower extremity bilaterally Objective - Vital Signs Vital signs: Vital Signs Temp 98.7 F 05/30/21 04:00 Pulse 61 05/30/21 04:00 Resp 18 05/30/21 04:00 BP 153/68 05/30/21 04:00 Pulse Ox 91 L 05/30/21 04:00 Intake & Output 05/29/21 05/30/21 05/30/21 18:59 06:59 18:59 Output Total 600 Balance -600 Weight 90.718 kg 90.718 kg Output: Urine 600 - Labs CBC & Chem 7: 05/29/21 10:34 05/30/21 09:23 Labs: Abnormal Lab Results - Last 24 Hours (Table) 05/29/21 05/29/21 05/29/21 Range/Units 10:34 10:34 23:39 D-Dimer 1.19 H (<0.60) mg/L FEU Sodium 136 L (137-145) mmol/L Chloride (98-107) mmol/L Glucose 285 H (74-99) mg/dL POC Glucose (mg/dL) 194 H (75-99) mg/dL Magnesium 1.5 L (1.6-2.3) mg/dL AST 44 H (14-36) U/L ALT 40 H (4-34) U/L Total Protein 6.1 L (6.3-8.2) g/dL 05/30/21 05/30/21 Range/Units 06:59 09:23 D-Dimer (<0.60) mg/L FEU Sodium (137-145) mmol/L Chloride 97 L (98-107) mmol/L Glucose 405 H (74-99) mg/dL POC Glucose (mg/dL) 281 H (75-99) mg/dL Magnesium (1.6-2.3) mg/dL AST (14-36) U/L ALT (4-34) U/L Total Protein (6.3-8.2) g/dL
[2021-05-30 12:11] LABS: Glucose,Whole Blood 365 mg/dL (75-99)
[2021-05-30] MEDS: INSULIN ASPART (NovoLOG) 100 UNIT/ML VIAL SQ SCH ×4 (12:21→21:43)
[2021-05-30] MEDS ORDERED: Magnesium Replacement Protocol 1 EACH MISC MISCELLANE PRN (13:56)
[2021-05-30] MEDS ORDERED: Potassium Replacement Protocol 1 EACH MISC MISCELLANE PRN (13:56)
[2021-05-30] MEDS ORDERED: POTASSIUM CHLORIDE ER 20 MEQ TAB.ER PO SCH (14:00)
[2021-05-30 16:51] LABS: Glucose,Whole Blood 266 mg/dL (75-99)
[2021-05-30] MEDS: MAGNESIUM SULFATE-D5W PMX 1 GM in DEXTROSE/WATER 1 100ML.BAG IVPB SCH ×2 (17:56→21:50)
[2021-05-30 21:02] LABS: Glucose,Whole Blood 301 mg/dL (75-99)
[2021-05-30 21:37] VITALS: TEMP 98.1
[2021-05-30] MEDS: ATORVASTATIN 80 MG TAB PO SCH (21:42)
[2021-05-30] MEDS: PARoxetine 20 MG TAB PO SCH (21:43)
[2021-05-31] MEDS: HEPARIN SODIUM,PORCINE/PF 5,000 UNIT/0.5 ML SYRINGE SQ SCH ×2 (00:52→08:42)
[2021-05-31 04:38] VITALS: RESP 16
[2021-05-31] MEDS: FUROSEMIDE 10 MG/ML 4 ML VIAL IV SCH ×2 (04:41→08:42)
[2021-05-31] MEDS: LEVOTHYROXINE 50 MCG TAB PO SCH (06:28)
[2021-05-31] MEDS: INSULIN ASPART (NovoLOG) 100 UNIT/ML VIAL SQ SCH ×2 (06:28→12:43)
[2021-05-31] MEDS: PANTOPRAZOLE 40 MG TABLET PO SCH (06:28)
[2021-05-31 06:33] LABS: Glucose,Whole Blood 322 mg/dL (75-99)
[2021-05-31] MEDS: METOPROLOL TARTRATE 50 MG TAB PO SCH (08:42)
[2021-05-31] MEDS: ASPIRIN 325 MG TAB PO SCH (08:42)
[2021-05-31] MEDS: ISOSORBIDE MONONITRATE ER 30 MG TAB.ER.24H PO SCH (08:42)
[2021-05-31] MEDS: CLOPIDOGREL 75 MG TAB PO SCH (08:42)
[2021-05-31 09:03] LABS: Basophils # (A) 0.1 k/uL (0-0.2); Basophils % (A) 1 %; Eosinophils # (A) 0.2 k/uL (0-0.7); Eosinophils % (A) 2 %; HGB 14.6 gm/dL (11.4-16.0); Hypochromasia Slight; Lymphocytes # (A) 1.5 k/uL (1.0-4.8); Lymphocytes % (A) 20 %; MCH 28.8 pg (25.0-35.0); MCHC 31.7 g/dL (31.0-37.0); MCV 90.9 fL (80.0-100.0); Mean Platelet Volume 7.6; Monocytes # (A) 0.5 k/uL (0-1.0); Monocytes % (A) 6 %; Neutrophils % (A) 69 %; Platelet Count 188 k/uL (150-450); RBC 5.05 m/uL (3.80-5.40); RDW 13.6 % (11.5-15.5); WBC 7.3 k/uL (3.8-10.6)
[2021-05-31 09:08] LABS: Albumin 4.1 g/dL (3.5-5.0); Calcium 9.3 mg/dL (8.4-10.2); Magnesium 1.9 mg/dL (1.6-2.3); Potassium 3.7 mmol/L (3.5-5.1); Total Bilirubin 1.1 mg/dL (0.2-1.3); Total Protein 6.7 g/dL (6.3-8.2)
--- NOTE | 2021-05-31 10:04 | P.PN ---
Subjective HISTORY OF PRESENTING ILLNESS This is a pleasant 66-year-old with past medical history significant for coronary artery disease status post CABG 2016, hypertension, diabetes mellitus type 2, preserved ejection fraction. She follows in the office with Dr Parish. She states she has been doing fairly well up until yesterday when she started feeling increased dyspnea and shortness breath and was having a harder time breathing. She was struggling to breathe and therefore started having chest discomfort when she took a deep breath and. She felt like this was related to her struggling to breathe. She presented to emergency department and had a CTA performed which showed no pulmonary embolism however findings consistent with heart failure. She was noted to have a elevated proBNP, normal kidney function, minimally elevated AST and ALTs and normal troponins 3. She admits that with her prior bypass and was more dyspnea on exertion and actually not much chest pain. She admits that with [place] she was not eating well and eating [place] and more salty food that her family members have made including leftovers and believes this likely had something to do with it. She received IV Lasix with increased urine output and has been feeling much better compared to yesterday. 1/2 Patient seen and examined. Patient denies any chest pain or pressure. States her breathing is much better. She has been maintained on Lasix 3 times a day wi th good urine output. Creatinine remains stable. She feels closer baseline. PHYSICAL EXAMINATION Vital signs reviewed. CONSTITUTIONAL: No apparent distress. HEENT: Head is normocephalic. Pupils are equal, round. Sclerae anicteric. Mucous membranes of the mouth are moist. No JVD. No carotid bruit. CHEST EXAMINATION: Mild crackles at bases HEART EXAMINATION: Regular rate and rhythm. S1, S2 heard. No murmurs, gallops or rub. ABDOMEN: Soft, nontender. Positive bowel sounds. EXTREMITIES: 2+ peripheral pulses, no lower extremity edema and no calf tenderness. NEUROLOGIC EXAMINATION: Patient is awake, alert and oriented x3. ASSESSMENT 1. Acute on chronic diastolic heart failure 2. Coronary artery disease with prior history of CABG and PCI 3. atypical chest pain worse with inspiration and appears more musculoskeletal, do not suspect acute coronary syndrome 4. Hypertension 5. Hyperlipidemia PLAN Patient appears stable for discharge home on current vent however would place patient on home Lasix at least for one week and monitor response. May de- escalate in the office in 1 week however home with Lasix 40 mg daily.. Objective - Vital Signs Vital signs: Vital Signs Temp 98.1 F 05/31/21 04:00 Pulse 63 05/31/21 08:00 Resp 16 05/31/21 08:00 BP 135/60 05/31/21 08:00 Pulse Ox 94 L 05/31/21 08:00 Intake & Output 05/30/21 05/31/21 05/31/21 18:59 06:59 18:59 Intake Total 1580 10 240 Output Total 1650 1400 Balance -70 -1390 240 Weight 90.718 kg 99.4 kg Intake: IV 10 Invasive Line 2 10 Oral 1580 240 Output: Urine 1650 1400 Other: Voiding Method Toilet # Voids 1 - Labs CBC & Chem 7: 05/31/21 08:44 05/31/21 08:44 Labs: Abnormal Lab Results - Last 24 Hours (Table) 05/30/21 05/30/21 05/30/21 Range/Units 09:23 11:58 16:49 Chloride 97 L (98-107) mmol/L BUN (7-17) mg/dL Glucose 405 H (74-99) mg/dL POC Glucose (mg/dL) 365 H 266 H (75-99) mg/dL 05/30/21 05/31/21 05/31/21 Range/Units 20:19 06:09 08:44 Chloride 97 L (98-107) mmol/L BUN 19 H (7-17) mg/dL Glucose 406 H (74-99) mg/dL POC Glucose (mg/dL) 301 H 322 H (75-99) mg/dL
[2021-05-31 11:49] LABS: Glucose,Whole Blood 343 mg/dL (75-99)
[2021-05-31 12:45] VITALS: BP 152/71; PULSE 64
--- NOTE | 2021-05-31 13:03 | P.DS ---
Providers Date of admission: 05/29/21 12:44 mild acute CHF exacerbation with exertional dyspnea , rule out ACS trops negative X 3 EKG lateral T wave inversion cardiology eval resume cardiac meds supportive care IV diuresis daily weight fluid restriction to 2 L cardiac diet resume cardiac meds, aspirin, statin Overall condition of the patient improving continue to have swelling in the lower extremities and shortness breath but improving laparotomy Head and curetted hyperglycemia DM insulin sliding scale check A1C chronic conditions hypothyroid , resume home meds hyperlipidemia , resume statin h/o CAD s/p CABG 5 years ago h/o breast cancer Patient admitted to the hospital for shortness of breath and volume Overall the condition of the patient improved on IV Lasix Patient will be discharged home on by mouth Lasix pop with cardiology as an outpatient Constitutional: No acute distress, conversant, pleasant Eyes: Anicteric sclerae, moist conjunctiva, no lid-lag PERRLA ENMT: NC/AT Oropharynx clear, no erythema, exudates Neck: Supple, FROM, no masses, or JVD No carotid bruits No thyromegaly Lungs: Clear to auscultation Clear to percussion Normal respiratory effort, no accessory muscle use Cardiovascular: Heart regular in rate and rhythm, No murmurs, gallops, or rubs No peripheral edema Abdominal: Soft Nontender, no guarding, rebound or rigidity Abdomen moving with respiration Normoactive bowel sounds No hepatomegaly, No splenomegaly No palpable mass No abdominal wall hernia noted Skin: Normal temperature, tone, texture, turgor No induration No subcutaneous nodules No rash, lesions No ulcers Extremities: No digital cyanosis No clubbing Pedal pulses intact and symmetrical Radial pulses intact and symmetrical Normal gait and station No calf tenderness Psychiatric:Alert and oriented to person, place and time Appropriate affect Intact judgement Neuro: Muscles Strength 5/5 in all 4 extremities Sensation to light touch grossly present throughout Cranial nerves II-XII grossly intact No focal sensory deficits Attending physician: Cecilia Pacheco DO Consults: 05/29/21 12:42 Consult Physician Routine Consulting Provider: Vicente Stephens Consult Reason/Comments: chf Do you want consulting provider notified?: Yes Primary care physician: Maryellen Souza MD Plan - Discharge Summary Discharge Rx Participant: No New Discharge Prescriptions: New Furosemide [Lasix] 40 mg PO DAILY 30 Days #30 tablet Continue Levothyroxine Sodium [Synthroid] 50 mcg PO DAILY Atorvastatin [Lipitor] 80 mg PO HS #30 tab Metoprolol Tartrate [Lopressor] 50 mg PO BID Clopidogrel [Plavix] 75 mg PO DAILY PARoxetine [Paxil] 20 mg PO HS Ubidecarenone [Co Q-10] 300 mg PO HS Cholecalciferol [Vitamin D3 (25 Mcg = 1000 Iu)] 25 mcg PO DAILY Isosorbide Mononitrate ER [Imdur] 30 mg PO DAILY Aspirin EC [Ecotrin Low Dose] 81 mg PO DAILY Alendronate Sodium [Fosamax] 35 mg PO FULLER Insulin Regular, Human [NovoLIN R] 0.01 unit SQ CONTINUOUS Pantoprazole [Protonix] 40 mg PO BID Discharge Medication List Levothyroxine Sodium [Synthroid] 50 mcg PO DAILY 03/20/14 [History] Atorvastatin [Lipitor] 80 mg PO HS #30 tab 09/13/15 [Rx] Clopidogrel [Plavix] 75 mg PO DAILY 11/20/15 [History] Metoprolol Tartrate [Lopressor] 50 mg PO BID 11/20/15 [History] PARoxetine [Paxil] 20 mg PO HS 11/20/15 [History] Cholecalciferol [Vitamin D3 (25 Mcg = 1000 Iu)] 25 mcg PO DAILY 05/16/20 [History] Ubidecarenone [Co Q-10] 300 mg PO HS 05/16/20 [History] Alendronate Sodium [Fosamax] 35 mg PO FULLER 05/29/21 [History] Aspirin EC [Ecotrin Low Dose] 81 mg PO DAILY 05/29/21 [History] Insulin Regular, Human [NovoLIN R] 0.01 unit SQ CONTINUOUS 05/29/21 [History] Isosorbide Mononitrate ER [Imdur] 30 mg PO DAILY 05/29/21 [History] Pantoprazole [Protonix] 40 mg PO BID 05/29/21 [History] Furosemide [Lasix] 40 mg PO DAILY 30 Days #30 tablet 05/31/21 [Rx] Follow up Appointment(s)/Referral(s): Maryellen Souza MD [Primary Care Provider] - 1-2 days Discharge Disposition: HOME SELF-CARE
== END 2021-05-31 14:05 | disposition home or self-care (01) ==
LOC: EC 09:24 → UNDOADMIN 12:44 → 3SCARD 12:44
PROVIDERS: ADMIT Internal Medicine; ATTEND Internal Medicine
DX: I11.0 Hypertensive heart disease with heart failure (principal); I50.33 Acute on chronic diastolic (congestive) heart failure; E11.65 Type 2 diabetes mellitus with hyperglycemia; E03.9 Hypothyroidism, unspecified; I25.10 Atherosclerotic heart disease of native coronary artery without angina pectoris; R79.89 Other specified abnormal findings of blood chemistry; J45.909 Unspecified asthma, uncomplicated; D64.9 Anemia, unspecified; E78.5 Hyperlipidemia, unspecified; E04.9 Nontoxic goiter, unspecified; I25.2 Old myocardial infarction; E66.9 Obesity, unspecified; Z68.41 Body mass index [BMI] 40.0-44.9, adult; Z20.822 Contact with and (suspected) exposure to COVID-19; Z79.82 Long term (current) use of aspirin; Z79.83 Long term (current) use of bisphosphonates; Z79.02 Long term (current) use of antithrombotics/antiplatelets; Z79.890 Hormone replacement therapy; Z79.4 Long term (current) use of insulin; Z79.899 Other long term (current) drug therapy; Z88.8 Allergy status to other drugs, medicaments and biological substances; Z91.048 Other nonmedicinal substance allergy status; Z95.1 Presence of aortocoronary bypass graft; Z85.3 Personal history of malignant neoplasm of breast; Z96.41 Presence of insulin pump (external) (internal); Z87.442 Personal history of urinary calculi; Z86.711 Personal history of pulmonary embolism; Z86.718 Personal history of other venous thrombosis and embolism; Z87.01 Personal history of pneumonia (recurrent); Z92.3 Personal history of irradiation; Z98.42 Cataract extraction status, left eye; Z98.41 Cataract extraction status, right eye; Z96.1 Presence of intraocular lens; Z87.19 Personal history of other diseases of the digestive system; Z87.39 Personal history of other diseases of the musculoskeletal system and connective tissue; Z90.710 Acquired absence of both cervix and uterus; Z95.5 Presence of coronary angioplasty implant and graft; Z87.891 Personal history of nicotine dependence; Z98.890 Other specified postprocedural states; Z80.49 Family history of malignant neoplasm of other genital organs; Z82.49 Family history of ischemic heart disease and other diseases of the circulatory system; Z83.49 Family history of other endocrine, nutritional and metabolic diseases
CPT/HCPCS: 96376 ×3; 96365; 96366; 96372 ×2; 96375; 99285; 36415; 93005; 85379; 83880; 80053 ×2; 80048; 82150; 83690; 83735 ×3; 84484; 85025 ×2; 85610; 85730; 87635; 71046; 71275; G0378 ×3; J1940 ×3; J3475; Q9967; J1644 ×2

== ENCOUNTER → 2021-11-10 | Outpatient (CLI) | payer MEDICARE ==
[2021-11-10 18:23] LABS: HDL Cholesterol 36.7 mg/dL (40.00-60.00)
[2021-11-10 18:41] LABS: Chol/HDL Ratio 4.71 Ratio; LDL Cholesterol,Direct Reflex 64.9 mg/dL (0.00-129.00)
== END | disposition home or self-care (01) ==
LOC: LABWHC1 11:44
PROVIDERS: ATTEND Family Medicine
DX: E78.5 Hyperlipidemia, unspecified (principal); E21.3 Hyperparathyroidism, unspecified
CPT/HCPCS: 36415; 80061; 83721; 83970

== ENCOUNTER → 2023-02-17 | Outpatient (CLI) | payer MEDICARE ==
[2023-02-18 01:48] LABS: HCT 46.9 % (37.2-46.3); HGB 14.3 d/dL (12.0-15.0); MCHC 30.5 d/dL (32.0-37.0); MCV 82.1 FL (80.0-97.0); Mean Platelet Volume 11.1 FL (9.5-12.2); NRBC Per 100 WBC 0 X 10*3/uL (0.00-0.01); Platelet Count 207 X 10*3/uL (140-440); RBC 5.71 X 10*6/uL (4.10-5.20); RDW 16.7 % (11.5-14.5); WBC 7.01 X 10*3/uL (4.50-10.00)
[2023-02-18 02:12] LABS: Blood Urea Nitrogen 12.5 mg/dL (9.0-27.0); Carbon Dioxide 23.5 mmol/L (21.6-31.8); Chloride 105 mmol/L (96-109); Potassium 4.2 mmol/L (3.5-5.5); Sodium 142 mmol/L (135-145)
== END | disposition home or self-care (01) ==
LOC: LABPAT 16:02
PROVIDERS: ATTEND Internal Medicine Interventional Cardiology
DX: Z01.812 Encounter for preprocedural laboratory examination (principal); I25.10 Atherosclerotic heart disease of native coronary artery without angina pectoris
CPT/HCPCS: 36415; 80051; 82565; 84520; 85027

== ENCOUNTER 2023-03-02 09:18 | Day surgery (SDC) | payer MEDICARE ==
[~2023-03-02 09:18] MED LIST changes: +ALPRAZolam 0.25 MG TAB PO PRN; +ALPRAZolam 0.5 MG TAB PO PRN; +ASPIRIN 325 MG TAB PO STA; +ATORVASTATIN 80 MG TAB PO STA; +HEPARIN SODIUM,PORCINE (1 ML) 2,500 UNIT in SODIUM CHLORIDE 0.9% 250 ML IRRIGATION PRN; +HEPARIN SODIUM,PORCINE 10,000 UNIT in SODIUM CHLORIDE 0.9% 1,000 ML IRRIGATION PRN; -LACTATED RINGERS 1,000 ML IV SCH; -LIDOCAINE 1% (10MG/ML) FOR IV START INTRADERMA PRN; +NITROGLYCERIN SL TABS 0.4 MG TAB SUBLINGUAL PRN; +SODIUM CHLORIDE 0.9% 1,000 ML in EMPTY BAG 1 BAG IV SCH
[2023-03-02 10:06] LABS: Glucose,Whole Blood 231 mg/dL (70-110)
[2023-03-02] MEDS ORDERED: INSULIN ASPART (NovoLOG) 100 UNIT/ML VIAL SQ ONE (10:07)
[2023-03-02 10:43] LABS: African American GFR (CKD) >90 (>60 ml/min/1.73 sqM); Anion Gap 10 mmol/L; Blood Urea Nitrogen 23 mg/dL (7-17); Calcium 9.4 mg/dL (8.4-10.2); Carbon Dioxide 24 mmol/L (22-30); Chloride 103 mmol/L (98-107); Glucose 227 mg/dL (74-99); Non-African American GFR(CKD) >90 (>60 ml/min/1.73 sqM); Sodium 137 mmol/L (137-145)
[2023-03-02] MEDS ORDERED: IV FLUID CONTINUATION 1,000 ML IV ONE (10:48)
[2023-03-02 10:49] LABS: Potassium 5.9 mmol/L (3.5-5.1)
[2023-03-02] MEDS ORDERED: HEPARIN SODIUM 1,000 UN/ML (10ML VL) ONE (11:13)
[2023-03-02] MEDS ORDERED: LIDOCAINE 1% INJ 10MG/ML (5 ML VIAL-PF) SQ ONE (11:24)
[2023-03-02] MEDS ORDERED: LIDOCAINE 2% (PF) 20 MG/ML 5 ML VIAL SQ ONE (11:24)
[2023-03-02] MEDS ORDERED: MIDAZOLAM 2 MG/2 ML VIAL IVP ONE (11:27)
[2023-03-02] MEDS ORDERED: HEPARIN SODIUM 1,000 UN/ML (10ML VL) IVP ONE (11:31)
[2023-03-02] MEDS ORDERED: NITROGLYCERIN 1000MCG/10ML SYRINGE INTRAARTER ONE (11:32)
[2023-03-02] MEDS ORDERED: VERAPAMIL SYRINGE (5 MG/10 ML) INTRAARTER ONE (11:32)
[2023-03-02] MEDS ORDERED: IOPAMIDOL-370 100ML BTL INJ ONE (11:36)
[2023-03-02] MEDS ORDERED: RX INFO: IV CONTRAST WAS GIVEN 1 EACH MISC MISCELLANE PRN (11:59)
[2023-03-02] MEDS ORDERED: SODIUM CHLORIDE 0.9% 1,000 ML IV SCH (12:00)
--- NOTE | 2023-03-02 12:05 | P.PCN ---
Date of Procedure: 03/02/23 Operative Findings: Cardiac Procedure Performing physician Alec Parish M.D. Procedure performed 1. Left subclavian angiogram 2. Left internal mammary artery angiogram 3. Ultrasound-guided access of the left radial artery Indication This is a 67-year-old female patient with CAD status post CABG who was diagnosed recently with cardiomyopathy and she underwent a heart catheterization and that revealed severe triple vessel CAD with occlusion of all bypasses with only patent SVG to left circumflex. She underwent a left subclavian angiogram at that point and that showed occluded left subclavian. She was brought today to undergo an VAZQUEZ angiogram and assess if the VAZQUEZ is patent the patient might benefit from opening her left subclavian artery. Approach Left radial artery Complication None Level of sedation Moderate sedation length of 15 minutes Procedure description After obtaining an informed consent the patient was brought to the cardiac culture media laboratory assistant. The left radial artery was cannulated using micropuncture technique under ultrasound guidance and the micropuncture wire passed easily then I placed a 6- Yoruba sheath at the left radial artery. After that I give the patient 2 mg of verapamil intra-arterial and a total of 5000 units of heparin intravenous. I did left subclavian angiogram and VAZQUEZ angiogram using an IM catheter. The procedure was completed was no complication Left subclavian and VAZQUEZ angiogram The left subclavian is occluded by the ostium. It fills by retrograde flow from the left vertebral artery The VAZQUEZ to LAD is occluded Conclusion Occluded VAZQUEZ to LAD Occluded left subclavian artery Postprocedure management The patient will be evaluated to undergo PTCA and stenting of the LAD
[2023-03-02 13:21] VITALS: RESP 16
[2023-03-02 17:01] VITALS: BP 147/67; PULSE 67
== END 2023-03-02 16:40 | disposition home or self-care (01) ==
LOC: UNDOADMIN 09:18 → 2ORMAIN 09:18 → OR 09:18 → EDSTATUS 11:35 → OR 16:40 → UNDODISIN 16:40
PROVIDERS: ATTEND Internal Medicine Interventional Cardiology
DX: I25.10 Atherosclerotic heart disease of native coronary artery without angina pectoris (principal); I10 Essential (primary) hypertension; E78.5 Hyperlipidemia, unspecified; E11.9 Type 2 diabetes mellitus without complications; I38 Endocarditis, valve unspecified; F17.210 Nicotine dependence, cigarettes, uncomplicated; I73.9 Peripheral vascular disease, unspecified; Z82.49 Family history of ischemic heart disease and other diseases of the circulatory system; Z95.1 Presence of aortocoronary bypass graft; Z79.899 Other long term (current) drug therapy; Z79.82 Long term (current) use of aspirin
CPT/HCPCS: 36215; 75710; 80048; C1769; C1894; J2250; J1644; Q9967; J2001; J2305

== ENCOUNTER 2023-04-29 16:18 | Inpatient (IN) | payer MEDICARE ==
[2023-04-29] MEDS ORDERED: FUROSEMIDE 10 MG/ML 4 ML VIAL IV STA (17:13)
[2023-04-29] MEDS ORDERED: NITROGLYCERIN OINT 1 INCH/GM PACKET TOPICAL STA (17:14)
--- NOTE | 2023-04-29 17:18 | ED ---
SOB HPI - General Chief Complaint: Shortness of Breath Stated Complaint: CHF, SKYLER-sent by pcp for admit Source: patient Mode of arrival: ambulatory Limitations: no limitations - History of Present Illness Initial Comments: 's patient is a 68-year-old woman who presents with complaint of shortness of breath with exertion. She has also noted bilateral lower leg swelling. Patient states that she is currently seeing cardiology and they are trying to set her up to have a procedure, but she has become more short of breath over the past few days and so she went to the clinic. She was forwarded here from the clinic. Patient has not had fevers or chills. No chest pain. There is a little bit of cough with some clear sputum. No change in urination or bowel movements. MD Complaint: shortness of breath -: days(s) Consistency: constant Improves With: upright position Worsens With: lying flat, exertion Treatments Prior to Arrival: none - Related Data Home Oxygen Therapy: No Home Medications Medication Instructions Recorded Confirmed Levothyroxine Sodium [Synthroid] 50 mcg PO DAILY 03/20/14 04/29/23 Clopidogrel [Plavix] 75 mg PO DAILY 11/20/15 04/29/23 Metoprolol Tartrate [Lopressor] 50 mg PO BID 11/20/15 04/29/23 PARoxetine [Paxil] 20 mg PO HS 11/20/15 04/29/23 Cholecalciferol [Vitamin D3 (25 25 mcg PO DAILY 05/16/20 04/29/23 Mcg = 1000 Iu)] Ubidecarenone [Co Q-10] 300 mg PO HS 05/16/20 04/29/23 Alendronate Sodium [Fosamax] 35 mg PO FULLER 05/29/21 04/29/23 Pantoprazole [Protonix] 40 mg PO BID 05/29/21 04/29/23 Ranolazine [Ranexa] 500 mg PO BID 02/17/23 04/29/23 Dapagliflozin Propanediol [Farxiga] 5 mg PO DAILY 04/29/23 04/29/23 Insulin Aspart (For Pump) [NovoLOG 0.01 unit SQ-PUMP CONTINUOUS 04/29/23 04/29/23 (For Pump)] amLODIPine [Norvasc] 5 mg PO DAILY 04/29/23 04/29/23 Previous Rx's Medication Instructions Recorded Atorvastatin [Lipitor] 80 mg PO HS #30 tab 09/13/15 Aspirin 81 mg PO DAILY tab 05/03/23 Furosemide [Lasix] 40 mg PO BID #60 tablet 05/03/23 Isosorbide Mononitrate ER [Imdur] 30 mg PO DAILY #30 tab 05/03/23 Spironolactone [Aldactone] 25 mg PO DAILY #30 tab 05/03/23 Allergies Allergy/AdvReac Type Severity Reaction Status Date / Time HILARY Inhibitors Allergy Severe Anaphylaxis Verified 02/28/23 14:38 mold Allergy Allergy Verified 02/28/23 14:38 Test ezetimibe [From Zetia] AdvReac Leg pain Verified 02/28/23 14:38 Review of Systems ROS Statement: Those systems with pertinent positive or pertinent negative responses have been documented in the HPI. ROS Other: All systems not noted in ROS Statement are negative. Constitutional: Denies: fever, chills, weakness Respiratory: Reports: cough, dyspnea. Denies: wheezes, hemoptysis, stridor Cardiovascular: Reports: orthopnea, edema. Denies: chest pain, palpitations, syncope Gastrointestinal: Denies: abdominal pain, nausea, vomiting, diarrhea, melena, hematochezia Genitourinary: Denies: dysuria, hematuria Musculoskeletal: Denies: back pain Skin: Denies: rash Neurological: Denies: headache, weakness, numbness Past Medical History Past Medical History: Asthma, Coronary Artery Disease (CAD), Cancer, Chest Pain / Angina, Heart Failure, Diabetes Mellitus, Deep Vein Thrombosis (DVT), GI Bleed, Hyperlipidemia, Hypertension, Myocardial Infarction ([place]), Pneumonia, Pulmonary Embolus (PE), Renal Disease, Thyroid Disorder, Vascular Disorder Additional Past Medical History / Comment(s): Pleurisy, 07-25-15 NSTEMI, goiter, L breast ca with lumpectomy and 33 radiation tx in 1999, frozen shoulders/no longer a problem, heart murmur, IDDM-insulin pump, nephrolithiasis bilaterally with surgery-still has some stones in R kidney, hypothyrioidism, unsure if PE was bilateral or unilateral, 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 09/12 StentsX2-coronary arteries Past Anesthesia/Blood Transfusion Reactions: Previous Problems w/ Anesthesia, Family History of Problems w/ Anesthesia Additional Past Anesthesia/Blood Transfusion Reaction / Comment(s): " I wake up during surgery", sister "heart stopped one time on the table" Date of Last Stent Placement:: 08/2015 Past Psychological History: No Psychological Hx Reported Smoking Status: Former smoker - Past Family History Mother Family Medical History: Cancer, Coronary Artery Disease (CAD), Deep Vein Thrombosis (DVT) Additional Family Medical History / Comment(s): uterine CA Father Family Medical History: Coronary Artery Disease (CAD), Hyperlipidemia Brother(s) Family Medical History: Cancer Sister(s) Family Medical History: Cancer General Exam Limitations: no limitations General appearance: alert, in no apparent distress Head exam: Present: atraumatic, normocephalic Eye exam: Present: normal appearance. Absent: scleral icterus, conjunctival injection Neck exam: Present: normal inspection Respiratory exam: Present: wheezes, rales, rhonchi. Absent: respiratory dis tress, stridor, accessory muscle use, decreased breath sounds Cardiovascular Exam: Present: regular rate, normal rhythm, systolic murmur. Absent: diastolic murmur, rubs, gallop GI/Abdominal exam: Present: soft. Absent: distended, tenderness, guarding, rebound, rigid, mass Extremities exam: Present: normal inspection, normal capillary refill, pedal edema. Absent: calf tenderness Back exam: Present: normal inspection. Absent: CVA tenderness (R), CVA tenderness (L) Neurological exam: Present: alert Skin exam: Present: warm, dry, intact, normal color. Absent: rash Course Vital Signs 04/29/23 04/29/23 16:54 21:41 Temperature 98.6 F 98.0 F Pulse Rate 56 L 55 L Respiratory 16 18 Rate Blood Pressure 137/71 140/63 O2 Sat by Pulse 90 L 94 L Oximetry Medical Decision Making - Medical Decision Making The patient had chest x-ray which I interpreted as showing element of congestive heart failure Was pt. sent in by a medical professional or institution ([facility], [employer], urgent care, hospital, or skilled nursing...) When possible be specific @ -Yes patient directed here from clinic Did you speak to anyone other than the patient for history (EMS, parent, family, police, friend...)? What history was obtained from this source @ -[No] Did you review nursing and triage notes (agree or disagree)? Why? @ -[I reviewed and agree with nursing and triage notes] Were old charts reviewed (outside hosp., previous admission, EMS record, old EKG, old radiological studies, urgent care reports/EKG's, skilled nursing records)? Report findings @ -[No old charts were reviewed] Differential Diagnosis (chest pain, altered mental status, abdominal pain women, abdominal pain men, vaginal bleeding, weakness, fever, dyspnea, syncope, headache, dizziness, GI bleed, back pain, seizure, CVA, palpatations, mental health, musculoskeletal)? @ -[Differential Dyspnea: Coronary syndrome, arrhythmia, tamponade, asthma, COPD, pulmonary embolism, pneumonia, pneumothorax, pulmonary effusion, anaphylaxis, diabetic ketoacidosis, flailed chest, pulmonary contusion, diaphragmatic rupture, anemia, neuromuscular, this is not meant to be an all-inclusive list. EKG interpreted by me (3pts min.). @ -[I interpreted As above] X-rays interpreted by me (1pt min.). @ -[I interpreted as above CT interpreted by me (1pt min.). @ -[None done] U/S interpreted by me (1pt. min.). @ -[None done] What testing was considered but not performed or refused? (CT, X-rays, U/S, labs)? Why? @ -[None] What meds were considered but not given or refused? Why? @ -[None] Did you discuss the management of the patient with other professionals (professionals i.e. [facility], [employer], lab, RT, psych nurse, high school social science teacher, comic artist, teacher, chief scientific officer, corrections caseworker)? Give summary @ -[No] Was smoking cessation discussed for >3mins.? @ -[No] Was critical care preformed (if so, how long)? @ -[No] Were there social determinants of health that impacted care today? How? (Homelessness, low income, unemployed, alcoholism, drug addiction, transportation, low edu. Level, literacy, decrease access to med. care, shelter, rehab)? @ -[No] Was there de-escalation of care discussed even if they declined (Discuss DNR or withdrawal of care, Hospice)? DNR status @ -[No] What co-morbidities impacted this encounter? (DM, HTN, Smoking, COPD, CAD, Cancer, CVA, ARF, Chemo, Hep., AIDS, mental health diagnosis, sleep apnea, morbid obesity)? @ -History of coronary artery disease and hypertension Was patient admitted / discharged? Hospital course, mention meds given and route, prescriptions, significant lab abnormalities, going to OR and other pertinent info. @ -[This patient is 68-year-old woman presenting with dyspnea. The clinical picture on the labs are light with congestive heart failure and the patient be admitted to have further evaluation and treatment Undiagnosed new problem with uncertain prognosis? @ -[No] Drug Therapy requiring intensive monitoring for toxicity (Heparin, Nitro, Insulin, Cardizem)? @ -[No] Were any procedures done? @ -[No] Diagnosis/symptom? @ -acute exacerbation of congestive heart failure Acute, or Chronic, or Acute on Chronic? @ -[Acute on chronic Uncomplicated (without systemic symptoms) or Complicated (systemic symptoms)? @ -[Complicated by dyspnea Side effects of treatment? @ -[No] Exacerbation, Progression, or Severe Exacerbation? @ -[No] Poses a threat to life or bodily function? How? (Chest pain, USA, MT, pneumonia, PE, COPD, DKA, ARF, appy, cholecystitis, CVA, Diverticulitis, Homicidal, Suicidal, threat to staff... and all critical care pts) @ -[No] - Lab Data Result diagrams: 04/29/23 17:20 05/03/23 05:44 Lab Results 04/29/23 04/29/23 04/29/23 Range/Units 17:20 17:20 17:20 WBC 7.4 (3.8-10.6) k/uL RBC 5.20 (3.80-5.40) m/uL Hgb 14.0 (11.4-16.0) gm/dL Hct 43.1 (34.0-46.0) % MCV 82.9 (80.0-100.0) fL MCH 26.9 (25.0-35.0) pg MCHC 32.4 (31.0-37.0) g/dL RDW 16.8 H (11.5-15.5) % Plt Count 207 (150-450) k/uL MPV 8.2 Neutrophils % 70 % Lymphocytes % 20 % Monocytes % 6 % Eosinophils % 2 % Basophils % 1 % Neutrophils # 5.2 (1.3-7.7) k/uL Lymphocytes # 1.5 (1.0-4.8) k/uL Monocytes # 0.4 (0-1.0) k/uL Eosinophils # 0.2 (0-0.7) k/uL Basophils # 0.1 (0-0.2) k/uL Hypochromasia Slight Anisocytosis Slight PT 11.4 (10.0-12.5) sec INR 1.0 (<1.2) APTT 25.0 (22.0-30.0) sec Sodium 139 (137-145) mmol/L Potassium 4.2 (3.5-5.1) mmol/L Chloride 105 (98-107) mmol/L Carbon Dioxide 23 (22-30) mmol/L Anion Gap 11 mmol/L BUN 15 (7-17) mg/dL Creatinine 0.73 (0.52-1.04) mg/dL Est GFR (CKD-EPI)AfAm >90 (>60 ml/min/1.73 sqM) Est GFR (CKD-EPI)NonAf 84 (>60 ml/min/1.73 sqM) Glucose 101 H (74-99) mg/dL Plasma Lactic Acid Peng (0.7-2.0) mmol/L Calcium 9.0 (8.4-10.2) mg/dL Magnesium 1.9 (1.6-2.3) mg/dL Total Bilirubin 1.0 (0.2-1.3) mg/dL AST 33 (14-36) U/L ALT 31 (4-34) U/L Alkaline Phosphatase 87 (38-126) U/L Troponin I (0.000-0.034) ng/mL NT-Pro-B Natriuret Pep pg/mL Total Protein 6.6 (6.3-8.2) g/dL Albumin 3.9 (3.5-5.0) g/dL 04/29/23 04/29/23 04/29/23 Range/Units 17:20 17:20 17:58 WBC (3.8-10.6) k/uL RBC (3.80-5.40) m/uL Hgb (11.4-16.0) gm/dL Hct (34.0-46.0) % MCV (80.0-100.0) fL MCH (25.0-35.0) pg MCHC (31.0-37.0) g/dL RDW (11.5-15.5) % Plt Count (150-450) k/uL MPV Neutrophils % % Lymphocytes % % Monocytes % % Eosinophils % % Basophils % % Neutrophils # (1.3-7.7) k/uL Lymphocytes # (1.0-4.8) k/uL Monocytes # (0-1.0) k/uL Eosinophils # (0-0.7) k/uL Basophils # (0-0.2) k/uL Hypochromasia Anisocytosis PT (10.0-12.5) sec INR (<1.2) APTT (22.0-30.0) sec Sodium (137-145) mmol/L Potassium (3.5-5.1) mmol/L Chloride (98-107) mmol/L Carbon Dioxide (22-30) mmol/L Anion Gap mmol/L BUN (7-17) mg/dL Creatinine (0.52-1.04) mg/dL Est GFR (CKD-EPI)AfAm (>60 ml/min/1.73 sqM) Est GFR (CKD-EPI)NonAf (>60 ml/min/1.73 sqM) Glucose (74-99) mg/dL Plasma Lactic Acid Peng 1.1 (0.7-2.0) mmol/L Calcium (8.4-10.2) mg/dL Magnesium (1.6-2.3) mg/dL Total Bilirubin (0.2-1.3) mg/dL AST (14-36) U/L ALT (4-34) U/L Alkaline Phosphatase (38-126) U/L Troponin I <0.012 (0.000-0.034) ng/mL NT-Pro-B Natriuret Pep 6620 pg/mL Total Protein (6.3-8.2) g/dL Albumin (3.5-5.0) g/dL - EKG Data -: EKG Interpreted by Me EKG shows normal: sinus rhythm, intervals (Normal), QRS complexes (Left anterior fascicular block. Possible old anterior MT) Rate: bradycardia (Rate 54 bpm) Disposition Clinical Impression: CHF (congestive heart failure) Disposition: ADMITTED IP TO THIS HOSP Condition: Stable Is patient prescribed a controlled substance at d/c from ED?: No
[2023-04-29 18:04] LABS: Anisocytosis Slight; Basophils # (A) 0.1 k/uL (0-0.2); Basophils % (A) 1 %; Eosinophils # (A) 0.2 k/uL (0-0.7); Eosinophils % (A) 2 %; HCT 43.1 % (34.0-46.0); Hypochromasia Slight; Lymphocytes # (A) 1.5 k/uL (1.0-4.8); Lymphocytes % (A) 20 %; MCH 26.9 pg (25.0-35.0); MCHC 32.4 g/dL (31.0-37.0); MCV 82.9 fL (80.0-100.0); Mean Platelet Volume 8.2; Monocytes # (A) 0.4 k/uL (0-1.0); Monocytes % (A) 6 %; Neutrophils # (A) 5.2 k/uL (1.3-7.7); Neutrophils % (A) 70 %; Platelet Count 207 k/uL (150-450); RDW 16.8 % (11.5-15.5); WBC 7.4 k/uL (3.8-10.6)
[2023-04-29 18:07] LABS: ALT 31 U/L (4-34); AST 33 U/L (14-36); African American GFR (CKD) >90 (>60 ml/min/1.73 sqM); Albumin 3.9 g/dL (3.5-5.0); Alkaline Phosphatase 87 U/L (38-126); Anion Gap 11 mmol/L; Blood Urea Nitrogen 15 mg/dL (7-17); Carbon Dioxide 23 mmol/L (22-30); Chloride 105 mmol/L (98-107); Glucose 101 mg/dL (74-99); Magnesium 1.9 mg/dL (1.6-2.3); Non-African American GFR(CKD) 84 (>60 ml/min/1.73 sqM); Potassium 4.2 mmol/L (3.5-5.1); Sodium 139 mmol/L (137-145); Total Protein 6.6 g/dL (6.3-8.2)
[2023-04-29 18:34] LABS: Prothrombin Time 11.4 sec (10.0-12.5)
--- NOTE | 2023-04-29 18:42 | XR ---
EXAMINATION TYPE: XR chest 2V DATE OF EXAM: 04/29/2023 COMPARISON: 05/29/2021, CT chest 02/16/2023 INDICATION: Difficulty breathing cough and congestion short of breath TECHNIQUE: Frontal and lateral views of the chest are obtained. FINDINGS: The heart size is prominent. The pulmonary vasculature is slightly prominent. Mild increased lung markings are at the lower lung ventura. Correlate for subsegmental atelectasis or volume overload.. There may be a pleural calcification along the left border. Corresponding abnormal ity not clearly identified on the recent CT. IMPRESSION: 1. Clinical correlation recommended for congestive heart failure. Some subsegmental atelectasis may b e at the lung bases. 2. Possible developing pleural calcification
[2023-04-29] MEDS: FUROSEMIDE 10 MG/ML 4 ML VIAL IV SCH (22:11)
[2023-04-29 23:25] LABS: Glucose,Whole Blood 111 mg/dL (70-110)
[2023-04-30] MEDS ORDERED: ONDANSETRON 4 MG/2 ML VIAL IVP PRN (00:21)
[2023-04-30] MEDS ORDERED: ALPRAZolam 0.25 MG TAB PO PRN (00:21)
[2023-04-30] MEDS ORDERED: MELATONIN 3 MG TABLET PO PRN (00:21)
[2023-04-30] MEDS ORDERED: ACETAMINOPHEN TAB 325 MG TAB PO PRN (00:21)
[2023-04-30] MEDS ORDERED: NALOXONE 0.4 MG/ML 1 ML VIAL IV PRN (00:21)
[2023-04-30] MEDS ORDERED: DEXTROSE 50% SYRINGE 50 ML IVP PRN ×2 (00:39)
--- NOTE | 2023-04-30 00:45 | P.HPIM ---
History of Present Illness H&P Date: 04/29/23 Chief Complaint: SOB 68-year-old female with diabetes mellitus on insulin pump, CHF , CAD s/p CABG Patient coming in upon recommendations of her primary care doctor for suspected pneumonia versus CHF 3 weeks ago she started having upper respiratory symptoms with dry cough fevers and chills associated with sore throat and shortness of breath upon exertion that Getting worse and worse. She was given a course of antibiotic with amoxicillin and Z-Miguel however she claims that she never felt better she kept getting worse and worse in about a week ago on Tuesday her doctor prescribe some Mucinex to help clear up some of the congestion in her chest however she noticed some increased swelling in her legs today she was at her doctor's office and he recommended that she comes to the hospital for evaluation of CHF versus pneumonia based on some changes on the Chest x-ray she reports worsening exertional dyspnea, orthopnea, and leg swelling. no recent changes in meds, no recent travel, denies current chest pain , nausea vomiting, fever, or chills. denies smoking, illicit drugs or alcohol she does report a history of blood clot 30 years ago review of systems Pertinent positives as noted in HPI. All other systems were reviewed and are negative on exam Constitutional: No acute distress, conversant, pleasant Eyes: Anicteric sclerae, moist conjunctiva, Pupils equal round reactive to light ENMT: NC/AT Oropharynx clear, no erythema, or exudates Neck: Supple, no masses, or JVD No carotid bruits No thyromegaly Lungs: decrease breath sounds at lung bases with rales Clear to percussion Normal respiratory effort, no accessory muscle use Cardiovascular: Heart regular in rate and rhythm, No murmurs, gallops, or rubs +2 bilateral peripheral leg edema Abdominal: Soft Nontender, no guarding, rebound or rigidity Abdomen moving with respiration Normoactive bowel sounds No hepatomegaly, No splenomegaly No palpable mass No abdominal wall hernia noted Extremities: No digital cyanosis No clubbing Pedal pulses intact and symmetrical Radial pulses intact and symmetrical No calf tenderness Psychiatric: Alert and oriented to person, place and time Appropriate affect fair judgement Neuro Muscles Strength 5/5 in all 4 extremities Sensation to light touch grossly present throughout Cranial nerves II-XII grossly intact Lymphatics: no palpable cervical or supraclavicular lymph nodes Past Medical History Past Medical History: Asthma, Coronary Artery Disease (CAD), Cancer, Chest Pain / Angina, Heart Failure, Diabetes Mellitus, Deep Vein Thrombosis (DVT), GI Bleed, Hyperlipidemia, Hypertension, Myocardial Infarction ([place]), Pneumonia, Pulmonary Embolus (PE), Renal Disease, Thyroid Disorder, Vascular Disorder Additional Past Medical History / Comment(s): Pleurisy, 07-25-15 NSTEMI, go iter, L breast ca with lumpectomy and 33 radiation tx in 1999, frozen shoulders/no longer a problem, heart murmur, IDDM-insulin pump, nephrolithiasis bilaterally with surgery-still has some stones in R kidney, hypothyrioidism, unsure if PE was bilateral or unilateral, 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 09/12 StentsX2-coronary arteries Past Anesthesia/Blood Transfusion Reactions: Previous Problems w/ Anesthesia, Family History of Problems w/ Anesthesia Additional Past Anesthesia/Blood Transfusion Reaction / Comment(s): " I wake up during surgery", sister "heart stopped one time on the table" Date of Last Stent Placement:: 08/2015 Past Psychological History: No Psychological Hx Reported Additional Psychological History / Comment(s): Pt resides alone. Smoking Status: Former smoker Past Alcohol Use History: None Reported Additional Past Alcohol Use History / Comment(s): started smoking age 14, smoked 1/2 PPD quit jun 2015 Past Drug Use History: None Reported - Past Family History Mother Family Medical History: Cancer, Coronary Artery Disease (CAD), Deep Vein Thrombosis (DVT) Additional Family Medical History / Comment(s): uterine CA Father Family Medical History: Coronary Artery Disease (CAD), Hyperlipidemia Brother(s) Family Medical History: Cancer Sister(s) Family Medical History: Cancer Medications and Allergies Home Medications Medication Instructions Recorded Confirmed Type Levothyroxine Sodium [Synthroid] 50 mcg PO DAILY 03/20/14 04/29/23 History Atorvastatin [Lipitor] 80 mg PO HS #30 tab 09/13/15 04/29/23 Rx Clopidogrel [Plavix] 75 mg PO DAILY 11/20/15 04/29/23 History Metoprolol Tartrate [Lopressor] 50 mg PO BID 11/20/15 04/29/23 History PARoxetine [Paxil] 20 mg PO HS 11/20/15 04/29/23 History Cholecalciferol [Vitamin D3 (25 25 mcg PO DAILY 05/16/20 04/29/23 History Mcg = 1000 Iu)] Ubidecarenone [Co Q-10] 300 mg PO HS 05/16/20 04/29/23 History Alendronate Sodium [Fosamax] 35 mg PO FULLER 05/29/21 04/29/23 History Pantoprazole [Protonix] 40 mg PO BID 05/29/21 04/29/23 History Aspirin 325 mg PO DAILY 02/17/23 04/29/23 History Furosemide [Lasix] 40 mg PO DAILY 02/17/23 04/29/23 History Ranolazine [Ranexa] 500 mg PO BID 02/17/23 04/29/23 History Dapagliflozin Propanediol [Farxiga] 5 mg PO DAILY 04/29/23 04/29/23 History Insulin Aspart (For Pump) [NovoLOG 0.01 unit SQ-PUMP CONTINUOUS 04/29/23 04/29/23 History (For Pump)] Isosorbide Mononitrate ER [Imdur] 60 mg PO DAILY 04/29/23 04/29/23 History amLODIPine [Norvasc] 5 mg PO DAILY 04/29/23 04/29/23 History Allergies Allergy/AdvReac Type Severity Reaction Status Date / Time HILARY Inhibitors Allergy Severe Anaphylaxis Verified 02/28/23 14:38 mold Allergy Allergy Verified 02/28/23 14:38 Test ezetimibe [From Zetia] AdvReac Leg pain Verified 02/28/23 14:38 Physical Exam Vitals: Vital Signs Temp Pulse Pulse Resp BP BP Pulse Ox 04/29/23 23:53 97.9 F 53 L 16 148/64 93 L 04/29/23 21:55 99 105/67 92 L 04/29/23 21:41 98.0 F 55 L 18 140/63 94 L 04/29/23 21:40 95 99/66 92 L 04/29/23 21:26 97 89/57 91 L 04/29/23 21:10 98.3 F 98 104/69 96 04/29/23 16:54 98.6 F 56 L 16 137/71 90 L Intake and Output 04/29/23 04/29/23 04/30/23 14:59 22:59 06:59 Other: Weight 85.275 kg Results CBC & Chem 7: 04/29/23 17:20 04/29/23 17:20 Labs: Abnormal Lab Results - Last 24 Hours (Table) 04/29/23 04/29/23 04/29/23 Range/Units 17:20 17:20 23:23 RDW 16.8 H (11.5-15.5) % Glucose 101 H (74-99) mg/dL POC Glucose (mg/dL) 111 H (70-110) mg/dL Thrombosis Risk Factor Assmnt - Choose All That Apply Each Factor Represents 1 point: Obesity (BMI >25) Thrombosis Risk Factor Assessment Total Risk Factor Score: 1 Thrombosis Risk Factor Assessment Level: Low Risk Assessment and Plan Assessment: 5-year-old female with CAD status post CABG, diabetes mellitus on insulin pump Coming in for 3 week history of upper respiratory symptoms with one-week history of progressive exertional dyspnea, orthopnea, swelling of the legs I discussed the case with the adductor accepted the admission for CHF exacerbation with anticipated length of stay more than 2 midnights acute on chronic diastolic chf exacerbation daily weight fluid restriction lasix IVP 40 mg BID cardiology consult echocardiogram trops negative elevated BNP 6620 CXR showed atelactesis lung bases resume im[facility]ur, [facility] s DM continue home insulin pump add insulin sliding scale medium scale check A1 c hypertension resume home meds norvasc , imdur, lopressor controlled hyperlipidemia resume statin h/o CAD s/p CABG resume home meds aspirin , statin , metoprolol , Ranexa, plavix renal function unremarkable Na 139, K 4.2 BUN 15 cr 0.73 CBC unremarkable WBC7 Hgb 14 full code DVT PPX hepairn sc tid 5000 units GI PPX protonix 40 mg BID po
[2023-04-30] MEDS: ATORVASTATIN 80 MG TAB PO SCH ×2 (00:50→20:20)
[2023-04-30] MEDS: RANOLAZINE 500 MG TAB.ER.12H PO SCH ×3 (00:51→20:20)
[2023-04-30] MEDS: METOPROLOL TARTRATE 50 MG TAB PO SCH ×3 (00:51→20:20)
[2023-04-30] MEDS: Insulin Aspart (For Pump) 100 UNIT/ML VIAL SQ-PUMP SCH (00:51)
[2023-04-30] MEDS: PANTOPRAZOLE 40 MG TABLET PO SCH ×3 (00:51→17:49)
[2023-04-30] MEDS: PARoxetine 20 MG TAB PO SCH ×2 (00:51→20:20)
[2023-04-30] MEDS: LEVOTHYROXINE 50 MCG TAB PO SCH (05:28)
[2023-04-30 05:48] LABS: Glucose,Whole Blood 137 mg/dL (70-110)
[2023-04-30] MEDS: INSULIN ASPART (NovoLOG) 100 UNIT/ML VIAL SQ SCH ×4 (05:50→21:10)
[2023-04-30] MEDS: ISOSORBIDE MONONITRATE ER 60 MG TAB.ER.24H PO SCH (08:42)
[2023-04-30] MEDS: ASPIRIN 325 MG TAB PO SCH (08:42)
[2023-04-30] MEDS: DAPAGLIFLOZIN PROPANEDIOL 5 MG TABLET PO SCH (08:42)
[2023-04-30] MEDS: HEPARIN SODIUM,PORCINE 5,000 UNIT/ML 1 ML VIAL SQ SCH ×2 (08:43→16:13)
[2023-04-30] MEDS: FUROSEMIDE 10 MG/ML 4 ML VIAL IV SCH ×2 (08:43→20:20)
[2023-04-30] MEDS: amLODIPine 5 MG TAB PO SCH (08:43)
[2023-04-30] MEDS: CLOPIDOGREL 75 MG TAB PO SCH (08:43)
[2023-04-30 11:43] LABS: Glucose,Whole Blood 274 mg/dL (70-110)
--- NOTE | 2023-04-30 12:18 | P.CRDCN ---
History of Present Illness Consult date: 04/30/23 History of present illness: HISTORY OF PRESENTING ILLNESS Patient is a 68-year-old female with past medical history of CAD status post CABG. She is known to Dr. Parish. In February 2023 she underwent the heart catheterization which showed severe left subclavian osteal occlusion with occluded VAZQUEZ to LAD. She was kept on 1 antiplatelet therapy and antianginal therapy and the plan was to eventually get revascularization done either interventionally or surgically. This time patient presented to the hospital because of worsening shortness of breath. She was been treated for, frequent pneumonias an outpatient with oral antibiotics. Due to worsening shortness of breath she saw her PCP who referred her to the hospital with concerns of CHF exacerbation. Patient received IV Lasix since yesterday and she reports significant improvement in her shortness of breath and lower extremity edema. The time of evaluation she does not have significant lung crackles and her lower extremity edema has improved. She continues to have 1+ lower extremity edema. Admission labs showed improvement 14, BUN 15, creatinine 0.7. ECG shows sinus bradycardia, moderate LVH, prolonged QTc, PVCs REVIEW OF SYSTEMS 14 point review of system is negative except what is mentioned above in HPI. PHYSICAL EXAMINATION Vital signs reviewed. Head: Normocephalic. Eyes: Sclerae nonicteric. Neck: Brisk carotid upstroke, no jugular venous distention. Lungs: Mild crackles in bilateral lung bases. Heart: Regular rate and rhythm, S1-S2, no S3, no murmur or rub. Abdomen: Soft nontender, positive bowel sounds no organomegaly. Extremities: 1+ pitting edema in bilateral lower extremity. Neuro: Alert, oritented, no focal deficits ASSESSMENT Shortness of breath and dyspnea on exertion Acute systolic heart failure exacerbation CAD status post CABG. Recent cath showed occluded left subclavian VAZQUEZ to LAD Essential hypertension Dyslipidemia Type II Diabetes PLAN Continue aspirin, Plavix, atorvastatin Continue Lasix 40 mg IV twice a day today. Tomorrow transition to Bumex 1 mg by mouth daily. Patient was on Lasix 40 mg at home which she failed. We will transition to Bumex 1 mg to go home with Will discuss case with Dr. Massey to see the patient needs an inpatient ischemic workup on an outpatient. Continue antianginals including Imdur 60 mg, Ranexa 500 mg, metoprolol 50 mg BID Past Medical History Past Medical History: Asthma, Coronary Artery Disease (CAD), Cancer, Chest Pain / Angina, Heart Failure, Diabetes Mellitus, Deep Vein Thrombosis (DVT), GI Bleed, Hyperlipidemia, Hypertension, Myocardial Infarction (MT), Pneumonia, Pulmonary Embolus (PE), Renal Disease, Thyroid Disorder, Vascular Disorder Additional Past Medical History / Comment(s): Pleurisy, 07-25-15 NSTEMI, goiter, L breast ca with lumpectomy and 33 radiation tx in 1999, frozen shoulders/no longer a problem, heart murmur, IDDM-insulin pump, nephrolithiasis bilaterally with surgery-still has some stones in R kidney, hypothyrioidism, unsure if PE was bilateral or unilateral, 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 09/12 StentsX2-coronary arteries Past Anesthesia/Blood Transfusion Reactions: Previous Problems w/ Anesthesia, Family History of Problems w/ Anesthesia Additional Past Anesthesia/Blood Transfusion Reaction / Comment(s): " I wake up during surgery", sister "heart stopped one time on the table" Date of Last Stent Placement:: 08/2015 Past Psychological History: No Psychological Hx Reported Smoking Status: Former smoker - Past Family History Mother Family Medical History: Cancer, Coronary Artery Disease (CAD), Deep Vein Thrombosis (DVT) Additional Family Medical History / Comment(s): uterine CA Father Family Medical History: Coronary Artery Disease (CAD), Hyperlipidemia Brother(s) Family Medical History: Cancer Sister(s) Family Medical History: Cancer Medications and Allergies Home Medications Medication Instructions Recorded Confirmed Type Levothyroxine Sodium [Synthroid] 50 mcg PO DAILY 03/20/14 04/29/23 History Atorvastatin [Lipitor] 80 mg PO HS #30 tab 09/13/15 04/29/23 Rx Clopidogrel [Plavix] 75 mg PO DAILY 11/20/15 04/29/23 History Metoprolol Tartrate [Lopressor] 50 mg PO BID 11/20/15 04/29/23 History PARoxetine [Paxil] 20 mg PO HS 11/20/15 04/29/23 History Cholecalciferol [Vitamin D3 (25 25 mcg PO DAILY 05/16/20 04/29/23 History Mcg = 1000 Iu)] Ubidecarenone [Co Q-10] 300 mg PO HS 05/16/20 04/29/23 History Alendronate Sodium [Fosamax] 35 mg PO FULLER 05/29/21 04/29/23 History Pantoprazole [Protonix] 40 mg PO BID 05/29/21 04/29/23 History Aspirin 325 mg PO DAILY 02/17/23 04/29/23 History Furosemide [Lasix] 40 mg PO DAILY 02/17/23 04/29/23 History Ranolazine [Ranexa] 500 mg PO BID 02/17/23 04/29/23 History Dapagliflozin Propanediol [Farxiga] 5 mg PO DAILY 04/29/23 04/29/23 History Insulin Aspart (For Pump) [NovoLOG 0.01 unit SQ-PUMP CONTINUOUS 04/29/23 04/29/23 History (For Pump)] Isosorbide Mononitrate ER [Imdur] 60 mg PO DAILY 04/29/23 04/29/23 History amLODIPine [Norvasc] 5 mg PO DAILY 04/29/23 04/29/23 History Allergies Allergy/AdvReac Type Severity Reaction Status Date / Time HILARY Inhibitors Allergy Severe Anaphylaxis Verified 02/28/23 14:38 mold Allergy Allergy Verified 02/28/23 14:38 Test ezetimibe [From Zetia] AdvReac Leg pain Verified 02/28/23 14:38 Physical Exam Vitals: Vital Signs Temp Pulse Pulse Resp BP BP Pulse Ox 04/30/23 09:00 99.1 F 54 L 18 128/58 92 L 04/30/23 02:00 98.0 F 57 L 16 113/59 92 L 04/29/23 23:53 97.9 F 53 L 16 148/64 93 L 04/29/23 21:41 98.0 F 55 L 18 140/63 94 L 04/29/23 16:54 98.6 F 56 L 16 137/71 90 L Intake and Output 04/29/23 04/30/23 04/30/23 22:59 06:59 14:59 Intake Total 120 Balance 120 Intake: Oral 120 Other: # Voids 1 Weight 85.275 kg 84.3 kg Results 04/29/23 17:20 04/29/23 17:20 Cardiac Enzymes 04/29/23 04/29/23 Range/Units 17:20 17:20 AST 33 (14-36) U/L Troponin I <0.012 (0.000-0.034) ng/mL Coagulation 04/29/23 Range/Units 17:20 PT 11.4 (10.0-12.5) sec APTT 25.0 (22.0-30.0) sec CBC 04/29/23 Range/Units 17:20 WBC 7.4 (3.8-10.6) k/uL RBC 5.20 (3.80-5.40) m/uL Hgb 14.0 (11.4-16.0) gm/dL Hct 43.1 (34.0-46.0) % Plt Count 207 (150-450) k/uL Comprehensive Metabolic Panel 04/29/23 Range/Units 17:20 Sodium 139 (137-145) mmol/L Potassium 4.2 (3.5-5.1) mmol/L Chloride 105 (98-107) mmol/L Carbon Dioxide 23 (22-30) mmol/L BUN 15 (7-17) mg/dL Creatinine 0.73 (0.52-1.04) mg/dL Glucose 101 H (74-99) mg/dL Calcium 9.0 (8.4-10.2) mg/dL AST 33 (14-36) U/L ALT 31 (4-34) U/L Alkaline Phosphatase 87 (38-126) U/L Total Protein 6.6 (6.3-8.2) g/dL Albumin 3.9 (3.5-5.0) g/dL Current Medications Generic Name Dose Route Start Last Admin Trade Name Freq PRN Reason Stop Dose Admin Acetaminophen 650 mg 04/30/23 00:21 Acetaminophen Tab 325 Mg Tab PO Q6HR PRN Mild Pain or Fever > 100.5 Alprazolam 0.25 mg 04/30/23 00:21 Alprazolam 0.25 Mg Tab PO Q6HR PRN Anxiety Amlodipine Besylate 5 mg 04/30/23 09:00 04/30/23 08:43 Amlodipine 5 Mg Tab PO 5 mg DAILY ANNA Administration Aspirin 325 mg 04/30/23 09:00 04/30/23 08:42 Aspirin 325 Mg Tab PO 325 mg DAILY ANNA Administration Atorvastatin Calcium 80 mg 04/30/23 00:30 04/30/23 00:50 Atorvastatin 80 Mg Tab PO Not Given HS ANNA Clopidogrel Bisulfate 75 mg 04/30/23 09:00 04/30/23 08:43 Clopidogrel 75 Mg Tab PO 75 mg DAILY ANNA Administration Dapagliflozin 5 mg 04/30/23 09:00 04/30/23 08:42 Dapagliflozin Propanediol 5 Mg Tablet PO 5 mg DAILY ANNA Administration Dextrose/Water 25 ml 04/30/23 00:39 Dextrose 50% Syringe 50 Ml IVP PER PROTOCOL PRN Hypoglycemia Protocol Dextrose/Water 50 ml 04/30/23 00:39 Dextrose 50% Syringe 50 Ml IVP PER PROTOCOL PRN Hypoglycemia Protocol Furosemide 40 mg 04/29/23 21:15 04/30/23 08:43 Furosemide 10 Mg/Ml 4 Ml Vial IV 40 mg Q12H ANNA Administration Heparin Sodium (Porcine) 5,000 unit 04/30/23 08:00 04/30/23 08:43 Heparin Sodium,Porcine 5,000 Unit/Ml 1 Ml Vial SQ 5,000 unit Q8HR ANNA Administration Insulin Aspart 0.01 unit 04/30/23 00:30 04/30/23 00:51 Insulin Aspart (For Pump) 100 Unit/Ml Vial SQ-PUMP Not Given CONTINUOUS ANNA Insulin Aspart 0 unit 04/30/23 07:30 04/30/23 05:50 Insulin Aspart (Novolog) 100 Unit/Ml Vial SQ Not Given ACHS [facility] Protocol Isosorbide Mononitrate 60 mg 04/30/23 09:00 04/30/23 08:42 Isosorbide Mononitrate Er 60 Mg Tab.Er.24h PO 60 mg DAILY ANNA Administration Levothyroxine Sodium 50 mcg 04/30/23 06:30 04/30/23 05:28 Levothyroxine 50 Mcg Tab PO 50 mcg DAILY@0630 ANNA Administration Melatonin 3 mg 04/30/23 00:21 Melatonin 3 Mg Tablet PO HS PRN Insomnia Metoprolol Tartrate 50 mg 04/30/23 00:30 04/30/23 08:43 Metoprolol Tartrate 50 Mg Tab PO 50 mg BID ANNA Administration Naloxone HCl 0.2 mg 04/30/23 00:21 Naloxone 0.4 Mg/Ml 1 Ml Vial IV Q2M PRN Opioid Reversal Ondansetron HCl 4 mg 04/30/23 00:21 Ondansetron 4 Mg/2 Ml Vial IVP Q8HR PRN Nausea And Vomiting Pantoprazole Sodium 40 mg 04/30/23 00:30 04/30/23 05:28 Pantoprazole 40 Mg Tablet PO 40 mg AC-BID ANNA Administration Paroxetine HCl 20 mg 04/30/23 00:30 04/30/23 00:51 Paroxetine 20 Mg Tab PO Not Given HS ANNA Ranolazine 500 mg 04/30/23 00:30 04/30/23 08:42 Ranolazine 500 Mg Tab.Er.12h PO 500 mg BID ANNA Administration Sodium Chloride 10 ml 04/30/23 09:00 04/30/23 08:51 Sodium Chloride 0.9% Flush 10 Ml Syringe IV 10 ml BID ANNA Administration Intake and Output 04/29/23 04/30/23 04/30/23 22:59 06:59 14:59 Intake Total 120 Balance 120 Intake: Oral 120 Other: # Voids 1 Weight 85.275 kg 84.3 kg 04/29/23 17:20 04/29/23 17:20
[2023-04-30 13:46] VITALS: BMI 35.1
--- NOTE | 2023-04-30 14:45 | P.PN ---
Subjective Progress Note Date: 04/30/23 68-year-old female with PMH of diabetes mellitus on insulin pump, CHF, CAD post CABG presents to the ED for worsening shortness of breath. She also reports lower extremity swelling. Initially thought it was a URI, has taken amoxicillin, Z-Miguel, Mucinex with minimal relief. Worsening of her symptoms prompted her to come to the ED. In the ED, she underwent extensive evaluation. Bradycardic with heart rate in the 50s and O2 saturation of 90% on room air. CBC RDW 16.8. INR 1. CMP glucose 101. Lactic acid 1.1. Magnesium 1.9. Troponin less than 0.012. BNP 6620. Influenza, RSV, COVID-19 negative. Chest x-ray pulmonary vascular congestion. EKG sinus bradycardia with PVCs and T-wave inversion. Patient is admitted for CHF exacerbation with cardiology consultation. 04/30 Patient was seen and examined. No acute events overnight. She reports slight improvement in her breathing. Also reports improvement in her lower hi swelling. Currently on Lasix 40 mg IV twice a day. Cardiology recommends continued IV diuresis, inpatient versus outpatient ischemic workup. General: non toxic, no distress, appears at stated age Derm: warm, dry Head: atraumatic, normocephalic, symmetric Eyes: EOMI, no lid lag, anicteric sclera Cardiovascular: S1S2 reg, no murmur Lungs: Crackles at the bases bilateral, no rhonchi, no rales , no accessory muscle use Abdominal: soft, nontender to palpation, no guarding, no appreciable organomegaly Ext: no gross muscle atrophy, 1+ pitting LE edema, no contractures Neuro: no focal neuro deficits Psych: Alert, oriented, appropriate affect Based on my assessment of this patient, this patient meets a high complexity level of care. Patient has a history of diastolic CHF with severe exacerbation or progression of disease which poses a threat to life or bodily function. Acute on chronic diastolic CHF exacerbation: Lasix 40 mg IV BID. Strict intake and outtake. Daily weights. CAD post CABG: ASA 325 mg PO QD. Lipitor 80 mg PO QHS. Plavix 75 mg PO QD. Metoprolol 50 mg PO BID. Diabetes mellitus: Continue insulin pump. CODE STATUS: FULL CODE. DVT Prophylaxis: Heparin SQ. GI Prophylaxis: Protonix PO Designated medical POA if patient is not able to make medical decisions for themselves: I have reviewed the following retirement sales consultant notes: Cardiology. I have reviewed the results of the following tests: I have ordered the following tests: BMP. I have discussed the care of this patient with the following independent historian: I have independently interpreted the following test below: I have discussed the management of this patient with the following physician: This patient has a high risk of morbidity due to the following reasons: Patient requires IV lasix which requires intensive monitoring for renal toxicity. Objective - Vital Signs Vital signs: Vital Signs Temp 99.1 F 04/30/23 09:00 Pulse 54 L 04/30/23 09:00 Resp 18 04/30/23 09:00 BP 128/58 04/30/23 09:00 Pulse Ox 92 L 04/30/23 09:00 FiO2 Intake & Output 04/29/23 04/30/23 04/30/23 18:59 06:59 18:59 Intake Total 360 Balance 360 Weight 85.275 kg 84.3 kg 84.3 kg Intake: Oral 360 Other: # Voids 1 1 - Labs CBC & Chem 7: 04/29/23 17:20 04/29/23 17:20 Labs: Abnormal Lab Results - Last 24 Hours (Table) 04/29/23 04/29/23 04/29/23 Range/Units 17:20 17:20 23:23 RDW 16.8 H (11.5-15.5) % Glucose 101 H (74-99) mg/dL POC Glucose (mg/dL) 111 H (70-110) mg/dL 04/30/23 04/30/23 Range/Units 05:46 11:40 RDW (11.5-15.5) % Glucose (74-99) mg/dL POC Glucose (mg/dL) 137 H 274 H (70-110) mg/dL
[2023-04-30 17:37] LABS: Glucose,Whole Blood 177 mg/dL (70-110)
[2023-04-30 21:01] LABS: Glucose,Whole Blood 208 mg/dL (70-110)
[2023-05-01] MEDS: Insulin Aspart (For Pump) 100 UNIT/ML VIAL SQ-PUMP SCH (01:51)
[2023-05-01] MEDS: HEPARIN SODIUM,PORCINE 5,000 UNIT/ML 1 ML VIAL SQ SCH ×3 (02:55→16:24)
[2023-05-01 06:16] LABS: Glucose,Whole Blood 211 mg/dL (70-110)
[2023-05-01] MEDS: INSULIN ASPART (NovoLOG) 100 UNIT/ML VIAL SQ SCH ×4 (06:19→21:03)
[2023-05-01] MEDS: LEVOTHYROXINE 50 MCG TAB PO SCH (06:21)
[2023-05-01] MEDS: PANTOPRAZOLE 40 MG TABLET PO SCH ×2 (06:21→17:55)
[2023-05-01 06:55] LABS: African American GFR (CKD) 68 (>60 ml/min/1.73 sqM); Anion Gap 11 mmol/L; Blood Urea Nitrogen 22 mg/dL (7-17); Calcium 9.5 mg/dL (8.4-10.2); Carbon Dioxide 28 mmol/L (22-30); Chloride 101 mmol/L (98-107); Glucose 193 mg/dL (74-99); Non-African American GFR(CKD) 59 (>60 ml/min/1.73 sqM); Potassium 3.5 mmol/L (3.5-5.1); Sodium 140 mmol/L (137-145)
[2023-05-01] MEDS: METOPROLOL TARTRATE 50 MG TAB PO SCH ×2 (08:47→20:59)
[2023-05-01] MEDS: DAPAGLIFLOZIN PROPANEDIOL 5 MG TABLET PO SCH (08:47)
[2023-05-01] MEDS: ASPIRIN 325 MG TAB PO SCH (08:47)
[2023-05-01] MEDS: RANOLAZINE 500 MG TAB.ER.12H PO SCH ×2 (08:47→20:59)
[2023-05-01] MEDS: FUROSEMIDE 10 MG/ML 4 ML VIAL IV SCH (08:48)
[2023-05-01] MEDS: amLODIPine 5 MG TAB PO SCH (08:48)
[2023-05-01] MEDS: ISOSORBIDE MONONITRATE ER 60 MG TAB.ER.24H PO SCH (08:48)
[2023-05-01] MEDS: CLOPIDOGREL 75 MG TAB PO SCH (08:48)
[2023-05-01 11:45] LABS: Glucose,Whole Blood 193 mg/dL (70-110)
--- NOTE | 2023-05-01 14:04 | P.PN ---
Subjective Progress Note Date: 05/01/23 68-year-old female with PMH of diabetes mellitus on insulin pump, CHF, CAD post CABG presents to the ED for worsening shortness of breath. She also reports lower extremity swelling. Initially thought it was a URI, has taken amoxicillin, Z-Miguel, Mucinex with minimal relief. Worsening of her symptoms prompted her to come to the ED. In the ED, she underwent extensive evaluation. Bradycardic with heart rate in the 50s and O2 saturation of 90% on room air. CBC RDW 16.8. INR 1. CMP glucose 101. Lactic acid 1.1. Magnesium 1.9. Troponin less than 0.012. BNP 6620. Influenza, RSV, COVID-19 negative. Chest x-ray pulmonary vascular congestion. EKG sinus bradycardia with PVCs and T-wave inversion. Patient is admitted for CHF exacerbation with cardiology consultation. 04/30 She reports slight improvement in her breathing. Also reports improvement in her lower extremity swelling. Currently on Lasix 40 mg IV twice a day. Cardiology recommends continued IV diuresis, inpatient versus outpatient ischemic workup. 05/01 Patient was seen and examined. Reports improved SOB and LE swelling. Maintained on Lasix 40 mg IV BID. Home O2 eval shows patient desaturating with ambulation. BMP shows BUN 22, glu 193. A1c is 8.1. I believe she may benefit from one more day of diuresis due to her oxygen requirements. Repeat home O2 eval tomorrow. Awaiting cardiology recommendations. General: non toxic, no distress, appears at stated age Derm: warm, dry Head: atraumatic, normocephalic, symmetric Eyes: EOMI, no lid lag, anicteric sclera Cardiovascular: S1S2 reg, no murmur Lungs: Crackles at the bases bilateral, no rhonchi, no rales , no accessory muscle use Ext: no gross muscle atrophy, 1+ pitting LE edema, no contractures Neuro: no focal neuro deficits Psych: Alert, oriented, appropriate affect Based on my assessment of this patient, this patient meets a high complexity level of care. Patient has a history of diastolic CHF with severe exacerbation or progression of disease which poses a threat to life or bodily function. Acute on chronic diastolic CHF exacerbation: Lasix 40 mg IV BID. Strict intake and outtake. Daily weights. CAD post CABG: ASA 325 mg PO QD. Lipitor 80 mg PO QHS. Plavix 75 mg PO QD. Metoprolol 50 mg PO BID. Diabetes mellitus: Continue insulin pump. CODE STATUS: FULL CODE. DVT Prophylaxis: Heparin SQ. GI Prophylaxis: Protonix PO Designated medical POA if patient is not able to make medical decisions for themselves: I have reviewed the following senior professional services consultant notes: Cardiology. I have reviewed the results of the following tests: BMP. I have ordered the following tests: BMP. I have discussed the care of this patient with the following independent historian: I have independently interpreted the following test below: I have discussed the management of this patient with the following physician: Discussed with Dr. Coelho. This patient has a high risk of morbidity due to the following reasons: Patient requires IV lasix which requires intensive monitoring for renal toxicity. Objective - Vital Signs Vital signs: Vital Signs Temp 98.5 F 05/01/23 07:52 Pulse 59 L 05/01/23 07:52 Resp 18 05/01/23 07:52 BP 125/55 05/01/23 07:52 Pulse Ox 92 L 05/01/23 07:52 FiO2 Intake & Output 04/30/23 05/01/23 05/01/23 18:59 06:59 18:59 Intake Total 480 240 Balance 480 240 Weight 84.3 kg 82.3 kg Intake: Oral 480 240 Other: # Voids 1 4 0 - Labs CBC & Chem 7: 04/29/23 17:20 05/01/23 06:04 Labs: Abnormal Lab Results - Last 24 Hours (Table) 04/30/23 04/30/23 04/30/23 Range/Units 11:40 17:24 20:59 BUN (7-17) mg/dL Glucose (74-99) mg/dL POC Glucose (mg/dL) 274 H 177 H 208 H (70-110) mg/dL Hemoglobin A1c (<=6.0) % 05/01/23 05/01/23 05/01/23 Range/Units 06:04 06:04 06:14 BUN 22 H (7-17) mg/dL Glucose 193 H (74-99) mg/dL POC Glucose (mg/dL) 211 H (70-110) mg/dL Hemoglobin A1c 8.1 H (<=6.0) %
[2023-05-01 17:21] LABS: Glucose,Whole Blood 130 mg/dL (70-110)
--- NOTE | 2023-05-01 18:09 | CA ---
Transthoracic Echo Report Name: Jennifer Dos Santos Age: 68 Gender: F : 1955 Exam Date: 04/30/2023 07:22 Exam Location: [facility] [place] [facility] Ht (in): 61 Wt (lb): 188 Ordering Physician: Vick Jimenez MD Attending/Referring Phys: [id number], Tony [employer] Equipment Repairer Carisa Joseph, HUSSEIN Procedure CPT: Indications: chf Cardiac Hx: CABG Technical Quality: Good Contrast 1: Total Dose (mL): Contrast 2: Total Dose (mL): MEASUREMENTS (Male / Female) Normal Values 2D ECHO LV Diastolic Diameter PLAX 5.1 cm 4.2 - 5.9 / 3.9 - 5.3 cm LV Systolic Diameter PLAX 3.9 cm IVS Diastolic Thickness 1.3 cm 0.6 - 1.0 / 0.6 - 0.9 cm LVPW Diastolic Thickness 1.3 cm 0.6 - 1.0 / 0.6 - 0.9 cm LV Relative Wall Thickness 0.5 RV Internal Dim ED PLAX 3.7 cm LVOT Diameter 2.2 cm LA Systolic Diameter LX 5.1 cm 3.0 - 4.0 / 2.7 - 3.8 cm LV Diastolic Volume MOD BP 125.6 cm??? 67 - 155 / 56 - 104 cm??? LV Systolic Volume MOD BP 62.4 cm??? - 58 / 19 - 49 cm??? LV Ejection Fraction MOD BP 50.3 % >= 55 % LV Cardiac Index MOD BP 1936.0 cm???/min???m??? LV Diastolic Volume MOD 4C 159.9 cm??? LV Systolic Volume MOD 4C 86.2 cm??? LV Ejection Fraction MOD 4C 46.1 % LV Cardiac Index MOD 4C 2259.3 cm???/min???m??? LV Diastolic Length 4C 8.3 cm LV Systolic Length 4C 7.8 cm LV Diastolic Volume MOD 2C 97.6 cm??? LV Systolic Volume MOD 2C 45.2 cm??? LV Ejection Fraction MOD 2C 53.7 % LV Cardiac Index MOD 2C 1606.8 cm???/min???m??? LV Diastolic Length 2C 8.0 cm LV Systolic Length 2C 8.0 cm LA Volume 76.1 cm??? 18 - 58 / 22 - 52 cm??? LA Volume Index 38.9 cm???/m??? 16 - 28 cm???/m??? M-MODE Aortic Root Diameter MM 3.5 cm MV E Point Septal Separation 1.6 cm AV Cusp Separation MM 1.6 cm DOPPLER AV Peak Velocity 243.4 cm/s AV Peak Gradient 23.7 mmHg AV Mean Velocity 168.3 cm/s AV Mean Gradient 12.5 mmHg AV Velocity Time Integral 63.4 cm AI Peak Velocity 356.9 cm/s AI Peak Gradient 51.0 mmHg AI Pressure Half Time 1576.2 ms LVOT Peak Velocity 108.0 cm/s LVOT Peak Gradient 4.7 mmHg AV Area Cont Eq pk 1.7 cm??? MV Peak Velocity 161.2 cm/s MV Peak Gradient 10.4 mmHg MV Mean Velocity 86.7 cm/s MV Mean Gradient 3.5 mmHg MV Velocity Time Integral 49.8 cm MV Area PHT 3.9 cm??? Mitral E Point Velocity 135.9 cm/s Mitral A Point Velocity 63.0 cm/s Mitral E to A Ratio 2.2 MV Deceleration Time 192.6 ms MV E' Velocity 3.6 cm/s Mitral E to MV E' Ratio 37.5 TR Peak Velocity 384.2 cm/s TR Peak Gradient 59.0 mmHg Right Ventricular Systolic Press 64.0 mmHg FINDINGS Left Ventricle Left ventricular ejection fraction is estimated at 35-40 %. Moderately increased left ventricular diastolic volume. Moderately increased left ventricular systolic volume. Right Ventricle Mild right ventricular dilatation. Severe pulmonary hypertension. Right ventricular systolic pressure estimated at 64 mm Hg. Right Atrium Normal right atrial size. Left Atrium Severe left atrial dilatation Mitral Valve Structurally normal mitral valve. Mild mitral regurgitation. Mean gradient on MV is 4 mmHg Aortic Valve Trileaflet aortic valve. Aortic valve sclerosis. Mild aortic stenosis with a peak gradient of 24 mmHg and a mean gradient of 13 mmHg. Tricuspid Valve Structurally normal tricuspid valve. Moderate tricuspid regurgitation. Pulmonic Valve Structurally normal pulmonic valve. [id number]-[id number] pulmonic regurgitation. Pericardium No pericardial effusion. Aorta Normal size aortic root and proximal ascending aorta. CONCLUSIONS Moderate left ventricular dilatation. LVEF estimated at 35-40% Severely reduced global LV systolic function Anteroapical wall hypokinesia Grade 3 diastolic dysfunction Dilated left atrium with elevated filling pressures Moderate aortic stenosis. Mean gradient is 13 mmHg but suspected to have low flow low gradient stated. DVI ratio 0.3 SV indexed 40 ml/m2 Severe pulmonary hypertension. RVSP 70 mmHg Dilated IVC Previewed by: Dr Abelardo Coelho (Electronically Signed) Final Date: 01 May 2023 18:08
--- NOTE | 2023-05-01 18:16 | P.PN ---
Subjective Progress Note Date: 05/01/23 Progress note: Patient reported that she had good urine output with IV Lasix. Her lower extremity swelling has improved. Her shortness of breath has improved. Patient is here to go home. I will keep her in hospital for IV diuretic today. We will transition her to by mouth Bumex tomorrow morning and she can be discharged. Echocardiogram showed an EF of 35%, dilated left ventricle, global hypokinesia, anteroapical wall motion abnormality, severe LV filling pressures, severe left atrial dilatation, grade 3 diastolic dysfunction HISTORY OF PRESENTING ILLNESS Patient is a 68-year-old female with past medical history of CAD status post CABG. She is known to Dr. Parish. In February 2023 she underwent the heart catheterization which showed severe left subclavian osteal occlusion with occluded VAZQUEZ to LAD. She was kept on 1 antiplatelet therapy and antianginal therapy and the plan was to eventually get revascularization done either interventionally or surgically. This time patient presented to the hospital because of worsening shortness of b reath. She was been treated for, frequent pneumonias an outpatient with oral antibiotics. Due to worsening shortness of breath she saw her PCP who referred her to the hospital with concerns of CHF exacerbation. Patient received IV Lasix since yesterday and she reports significant improvement in her shortness of breath and lower extremity edema. The time of evaluation she does not have significant lung crackles and her lower extremity edema has improved. She continues to have 1+ lower extremity edema. Admission labs showed improvement 14, BUN 15, creatinine 0.7. ECG shows sinus bradycardia, moderate LVH, prolonged QTc, PVCs REVIEW OF SYSTEMS 14 point review of system is negative except what is mentioned above in HPI. PHYSICAL EXAMINATION Vital signs reviewed. Head: Normocephalic. Eyes: Sclerae nonicteric. Neck: Brisk carotid upstroke, no jugular venous distention. Lungs: Mild crackles in bilateral lung bases. Heart: Regular rate and rhythm, S1-S2, no S3, no murmur or rub. Abdomen: Soft nontender, positive bowel sounds no organomegaly. Extremities: 1+ pitting edema in bilateral lower extremity. Neuro: Alert, oritented, no focal deficits ASSESSMENT Severe cardiomyopathy, ischemic EF 35% Moderate aortic stenosis Shortness of breath and dyspnea on exertion due to Acute systolic heart failure exacerbation CAD status post CABG. Recent cath showed occluded left subclavian VAZQUEZ to LAD Essential hypertension Dyslipidemia Type II Diabetes PLAN Continue aspirin, Plavix, atorvastatin Continue IV Lasix twice a day today. Transition to Bumex 1 mg daily to go home with. Continue antianginals including Ranexa 500 mg, metoprolol 50 mg BID Start Farxiga 10 mg daily. Start Aldactone 25 mg daily. Next step will be to add Entresto. Reduce Imdur to 30 mg to allow addition of guideline directed medical therapy Perform 6min Walk test for home oxygen evaluation before d/c. Patient needs close outpatient follow-up with Dr. Massey and an outpatient intervention. She will need IMPELLA assisted complex left main and LAD intervention regarding rotoblade and shockwave. Objective - Vital Signs Vital signs: Vital Signs Temp 98.5 F 05/01/23 07:52 Pulse 59 L 05/01/23 07:52 Resp 18 05/01/23 07:52 BP 125/55 05/01/23 07:52 Pulse Ox 87 L 05/01/23 13:02 FiO2 Intake & Output 04/30/23 05/01/23 05/01/23 18:59 06:59 18:59 Intake Total 480 360 Output Total 800 Balance 480 -440 Weight 84.3 kg 82.3 kg Intake: Oral 480 360 Output: Urine 800 Other: # Voids 1 4 0 - Labs CBC & Chem 7: 04/29/23 17:20 05/01/23 06:04 Labs: Abnormal Lab Results - Last 24 Hours (Table) 04/30/23 05/01/23 05/01/23 Range/Units 20:59 06:04 06:04 BUN 22 H (7-17) mg/dL Glucose 193 H (74-99) mg/dL POC Glucose (mg/dL) 208 H (70-110) mg/dL Hemoglobin A1c 8.1 H (<=6.0) % 05/01/23 05/01/23 05/01/23 Range/Units 06:14 11:41 17:16 BUN (7-17) mg/dL Glucose (74-99) mg/dL POC Glucose (mg/dL) 211 H 193 H 130 H (70-110) mg/dL Hemoglobin A1c (<=6.0) %
[2023-05-01 20:28] LABS: Glucose,Whole Blood 164 mg/dL (70-110)
[2023-05-01] MEDS: ATORVASTATIN 80 MG TAB PO SCH (20:59)
[2023-05-01] MEDS ORDERED: FUROSEMIDE 10 MG/ML 4 ML VIAL IV ONE (21:00)
[2023-05-01] MEDS: PARoxetine 20 MG TAB PO SCH (22:09)
[2023-05-02] MEDS: Insulin Aspart (For Pump) 100 UNIT/ML VIAL SQ-PUMP SCH ×2 (00:28→23:58)
[2023-05-02] MEDS: HEPARIN SODIUM,PORCINE 5,000 UNIT/ML 1 ML VIAL SQ SCH ×4 (00:28→23:56)
[2023-05-02 06:14] LABS: Glucose,Whole Blood 142 mg/dL (70-110)
[2023-05-02] MEDS: LEVOTHYROXINE 50 MCG TAB PO SCH (06:14)
[2023-05-02] MEDS: PANTOPRAZOLE 40 MG TABLET PO SCH ×2 (06:14→17:45)
[2023-05-02] MEDS: INSULIN ASPART (NovoLOG) 100 UNIT/ML VIAL SQ SCH ×4 (06:15→21:06)
[2023-05-02] MEDS ORDERED: BUMETANIDE 1 MG TAB PO SCH (09:00)
[2023-05-02] MEDS: CLOPIDOGREL 75 MG TAB PO SCH (09:31)
[2023-05-02] MEDS: amLODIPine 5 MG TAB PO SCH (09:31)
[2023-05-02] MEDS: ISOSORBIDE MONONITRATE ER 30 MG TAB.ER.24H PO SCH (09:31)
[2023-05-02] MEDS: METOPROLOL TARTRATE 50 MG TAB PO SCH ×2 (09:31→21:06)
[2023-05-02] MEDS: SPIRONOLACTONE 25 MG TAB PO SCH (09:31)
[2023-05-02] MEDS: RANOLAZINE 500 MG TAB.ER.12H PO SCH ×2 (09:31→21:06)
[2023-05-02] MEDS: ASPIRIN 81 MG PO SCH (09:31)
[2023-05-02] MEDS: DAPAGLIFLOZIN PROPANEDIOL 10 MG TABLET PO SCH (09:33)
[2023-05-02] MEDS: FUROSEMIDE 10 MG/ML 4 ML VIAL IV SCH ×2 (09:38→21:05)
--- NOTE | 2023-05-02 10:38 | P.PN ---
Subjective HISTORY OF PRESENT ILLNESS: 04/30/2023 Patient is a 68-year-old female with past medical history of CAD status post CABG. She is known to Dr. Parish. In February 2023 she underwent the heart catheterization which showed severe left subclavian osteal occlusion with occluded VAZQUEZ to LAD. She was kept on 1 antiplatelet therapy and antianginal therapy and the plan was to eventually get revascularization done either interventionally or surgically. This time patient presented to the hospital because of worsening shortness of breath. She was been treated for, frequent pneumonias an outpatient with oral antibiotics. Due to worsening shortness of breath she saw her PCP who referred her to the hospital with concerns of CHF exacerbation. Patient received IV Lasix since yesterday and she reports significant improvement in her shortness of breath and lower extremity edema. The time of evaluation she does not have significant lung crackles and her lower extremity edema has improved. She continues to have 1+ lower extremity edema. Admission labs showed improvement 14, BUN 15, creatinine 0.7. ECG shows sinus bradycardia, moderate LVH, prolonged QTc, PVCs 05/01/2023atient reported that she had good urine output with IV Lasix. Her lower extremity swelling has improved. Her shortness of breath has improved. Patient is here to go home. I will keep her in hospital for IV diuretic today. We will transition her to by mouth Bumex tomorrow morning and she can be discharged. Echocardiogram showed an EF of 35%, dilated left ventricle, global hypokinesia, anteroapical wall motion abnormality, severe LV filling pressures, severe left atrial dilatation, grade 3 diastolic dysfunction 05/02/2023 Patient examined this morning at the bedside. Patient currently denies chest pain or pressure. She currently denies shortness of breath at rest. She continues to have lower extremity edema. She was transitioned to oral diuretics this morning. Vital signs are stable. PHYSICAL EXAM: VITAL SIGNS: Reviewed. GENERAL: Well-developed in no acute distress. NECK: Supple. No JVD or thyromegaly LUNGS: Respirations even and unlabored. Lungs with expiratory wheezing noted. HEART: Regular rate and rhythm. S1 and S2 heard. EXTREMITIES: Normal range of motion. No clubbing or cyanosis. Peripheral pulses intact. 1-2+ bilateral lower extremity edema ASSESSMENT: Shortness of breath Acute on chronic heart failure with reduced ejection fraction Ischemic cardiomyopathy, ejection fraction 35% Coronary artery disease with previous CABG and recent heart cath showing occluded VAZQUEZ to LAD and occluded left subclavian artery Hypertension Hyperlipidemia Diabetes PLAN: Continue current cardiac medications Discontinue oral Bumex Begin IV Lasix 40 mg every 12 hours Daily weights, accurate I&O, and monitoring of kidney function Recommend diuresing patient for another day and possible transition to oral diuretics with discharge home tomorrow Patient to follow-up post discharge with Dr. Parish. Patient will require PCI of the LAD in the future. Further recommendations pending patient's course Nurse practitioner note has been reviewed by physician. Signing provider agrees with the documented findings, assessment, and plan of care. Objective - Vital Signs Vital signs: Vital Signs Temp 98.3 F 05/02/23 08:00 Pulse 59 L 05/02/23 08:00 Resp 16 05/02/23 08:00 BP 123/64 05/02/23 08:00 Pulse Ox 92 L 05/02/23 08:00 FiO2 Intake & Output 05/01/23 05/02/23 05/02/23 18:59 06:59 18:59 Intake Total 600 Output Total 800 1100 Balance -200 -1100 Weight 81.5 kg Intake: Oral 600 Output: Urine 800 1100 Other: Voiding Method Toilet # Voids 0 - Labs CBC & Chem 7: 04/29/23 17:20 05/01/23 06:04 Labs: Abnormal Lab Results - Last 24 Hours (Table) 05/01/23 05/01/23 05/01/23 Range/Units 11:41 17:16 20:26 POC Glucose (mg/dL) 193 H 130 H 164 H (70-110) mg/dL 05/02/23 Range/Units 06:13 POC Glucose (mg/dL) 142 H (70-110) mg/dL
[2023-05-02 11:36] LABS: NT-Pro-B-Type Natriuretic Pept 2290 pg/mL
[2023-05-02 12:16] LABS: Glucose,Whole Blood 163 mg/dL (70-110)
[2023-05-02 12:22] LABS: African American GFR (CKD) 65 (>60 ml/min/1.73 sqM); Anion Gap 13 mmol/L; Blood Urea Nitrogen 24 mg/dL (7-17); Calcium 9.7 mg/dL (8.4-10.2); Carbon Dioxide 28 mmol/L (22-30); Chloride 98 mmol/L (98-107); Glucose 217 mg/dL (74-99); Non-African American GFR(CKD) 56 (>60 ml/min/1.73 sqM); Sodium 139 mmol/L (137-145)
[2023-05-02] MEDS ORDERED: guaiFENesin 600 MG TABLET.ER PO PRN (13:28)
--- NOTE | 2023-05-02 15:53 | P.PN ---
Subjective Progress Note Date: 05/02/23 Pt reports having some difficulty breathing still. Cardiology saw patient and resumed IV lasix. Gen: awake, alert HEENT: normocephalic, atraumatic, good hearing acuity, moist mucous membranes Resp: good air exchange, breathing comfortably with no accessory muscle use CVS: good distal perfusion x 4, GI: soft, NTTP, ND : no SPT, no CVAT, lr catheter not present MSK: b/l pitting edema, no clubbing Neuro: non-focal, moving all extremities Psych: cooperative, euthymic mood Hospital Course: 68-year-old female with PMH of diabetes mellitus on insulin pump, CHF, CAD post CABG presents to the ED for worsening shortness of breath. In the ED, she underwent extensive evaluation. Bradycardic with heart rate in the 50s and O2 saturation of 90% on room air. CBC RDW 16.8. INR 1. CMP glucose 101. Lactic acid 1.1. Magnesium 1.9. Troponin less than 0.012. BNP 6620. Influenza, RSV, COVID-19 negative. Chest x-ray pulmonary vascular congestion. EKG sinus bradycardia with PVCs and T-wave inversion. Patient is admitted for CHF exacerbation with cardiology consultation. 04/30 She reports slight improvement in her breathing. Also reports improvement in her lower extremity swelling. Currently on Lasix 40 mg IV twice a day. Cardiology recommends continued IV diuresis, inpatient versus outpatient isc hemic workup. 05/01 Patient was seen and examined. Reports improved SOB and LE swelling. Maintained on Lasix 40 mg IV BID. Home O2 eval shows patient desaturating with ambulation. BMP shows BUN 22, glu 193. A1c is 8.1. I believe she may benefit from one more day of diuresis due to her oxygen requirements. Repeat home O2 eval tomorrow. Awaiting cardiology recommendations. Assessment/Plan: Acute on chronic diastolic CHF exacerbation: -Lasix 40 mg IV BID. Strict intake and outtake. Daily weights. CAD post CABG: -ASA 325 mg PO QD. Lipitor 80 mg PO QHS. Plavix 75 mg PO QD. Metoprolol 50 mg PO BID. Diabetes mellitus: -Continue insulin pump. CODE STATUS: FULL CODE. DVT Prophylaxis: Heparin SQ. GI Prophylaxis: Protonix PO Designated medical POA if patient is not able to make medical decisions for themselves: Objective - Vital Signs Vital signs: Vital Signs Temp 98.2 F 05/02/23 15:26 Pulse 63 05/02/23 15:26 Resp 16 05/02/23 15:26 BP 101/55 05/02/23 15:26 Pulse Ox 92 L 05/02/23 15:26 FiO2 Intake & Output 05/01/23 05/02/23 05/02/23 18:59 06:59 18:59 Intake Total 600 480 Output Total 800 1100 1400 Balance -200 -1100 -920 Weight 81.5 kg Intake: Oral 600 480 Output: Urine 800 1100 1400 Other: Voiding Method Toilet # Voids 0 - Labs CBC & Chem 7: 04/29/23 17:20 05/02/23 10:34 Labs: Abnormal Lab Results - Last 24 Hours (Table) 05/01/23 05/01/23 05/02/23 Range/Units 17:16 20:26 06:13 BUN (7-17) mg/dL Glucose (74-99) mg/dL POC Glucose (mg/dL) 130 H 164 H 142 H (70-110) mg/dL 05/02/23 05/02/23 Range/Units 10:34 12:15 BUN 24 H (7-17) mg/dL Glucose 217 H (74-99) mg/dL POC Glucose (mg/dL) 163 H (70-110) mg/dL
[2023-05-02 17:32] LABS: Glucose,Whole Blood 204 mg/dL (70-110)
[2023-05-02 20:23] LABS: Glucose,Whole Blood 230 mg/dL (70-110)
[2023-05-02] MEDS: ATORVASTATIN 80 MG TAB PO SCH (21:06)
[2023-05-02] MEDS: PARoxetine 20 MG TAB PO SCH (21:06)
[2023-05-03 06:22] LABS: Glucose,Whole Blood 233 mg/dL (70-110)
[2023-05-03] MEDS: PANTOPRAZOLE 40 MG TABLET PO SCH (06:24)
[2023-05-03] MEDS: LEVOTHYROXINE 50 MCG TAB PO SCH (06:25)
[2023-05-03] MEDS: INSULIN ASPART (NovoLOG) 100 UNIT/ML VIAL SQ SCH ×2 (09:03→12:21)
[2023-05-03] MEDS: HEPARIN SODIUM,PORCINE 5,000 UNIT/ML 1 ML VIAL SQ SCH (09:15)
[2023-05-03] MEDS: METOPROLOL TARTRATE 50 MG TAB PO SCH (09:15)
[2023-05-03] MEDS: amLODIPine 5 MG TAB PO SCH (09:15)
[2023-05-03] MEDS: FUROSEMIDE 10 MG/ML 4 ML VIAL IV SCH (09:15)
[2023-05-03] MEDS: ISOSORBIDE MONONITRATE ER 30 MG TAB.ER.24H PO SCH (09:15)
[2023-05-03] MEDS: RANOLAZINE 500 MG TAB.ER.12H PO SCH (09:16)
[2023-05-03] MEDS: SPIRONOLACTONE 25 MG TAB PO SCH (09:16)
[2023-05-03] MEDS: ASPIRIN 81 MG PO SCH (09:16)
[2023-05-03] MEDS: DAPAGLIFLOZIN PROPANEDIOL 10 MG TABLET PO SCH (09:16)
[2023-05-03] MEDS: CLOPIDOGREL 75 MG TAB PO SCH (09:16)
[2023-05-03 09:27] VITALS: TEMP 98
--- NOTE | 2023-05-03 10:05 | P.PN ---
Subjective HISTORY OF PRESENT ILLNESS: 04/30/2023 Patient is a 68-year-old female with past medical history of CAD status post CABG. She is known to Dr. Parish. In February 2023 she underwent the heart catheterization which showed severe left subclavian osteal occlusion with occluded VAZQUEZ to LAD. She was kept on 1 antiplatelet therapy and antianginal therapy and the plan was to eventually get revascularization done either interventionally or surgically. This time patient presented to the hospital because of worsening shortness of breath. She was been treated for, frequent pneumonias an outpatient with oral antibiotics. Due to worsening shortness of breath she saw her PCP who referred her to the hospital with concerns of CHF exacerbation. Patient received IV Lasix since yesterday and she reports significant improvement in her shortness of breath and lower extremity edema. The time of evaluation she does not have significant lung crackles and her lower extremity edema has improved. She continues to have 1+ lower extremity edema. Admission labs showed improvement 14, BUN 15, creatinine 0.7. ECG shows sinus bradycardia, moderate LVH, prolonged QTc, PVCs 05/01/2023atient reported that she had good urine output with IV Lasix. Her lower extremity swelling has improved. Her shortness of breath has improved. Patient is here to go home. I will keep her in hospital for IV diuretic today. We will transition her to by mouth Bumex tomorrow morning and she can be discharged. Echocardiogram showed an EF of 35%, dilated left ventricle, global hypokinesia, anteroapical wall motion abnormality, severe LV filling pressures, severe left atrial dilatation, grade 3 diastolic dysfunction 05/02/2023 Patient examined this morning at the bedside. Patient currently denies chest pain or pressure. She currently denies shortness of breath at rest. She continues to have lower extremity edema. She was transitioned to oral diuretics this morning. Vital signs are stable. 05/03/2023 Patient examined this morning at the bedside. Patient currently denies chest pain or pressure. She denies shortness of breath. She remains on IV diuretics and she states she has been up in bleeding in the hallway without difficulty. PHYSICAL EXAM: VITAL SIGNS: Reviewed. GENERAL: Well-developed in no acute distress. NECK: Supple. No JVD or thyromegaly LUNGS: Respirations even and unlabored. Lungs with decreased air exchange and a few crackles at the bases HEART: Regular rate and rhythm. S1 and S2 heard. EXTREMITIES: Normal range of motion. No clubbing or cyanosis. Peripheral pulses intact. 1-2+ bilateral lower extremity edema ASSESSMENT: Shortness of breath Acute on chronic heart failure with reduced ejection fraction Ischemic cardiomyopathy, ejection fraction 35% Coronary artery disease with previous CABG and recent heart cath showing occluded VAZQUEZ to LAD and occluded left subclavian artery Hypertension Hyperlipidemia Diabetes PLAN: Continue current cardiac medications Recommend Lasix 40 mg twice a day at discharge Patient to follow-up post discharge with Dr. Parish. Patient will require PCI of the LAD in the future. Patient to be discharged home today from a cardiac standpoint Further recommendations pending patient's course Nurse practitioner note has been reviewed by physician. Signing provider agrees with the documented findings, assessment, and plan of care. Objective - Vital Signs Vital signs: Vital Signs Temp 98.0 F 05/03/23 08:00 Pulse 63 05/03/23 09:14 Resp 12 05/03/23 08:00 BP 129/61 05/03/23 09:14 Pulse Ox 94 L 05/03/23 08:00 FiO2 Intake & Output 05/02/23 05/03/23 05/03/23 18:59 06:59 18:59 Intake Total 600 Output Total 1400 1350 350 Balance -800 -1350 -350 Weight 80.7 kg Intake: Oral 600 Output: Urine 1400 1350 350 Other: Voiding Method Toilet Toilet # Voids 1 - Labs CBC & Chem 7: 04/29/23 17:20 05/02/23 10:34 Labs: Abnormal Lab Results - Last 24 Hours (Table) 05/02/23 05/02/23 05/02/23 Range/Units 10:34 12:15 17:31 BUN 24 H (7-17) mg/dL Glucose 217 H (74-99) mg/dL POC Glucose (mg/dL) 163 H 204 H (70-110) mg/dL 05/02/23 05/03/23 Range/Units 20:22 06:21 BUN (7-17) mg/dL Glucose (74-99) mg/dL POC Glucose (mg/dL) 230 H 233 H (70-110) mg/dL
[2023-05-03 10:15] LABS: Calcium 9.7 mg/dL (8.7-10.3); Carbon Dioxide 27.5 mmol/L (21.6-31.8); Chloride 101 mmol/L (96-109); Glucose 254 mg/dL (70-110); Potassium 3.7 mmol/L (3.5-5.5); Sodium 143 mmol/L (135-145)
--- NOTE | 2023-05-03 11:48 | P.DS ---
Providers Date of admission: 04/29/23 21:07 Expected date of discharge: 05/03/23 Attending physician: Vick Jimenez MD Consults: 04/29/23 21:04 Consult Physician Stat Consulting Provider: Abelardo Coelho Consult Reason/Comments: CHF Do you want consulting provider notified?: Yes Primary care physician: Jerrell Fenton [facility] Course: Discharge Diagnosis: Acute exacerbation of systolic and diastolic congestive heart failure with ejection fraction 35-50% Severe pulm htn Moderate aortic stenosis DM 2 with insulin pump and hyperglycemia - A1C 8.1 Hospital Course: Patient is a 68-year-old female with known congestive heart failure, coronary artery disease, diabetes, hypertension, dyslipidemia, and multiple other comorbid conditions who presented increasing lower extremity edema and shortness of breath. In the ER she underwent an extensive evaluation was ultimately found to have an acute exacerbation of congestive heart failure. She was admitted and was started on IV Lasix. Cardiology was consulted. She underwent an echocardiogram which showed a newly discovered systolic cardiomyopathy with ejection fraction 35-40% and severe pulmonary hypertension. She continued to diuresis. She underwent home O2 eval with O2 at rest of 84% and 88% with exercise. She is determined stable for discharge home. Follow-up: Dr. Parish on 05/13. Lasix increased to 40 mg BID, Aldactone 25 mg daily, Imdur was decreased to 30 mg daily, patient was additionally started on aspirin 81 mg daily. Continue on Farxiga. Needs O2 at home to manage her CHF symptoms. Patient seen and examined at bedside. DOign well, feesl as though she can manage at home. Sweeling vastly mproved. Vital signs reviewed and stable. General: nontoxic, no distress, appears at stated age Cardiovascular: S1S2 reg, no murmur, positive posterior tibial pulse bilateral, Lungs: Course bs bilateral, no rhonchi, no rales , no accessory muscle use Abdominal: soft, nontender to palpation, no guarding, no appreciable organomegaly Ext: no gross muscle atrophy, no edema b/l lower extremities, no contractures Neuro: CN II-XI grossly intact, no focal neuro deficits Psych: Alert, oriented, appropriate affect A total of 35 minutes of time were spent preparing this complex discharge summary. Patient was discharged on 05/03/23. This dictation was prepared using [employer] recognition software. Though every attempt is made to correct errors during dictation some may still exist. Patient Condition at Discharge: Stable Plan - Discharge Summary New Discharge Prescriptions: New Furosemide [Lasix] 40 mg PO BID #60 tablet Spironolactone [Aldactone] 25 mg PO DAILY #30 tab Aspirin 81 mg PO DAILY tab Isosorbide Mononitrate ER [Imdur] 30 mg PO DAILY #30 tab Continue Levothyroxine Sodium [Synthroid] 50 mcg PO DAILY Atorvastatin [Lipitor] 80 mg PO HS #30 tab Metoprolol Tartrate [Lopressor] 50 mg PO BID Clopidogrel [Plavix] 75 mg PO DAILY PARoxetine [Paxil] 20 mg PO HS Ubidecarenone [Co Q-10] 300 mg PO HS Cholecalciferol [Vitamin D3 (25 Mcg = 1000 Iu)] 25 mcg PO DAILY Alendronate Sodium [Fosamax] 35 mg PO FULLER Insulin Aspart (For Pump) [NovoLOG (For Pump)] 0.01 unit SQ-PUMP CONTINUOUS Pantoprazole [Protonix] 40 mg PO BID Ranolazine [Ranexa] 500 mg PO BID amLODIPine [Norvasc] 5 mg PO DAILY Dapagliflozin Propanediol [Farxiga] 5 mg PO DAILY Discontinued Furosemide [Lasix] 40 mg PO DAILY Isosorbide Mononitrate ER [Imdur] 60 mg PO DAILY Aspirin 325 mg PO DAILY Discharge Medication List Levothyroxine Sodium [Synthroid] 50 mcg PO DAILY 03/20/14 [History] Atorvastatin [Lipitor] 80 mg PO HS #30 tab 09/13/15 [Rx] Clopidogrel [Plavix] 75 mg PO DAILY 11/20/15 [History] Metoprolol Tartrate [Lopressor] 50 mg PO BID 11/20/15 [History] PARoxetine [Paxil] 20 mg PO HS 11/20/15 [History] Cholecalciferol [Vitamin D3 (25 Mcg = 1000 Iu)] 25 mcg PO DAILY 05/16/20 [History] Ubidecarenone [Co Q-10] 300 mg PO HS 05/16/20 [History] Alendronate Sodium [Fosamax] 35 mg PO FULLER 05/29/21 [History] Pantoprazole [Protonix] 40 mg PO BID 05/29/21 [History] Ranolazine [Ranexa] 500 mg PO BID 02/17/23 [History] Dapagliflozin Propanediol [Farxiga] 5 mg PO DAILY 04/29/23 [History] Insulin Aspart (For Pump) [NovoLOG (For Pump)] 0.01 unit SQ-PUMP CONTINUOUS 04/29/23 [History] amLODIPine [Norvasc] 5 mg PO DAILY 04/29/23 [History] Aspirin 81 mg PO DAILY tab 05/03/23 [Rx] Furosemide [Lasix] 40 mg PO BID #60 tablet 05/03/23 [Rx] Isosorbide Mononitrate ER [Imdur] 30 mg PO DAILY #30 tab 05/03/23 [Rx] Spironolactone [Aldactone] 25 mg PO DAILY #30 tab 05/03/23 [Rx] Follow up Appointment(s)/Referral(s): Alec Parish MD [STAFF PHYSICIAN] - 05/13/23 9:15 am (Appointment made at the main office ) Jerrell Fitzgerald MD [Primary Care Provider] - 1-2 days Activity/Diet/Wound Care/Special Instructions: Activity: As tolerated Diet: Heart Healthy, 2 gram sodium diet Special Instructions: Call Dr. Parish if you gain more than 3 pounds in 1 day and greater than 5 pounds in 3 days She requires Oxygen with ambulation to manage her dyspnea due to congestive heart failure. Discharge Disposition: HOME SELF-CARE
[2023-05-03 12:16] VITALS: PULSE 58
[2023-05-03 12:23] LABS: Glucose,Whole Blood 273 mg/dL (70-110)
[2023-05-03 13:52] VITALS: BP 113/71; RESP 18
== END 2023-05-03 14:05 | disposition home or self-care (01) | DRG 291 ==
LOC: EC 16:18 → 4SSUR 21:07 → 6NMEDSUR 22:04
PROVIDERS: ADMIT Internal Medicine; ATTEND Internal Medicine
DX: I11.0 Hypertensive heart disease with heart failure (principal); I50.43 Acute on chronic combined systolic (congestive) and diastolic (congestive) heart failure; I25.810 Atherosclerosis of coronary artery bypass graft(s) without angina pectoris; I42.8 Other cardiomyopathies; I49.3 Ventricular premature depolarization; R94.31 Abnormal electrocardiogram [ECG] [EKG]; I35.0 Nonrheumatic aortic (valve) stenosis; E11.65 Type 2 diabetes mellitus with hyperglycemia; Z96.41 Presence of insulin pump (external) (internal); E78.5 Hyperlipidemia, unspecified; I25.10 Atherosclerotic heart disease of native coronary artery without angina pectoris; I25.2 Old myocardial infarction; I25.5 Ischemic cardiomyopathy; I27.20 Pulmonary hypertension, unspecified; Z11.52 Encounter for screening for COVID-19; J45.909 Unspecified asthma, uncomplicated; Z95.1 Presence of aortocoronary bypass graft; E66.9 Obesity, unspecified; Z99.81 Dependence on supplemental oxygen; Z68.33 Body mass index [BMI] 33.0-33.9, adult; N20.0 Calculus of kidney; I44.4 Left anterior fascicular block; Z79.02 Long term (current) use of antithrombotics/antiplatelets; Z79.4 Long term (current) use of insulin; Z79.82 Long term (current) use of aspirin; Z79.83 Long term (current) use of bisphosphonates; Z79.84 Long term (current) use of oral hypoglycemic drugs; Z79.890 Hormone replacement therapy; Z79.899 Other long term (current) drug therapy; Z82.49 Family history of ischemic heart disease and other diseases of the circulatory system; Z85.3 Personal history of malignant neoplasm of breast; Z86.711 Personal history of pulmonary embolism; Z86.718 Personal history of other venous thrombosis and embolism; Z87.442 Personal history of urinary calculi; Z87.891 Personal history of nicotine dependence; Z90.710 Acquired absence of both cervix and uterus; Z87.01 Personal history of pneumonia (recurrent); Z92.3 Personal history of irradiation; Z60.2 Problems related to living alone; Z95.5 Presence of coronary angioplasty implant and graft
CPT/HCPCS: 36415; 71046; 80048; 80053; 83036; 83605; 83735; 83880; 84484; 85025; 85610; 85730; 87636; 93005; 93306; 96374; 99285

== ENCOUNTER 2023-05-18 09:11 | Inpatient (IN) | payer MEDICARE ==
[~2023-05-18 09:11] MED LIST changes: +ASPIRIN 325 MG TAB PO ONE; -ASPIRIN 325 MG TAB PO STA; -ATORVASTATIN 80 MG TAB PO STA
[2023-05-18 09:39] LABS: Glucose,Whole Blood 186 mg/dL (70-110)
[2023-05-18] MEDS ORDERED: MIDAZOLAM 2 MG/2 ML VIAL IVP ONE (13:07)
[2023-05-18] MEDS ORDERED: LIDOCAINE 1% INJ 10MG/ML (20 ML MDV) SQ ONE (13:11)
[2023-05-18] MEDS ORDERED: fentaNYL (PF) 50 MCG/ML 2 ML AMP ONE (13:19)
[2023-05-18] MEDS ORDERED: fentaNYL (PF) 50 MCG/1 ML VIAL IVP ONE ×3 (13:20)
[2023-05-18] MEDS: HEPARIN SODIUM 1,000 UN/ML (10ML VL) IVP ONE ×3 (13:26→15:11)
[2023-05-18] MEDS ORDERED: SODIUM CHLORIDE 0.9% 1,000 ML IV ONE (15:06)
[2023-05-18] MEDS ORDERED: IOPAMIDOL-370 100ML BTL INJ ONE (15:21)
[2023-05-18] MEDS ORDERED: TICAGRELOR 90 MG TAB ONE (15:22)
[2023-05-18] MEDS ORDERED: TICAGRELOR 90 MG TAB PO ONE (15:26)
[2023-05-18] MEDS ORDERED: HYDROmorphone 0.5 MG/0.5 ML SYRINGE IVP ONE (15:27)
[2023-05-18] MEDS ORDERED: MAG HYDROX/AL HYDROX/SIMETH 30 ML CUP PO PRN (15:41)
[2023-05-18] MEDS ORDERED: NITROGLYCERIN SL TABS 0.4 MG TAB SUBLINGUAL PRN (15:41)
[2023-05-18] MEDS ORDERED: RX INFO: IV CONTRAST WAS GIVEN 1 EACH MISC MISCELLANE PRN (15:41)
[2023-05-18] MEDS ORDERED: ATROPINE SULFATE 0.1 MG/ML 10ML SYRINGE IV PRN (15:41)
[2023-05-18] MEDS ORDERED: ZOLPIDEM 5 MG TAB PO PRN (15:41)
[2023-05-18] MEDS ORDERED: SODIUM CHLORIDE 0.9% 1,000 ML in EMPTY BAG 1 BAG IV SCH (15:45)
[2023-05-18 16:06] LABS: Glucose,Whole Blood 133 mg/dL (70-110)
[2023-05-18] MEDS: FUROSEMIDE 40 MG TAB PO SCH (16:40)
[2023-05-18] MEDS: PANTOPRAZOLE 40 MG TABLET PO SCH (16:40)
[2023-05-18] MEDS: PARoxetine 20 MG TAB PO SCH (16:40)
[2023-05-18 17:36] LABS: Glucose,Whole Blood 158 mg/dL (70-110)
[2023-05-18] MEDS: ACETAMINOPHEN TAB 325 MG TAB PO PRN (19:09)
[2023-05-18 20:29] LABS: Glucose,Whole Blood 181 mg/dL (70-110)
[2023-05-18] MEDS: ATORVASTATIN 80 MG TAB PO SCH (20:41)
[2023-05-18] MEDS: RANOLAZINE 500 MG TAB.ER.12H PO SCH (20:41)
[2023-05-18] MEDS ORDERED: METOPROLOL TARTRATE 50 MG TAB PO SCH (21:00)
--- NOTE | 2023-05-18 23:16 | P.PCN ---
Date of Procedure: 05/18/23 Operative Findings: Percutaneous coronary intervention Performing physician Alec Parish MD Procedure performed - Successful stenting of the mid LAD using 2.75 x 38 mm Xience LIANET with an excellent angiographic results - Successful stenting of the proximal LAD using 3.0 x 18 mm Xience LIANET with an excellent angiographic results - Adjunctive use of orbital atherectomy and lithotripsy balloon and intravascular imaging - Adjunctive use of Impella CP in the left ventricle - Adjunctive use of temporary pacemaker from left femoral vein - Selective bilateral common femoral artery angiogram and ultrasound guided access of the right common femoral artery Indication This is a 68-year-old female patient with coronary artery disease and prior coronary artery bypass grafting as well as diabetes and hypertension and dyslipidemia and multiple comorbid conditions who was experiencing symptoms of shortness of breath recently. She underwent myocardial perfusion imaging stress test and that came in to be of normal and subsequently she underwent a heart catheterization at that revealed severe triple-vessel coronary artery disease with occlusion of the VAZQUEZ to LAD and patent SVG to left circumflex. The RCA was chronically occluded. He underwent cardiac MRI and that revealed large area of viable myocardium involving the anterior wall. In the light of that and because she continues to be symptomatic PCI of the LAD was advised. Please note that the patient was seen by cardiothoracic surgeon and she was deemed to be high risk for redo surgery and also she did not have any conduit Approach Right common femoral artery Left common femoral artery Left common femoral vein Complications None Level of sedation Moderate with sedation length of at least 3 hours and the procedure was long Procedure description After obtaining informed consent the patient was brought to the cardiac labor relations or personnel negotiator. The right common femoral artery was cannulated using micropuncture technique under ultrasound guidance and micropuncture wire passed easily then I placed a 6 Nigerien 11 cm sheath at the right common femoral artery. Subsequently I deployed two Perclose at 1:00 and 11:00. After that an 8 Nigerien sheath was placed at the right common femoral artery over a regular 035 wire which was a long 035 wire. Subsequently the 035 wire was pulled out and I advanced a stiff 035 wire. Then the 8 Nigerien sheath was pulled out and I advanced initially a 10 Nigerien dilator before I advanced 14 Nigerien sheath over a stiff 035 wire under fluoroscopy guidance and the sheath was long and it was advanced all the way to the aortic bifurcation. At that point anticoagulation was initiated using heparin with continuous ACT monitoring. Subsequently I did cross the aortic valve using a 035 wire and 6 Nigerien pigtail catheter. Then I did hold the 035 wire out and I advanced a 018 wire and then I pulled the pigtail catheter out. Subsequently the Impella CP was advanced under fluoroscopy guidance over the 018 wire the left ventricle. Then the wire was pulled out and it was turned on. Then after that I accessed the 14 Nigerien sheath using an 18-gauge needle at 10:00. After that I placed a 7 Nigerien 23 cm sheath inside the 14 Nigerien sheath. That was performed over 035 wire. At that point I attempting advancing a 7 [facility] EBU 3.5 guiding catheter over 035 wire but the catheter would not make the transition from the iliac artery and aorta. At that point I decided to access the left groin. The left common femoral artery was cannulated using micropuncture technique under ultrasound guidance and the micropuncture wire passed easily then I placed a 7 Nigerien 23 cm sheath at the left common femoral artery. Subsequently I was able to engage the left main using EBU 3.57 Nigerien guiding catheter. Selective left coronary angiogram was performed and showed extremely calcified left main and left anterior descending artery with critical disease involving the mid LAD and critical disease involving the proximal left anterior descending artery. I did cross the lesion in the left anterior descending artery using 014 whisper wire with the backup support of a 014 catheter. After that and because of the lesion was extremely calcified and because of constant friction I decided to pursue with atherectomy of the left anterior descending artery. Stenting advancing the microcatheter which was coarseair cath that was unsuccessful but it was successful using another microcatheter which was advanced over the whisper wire all the way to the distal left anterior descending artery then the wire was pulled out and I was able to inject contrast to prove that I was in the true lumen. Subsequently I did advance the atherectomy wire which crossed the flex wire inside the microcatheter and then pulled the microcatheter out. Atherectomy of the left anterior descending artery was performed using the orbital atherectomy device with multiple runs all were performed on low speed in the mid and proximal left anterior descending artery. Subsequently I did balloon angioplasty initially using 2 mm noncompliant balloon where I did PTCA ballooning of the LAD all the way from the mid to proximal portion. Please note that I did perform intravascular ultrasound of the left anterior descending artery which showed a diameter between 2.75-3 mm. After the 2 oh millimeter balloon I decided to do lithotripsy prolonged because the LAD was extremely calcified. I did wire the LAD using a vinh wire and that was a run through wire and I kept the atherectomy wire in place. Subsequently I was able to advance a 3.0 lithotripsy balloon to the mid LAD where I did balloon angioplasty of the mid LAD as well as to the proximal LAD all the way to the ostial LAD. After that I decided to stent the mid LAD using 2.75 x 38 mm stent and then the proximal LAD using 3.0 x 23 mm stent. There was about 1 mm overlap between the 2 stents. Postdilatation was performed using 3.5 mm noncompliant balloon and subsequently intravascular imaging performed and showed that the stent was well opposed and well expanded. Final angiogram was performed and showed a good angiographic results. Please note that before I placed the 14 Nigerien lead I did picture using the microcatheter and that showed that the sheath position was in a good spot before I upgraded the sheath into a large bore sheath. After that they did hold the Impella from the left ventricle and then it was pulled out completely. The guide was also pulled out completely. After that I was able to pull the 14 Nigerien sheath out and achieved good hemostasis of the right groin. I did a right common femoral artery angiogram done coming up and over from the left common femoral artery and that initially showed some extravasation of contrast which was sealed using manual pressure and subsequent angiogram showed good hemostasis. Then I did exchange myelomatous teeth on the left side into short sheath using a 035 wire for added selective left common femoral artery angiogram. The procedure was completed was no complication in the left groin was closed using Angio-Seal Postprocedure management Dual antiplatelet therapy Aggressive cholesterol control ICU monitoring Follow-up with a basic
[2023-05-19] MEDS: LEVOTHYROXINE 50 MCG TAB PO SCH (06:25)
[2023-05-19] MEDS: Insulin Aspart (For Pump) 100 UNIT/ML VIAL SQ-PUMP SCH ×2 (06:28→12:21)
[2023-05-19] MEDS: PANTOPRAZOLE 40 MG TABLET PO SCH ×2 (06:31→16:27)
[2023-05-19 07:55] LABS: African American GFR (CKD) >90 (>60 ml/min/1.73 sqM); Non-African American GFR(CKD) 80 (>60 ml/min/1.73 sqM)
[2023-05-19 08:38] LABS: Basophils # (A) 0.1 k/uL (0-0.2); Basophils % (A) 1 %; Eosinophils # (A) 0.2 k/uL (0-0.7); Eosinophils % (A) 3 %; HCT 44.1 % (34.0-46.0); HGB 14.2 gm/dL (11.4-16.0); Hypochromasia Slight; Lymphocytes # (A) 1.5 k/uL (1.0-4.8); Lymphocytes % (A) 21 %; MCH 27.3 pg (25.0-35.0); MCHC 32.3 g/dL (31.0-37.0); MCV 84.6 fL (80.0-100.0); Mean Platelet Volume 8.1; Monocytes # (A) 0.4 k/uL (0-1.0); Monocytes % (A) 6 %; Neutrophils # (A) 4.9 k/uL (1.3-7.7); Neutrophils % (A) 68 %; Platelet Count 165 k/uL (150-450); RBC 5.21 m/uL (3.80-5.40); RDW 15.9 % (11.5-15.5); WBC 7.2 k/uL (3.8-10.6)
[2023-05-19 08:45] LABS: Anion Gap 10 mmol/L; Blood Urea Nitrogen 20 mg/dL (7-17); Calcium 9.1 mg/dL (8.4-10.2); Carbon Dioxide 24 mmol/L (22-30); Chloride 107 mmol/L (98-107); Glucose 95 mg/dL (74-99); Potassium 4.2 mmol/L (3.5-5.1); Sodium 141 mmol/L (137-145)
[2023-05-19] MEDS ORDERED: NON FORMULARY DRUG (Ubidecarenone [Co Q-10] 400 MG Capsule) PO SCH (09:00)
[2023-05-19] MEDS ORDERED: CLOPIDOGREL 75 MG TAB PO SCH (09:00)
[2023-05-19] MEDS ORDERED: ASPIRIN 325 MG TAB PO SCH (09:00)
--- NOTE | 2023-05-19 09:26 | US ---
EXAMINATION TYPE: US lower ext pseudo artery BI DATE OF EXAM: 05/19/2023 COMPARISON: NONE CLINICAL INDICATION: Female, 68 years old with history of Rule out pseudoaneurysm bilateral groin; Br uising right groin. Painful bilateral groin. Post angiogram 05/18/23 EXAM PERFORMED: Grayscale and color Doppler duplex imaging performed of the groin, post cardiac stacey ter to assess for pseudoaneurysm. SIDE PERFORMED: bilateral Color and Waveform Doppler performed to assess for the presence of pseudoaneurysm; Is there ultrasound evidence of a pseudoaneurysm: no Is there evidence of AV shunting: no Is there a fluid collection present: no IMPRESSION: No pseudoaneurysm or sizable hematoma identified by the optical coating technician in either groin.
[2023-05-19] MEDS: TICAGRELOR 90 MG TAB PO SCH ×2 (09:31→20:15)
[2023-05-19] MEDS: ISOSORBIDE MONONITRATE ER 30 MG TAB.ER.24H PO SCH (09:31)
[2023-05-19] MEDS: SPIRONOLACTONE 25 MG TAB PO SCH (09:31)
[2023-05-19] MEDS: CHOLECALCIFEROL 25 MCG (1000 IU) TABLET PO SCH (09:31)
[2023-05-19] MEDS: FUROSEMIDE 40 MG TAB PO SCH ×2 (09:31→16:27)
[2023-05-19] MEDS: ASPIRIN 81 MG PO SCH (09:31)
[2023-05-19] MEDS: amLODIPine 5 MG TAB PO SCH (09:31)
[2023-05-19] MEDS: METOPROLOL TARTRATE 25 MG TAB PO SCH ×2 (09:31→20:15)
[2023-05-19] MEDS: DAPAGLIFLOZIN PROPANEDIOL 5 MG TABLET PO SCH (09:50)
[2023-05-19] MEDS: RANOLAZINE 500 MG TAB.ER.12H PO SCH ×2 (09:50→20:15)
[2023-05-19 11:18] VITALS: BMI 34.7
[2023-05-19 11:23] LABS: Glucose,Whole Blood 120 mg/dL (70-110)
[2023-05-19 16:13] LABS: Glucose,Whole Blood 89 mg/dL (70-110)
[2023-05-19] MEDS: ACETAMINOPHEN TAB 325 MG TAB PO PRN ×2 (16:27→20:15)
[2023-05-19] MEDS: PARoxetine 20 MG TAB PO SCH (16:27)
[2023-05-19 20:02] LABS: Glucose,Whole Blood 142 mg/dL (70-110)
[2023-05-19] MEDS: ATORVASTATIN 80 MG TAB PO SCH (20:15)
[2023-05-19] MEDS ORDERED: INSPUCOR MISCELLANE PRN (20:34)
[2023-05-19 21:13] LABS: Glucose,Whole Blood 73 mg/dL (70-110)
[2023-05-19 23:56] LABS: Glucose,Whole Blood 115 mg/dL (70-110)
[2023-05-20 04:19] VITALS: PULSE 68
[2023-05-20 06:09] LABS: Glucose,Whole Blood 172 mg/dL (70-110)
[2023-05-20] MEDS: LEVOTHYROXINE 50 MCG TAB PO SCH (06:27)
[2023-05-20] MEDS: PANTOPRAZOLE 40 MG TABLET PO SCH (06:27)
[2023-05-20 08:23] VITALS: BP 103/60; RESP 18; TEMP 98.8
[2023-05-20] MEDS: ASPIRIN 81 MG PO SCH (08:25)
[2023-05-20] MEDS: METOPROLOL TARTRATE 25 MG TAB PO SCH (08:25)
[2023-05-20] MEDS: SPIRONOLACTONE 25 MG TAB PO SCH (08:25)
[2023-05-20] MEDS: FUROSEMIDE 40 MG TAB PO SCH (08:26)
[2023-05-20] MEDS: TICAGRELOR 90 MG TAB PO SCH (08:26)
[2023-05-20] MEDS: ISOSORBIDE MONONITRATE ER 30 MG TAB.ER.24H PO SCH (08:26)
[2023-05-20] MEDS: amLODIPine 5 MG TAB PO SCH (08:27)
[2023-05-20] MEDS: RANOLAZINE 500 MG TAB.ER.12H PO SCH (08:27)
[2023-05-20] MEDS: DAPAGLIFLOZIN PROPANEDIOL 5 MG TABLET PO SCH (08:29)
[2023-05-20] MEDS: CHOLECALCIFEROL 25 MCG (1000 IU) TABLET PO SCH (08:29)
[2023-05-20 09:40] LABS: Anisocytosis Slight; Basophils # (A) 0.1 k/uL (0-0.2); Basophils % (A) 1 %; Eosinophils # (A) 0.2 k/uL (0-0.7); Eosinophils % (A) 3 %; HCT 45.4 % (34.0-46.0); HGB 14.4 gm/dL (11.4-16.0); Lymphocytes # (A) 1.6 k/uL (1.0-4.8); Lymphocytes % (A) 18 %; MCH 26.7 pg (25.0-35.0); MCHC 31.7 g/dL (31.0-37.0); MCV 84.2 fL (80.0-100.0); Mean Platelet Volume 8.4; Monocytes # (A) 0.4 k/uL (0-1.0); Monocytes % (A) 5 %; Neutrophils # (A) 6.4 k/uL (1.3-7.7); Neutrophils % (A) 73 %; Platelet Count 180 k/uL (150-450); RBC 5.39 m/uL (3.80-5.40); RDW 16.1 % (11.5-15.5); WBC 8.8 k/uL (3.8-10.6)
--- NOTE | 2023-05-20 09:52 | P.DS ---
Providers Date of admission: 05/18/23 15:41 Attending physician: Alec Parish Consults: 05/18/23 15:41 Consult Physician Routine Consulting Provider: [facility] Consult Reason/Comments: Post Interventional patient Do you want consulting provider notified?: Already Contacted Primary care physician: Jerrell Fenton [facility] Course: The patient is a pleasant 68-year-old female patient with coronary artery disease who underwent recently stenting of the left anterior descending artery with adjunctive use of mechanical support She was seen and evaluated this morning. She is asymptomatic. She is medically stable. We are waiting for the blood work from this morning and if the blood work came in to be unremarkable the patient is going to be discharged home on dual antiplatelet therapy along with a statin and I will follow with the patient next week in the office Plan - Discharge Summary Discharge Rx Participant: No New Discharge Prescriptions: New Ticagrelor [Brilinta] 90 mg PO BID #180 tab Continue Levothyroxine Sodium [Synthroid] 50 mcg PO DAILY Atorvastatin [Lipitor] 80 mg PO HS #30 tab Metoprolol Tartrate [Lopressor] 50 mg PO BID PARoxetine [Paxil] 20 mg PO W/SUPPER Alendronate Sodium [Fosamax] 35 mg PO FULLER Insulin Aspart (For Pump) [NovoLOG (For Pump)] 0.01 unit SQ-PUMP CONTINUOUS Furosemide [Lasix] 40 mg PO BID #60 tablet Spironolactone [Aldactone] 25 mg PO DAILY #30 tab Pantoprazole [Protonix] 40 mg PO BID Ranolazine [Ranexa] 500 mg PO BID amLODIPine [Norvasc] 5 mg PO DAILY Dapagliflozin Propanediol [Farxiga] 5 mg PO DAILY Isosorbide Mononitrate ER [Imdur] 30 mg PO DAILY #30 tab Cholecalciferol [Vitamin D3 (25 Mcg = 1000 Iu)] 50 mcg PO DAILY Aspirin 325 mg PO DAILY Ubidecarenone [Co Q-10] 100 mg PO DAILY Discontinued Clopidogrel [Plavix] 75 mg PO DAILY Discharge Medication List Levothyroxine Sodium [Synthroid] 50 mcg PO DAILY 03/20/14 [History] Atorvastatin [Lipitor] 80 mg PO HS #30 tab 09/13/15 [Rx] Metoprolol Tartrate [Lopressor] 50 mg PO BID 11/20/15 [History] PARoxetine [Paxil] 20 mg PO W/SUPPER 11/20/15 [History] Alendronate Sodium [Fosamax] 35 mg PO FULLER 05/29/21 [History] Pantoprazole [Protonix] 40 mg PO BID 05/29/21 [History] Ranolazine [Ranexa] 500 mg PO BID 02/17/23 [History] Dapagliflozin Propanediol [Farxiga] 5 mg PO DAILY 04/29/23 [History] Insulin Aspart (For Pump) [NovoLOG (For Pump)] 0.01 unit SQ-PUMP CONTINUOUS 04/29/23 [History] amLODIPine [Norvasc] 5 mg PO DAILY 04/29/23 [History] Furosemide [Lasix] 40 mg PO BID #60 tablet 05/03/23 [Rx] Isosorbide Mononitrate ER [Imdur] 30 mg PO DAILY #30 tab 05/03/23 [Rx] Spironolactone [Aldactone] 25 mg PO DAILY #30 tab 05/03/23 [Rx] Aspirin 325 mg PO DAILY 05/16/23 [History] Cholecalciferol [Vitamin D3 (25 Mcg = 1000 Iu)] 50 mcg PO DAILY 05/16/23 [History] Ubidecarenone [Co Q-10] 100 mg PO DAILY 05/16/23 [History] Ticagrelor [Brilinta] 90 mg PO BID #180 tab 05/20/23 [Rx] Follow up Appointment(s)/Referral(s): Alec Parish MD [STAFF PHYSICIAN] - 05/24/23 4:00 pm
[2023-05-20 09:54] LABS: African American GFR (CKD) 80 (>60 ml/min/1.73 sqM); Anion Gap 12 mmol/L; Blood Urea Nitrogen 22 mg/dL (7-17); Calcium 9.6 mg/dL (8.4-10.2); Carbon Dioxide 29 mmol/L (22-30); Chloride 101 mmol/L (98-107); Glucose 193 mg/dL (74-99); Non-African American GFR(CKD) 69 (>60 ml/min/1.73 sqM); Potassium 4.1 mmol/L (3.5-5.1); Sodium 142 mmol/L (137-145)
[2023-05-22] MEDS ORDERED: NON FORMULARY DRUG (Alendronate Sodium [Fosamax] 35 MG Tablet) PO SCH (15:40)
== END 2023-05-20 12:01 | disposition home or self-care (01) | DRG 220 ==
LOC: CATHCVL 09:11 → 2SICU 15:41 → 3SCARD 05-19 17:25
PROVIDERS: ADMIT Internal Medicine Interventional Cardiology; ATTEND Internal Medicine Interventional Cardiology
PROC: B240ZZ3 Ultrasonography of Single Coronary Artery, Intravascular (ICD-10-PCS; 2023-05-18)
PROC: 5A1223Z Performance of Cardiac Pacing, Continuous (ICD-10-PCS; 2023-05-18)
PROC: B41G1ZZ Fluoroscopy of Left Lower Extremity Arteries using Low Osmolar Contrast (ICD-10-PCS; 2023-05-18)
PROC: B41F1ZZ Fluoroscopy of Right Lower Extremity Arteries using Low Osmolar Contrast (ICD-10-PCS; 2023-05-18)
PROC: 027035Z Dilation of Coronary Artery, One Artery with Two Drug-eluting Intraluminal Devices, Percutaneous Approach (ICD-10-PCS; principal; 2023-05-18 12:30)
PROC: 02HA3RJ Insertion of Short-term External Heart Assist System into Heart, Intraoperative, Percutaneous Approach (ICD-10-PCS; 2023-05-18 12:30)
PROC: 02C03Z7 Extirpation of Matter from Coronary Artery, One Artery, Orbital Atherectomy Technique, Percutaneous Approach (ICD-10-PCS; 2023-05-18 12:30)
PROC: 5A0221D Assistance with Cardiac Output using Impeller Pump, Continuous (ICD-10-PCS; 2023-05-18 12:30)
PROC: 02F03ZZ Fragmentation in Coronary Artery, One Artery, Percutaneous Approach (ICD-10-PCS; 2023-05-18 12:30)
DX: T82.867A Thrombosis due to cardiac prosthetic devices, implants and grafts, initial encounter (principal); I25.810 Atherosclerosis of coronary artery bypass graft(s) without angina pectoris; Z95.1 Presence of aortocoronary bypass graft; E78.5 Hyperlipidemia, unspecified; E66.3 Overweight; Z68.34 Body mass index [BMI] 34.0-34.9, adult; Z88.8 Allergy status to other drugs, medicaments and biological substances; I25.5 Ischemic cardiomyopathy; I08.0 Rheumatic disorders of both mitral and aortic valves; N18.9 Chronic kidney disease, unspecified; I12.9 Hypertensive chronic kidney disease with stage 1 through stage 4 chronic kidney disease, or unspecified chronic kidney disease; E11.22 Type 2 diabetes mellitus with diabetic chronic kidney disease; E11.51 Type 2 diabetes mellitus with diabetic peripheral angiopathy without gangrene; Z79.4 Long term (current) use of insulin; Z79.899 Other long term (current) drug therapy
CPT/HCPCS: 0715T; 33990; 76937; 80048; 85025; 92978; 93925; 93975

== ENCOUNTER → 2024-07-31 | Outpatient (CLI) | payer MEDICARE ==
--- NOTE | 2024-07-31 11:30 | CT ---
EXAMINATION TYPE: CT chest wo con CT DLP: 395.3 mGycm, Automated exposure control for dose reduction was used. 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 TECHNIQUE: Multiple axial images were obtained through the chest without IV contrast. Lack of IV or o ral contrast limits evaluation of solid and hollow organ viscera. . Coronal and sagittal reformats re viewed. FINDINGS: LUNGS/ PLEURA: No pleural effusion, pneumothorax, or focal consolidation. A few scattered catheter gr anulomas. Stable left lower lobe 4.8 mm pulmonary nodule (series 4, image 40). Stable dating back to at least 2020 and considered benign. No new or enlarging pulmonary nodules. Similar left anterior up per lobe subpleural reticular opacities likely related to postradiation changes. AIRWAY: Patent and unremarkable.. HEART: Mildly enlarged.No pericardial effusion Moderate coronary artery calcifications present. Aort ic valvular calcifications. MEDIASTINUM: No gross evidence of adenopathy. VASCULATURE: Moderate atherosclerotic calcification of the aorta and its branches. Aortic root measu res up to 3.0 cm. Stable ectasia of the ascending thoracic aorta measuring up to 3.8 cm. No thoracic aortic aneurysm. The descending thoracic aorta measures up to 2.5 cm. Dilated main pulmonary artery m easuring up to 3.5 cm suggested pulmonary arterial hypertension. MUSCULOSKELETAL: No acute osseous abnormalities. Sternotomy wires. No aggressive osseous lesion. Mild multilevel degenerative disc disease of the thoracic spine. SOFT TISSUES/LYMPH NODES: Dystrophic calcifications scarring identified within the left breast. Stabl e from prior exam. LOWER NECK: Left thyroid lobe is atrophic versus surgically absent. UPPER ABDOMEN: Small hiatal hernia. Scattered colonic diverticula without surrounding inflammatory ch anges. IMPRESSION: 1. No acute thoracic process. 2. Stable ectasia of the ascending thoracic aorta measuring up to 3.8 cm. 3. Dilated main pulmonary artery suggesting pulmonary hypertension again. 4. Posttreatment changes in the left breast with subpleural radiation changes to the left anterior up per lobe. [facility], , 07/31/2024 11:28 AM
--- NOTE | 2024-07-31 17:58 | MM ---
Reason for Exam: Screening (asymptomatic). Last mammogram was performed 3 year(s) and 7 month(s) ago. Patient History: Menarche at age 9. First Full-Term at age 19. Left ovary removed at age 42. Hysterectomy at age 42. Postmenopausal. Patient has history of breast feeding. Breast cancer, left, age 43. Previous chest radiation therapy at age 44. Lumpectomy on the Left side. Lumpectomy on the Left side. Cyst Aspiration on the Left side. Lumpectomy on the Left side. 05/12/2007, Benign Core Biopsy on the left side. 12/20/2005, Benign Core Biopsy on the left side. 04/08/2000, Excisional Biopsy on the Left side. 03/15/2000, Stereotactic Core Biopsy on the Left side. 03/15/2000, Stereotactic Core Biopsy on the Left side. 03/30/1999, Benign Ultrasound-Guided Core Biopsy on the left side. Radiation Therapy, left. 1999, Radiation Therapy on the left side. Radiation Therapy, left. Paternal aunt had breast cancer, age 40. Maternal aunt had breast cancer. Niece had breast cancer, age 36. Sister (Vineet) had breast cancer, age 60. Daughter had breast cancer, age 46. Prior Study Comparison: 03/28/2015 Bilateral Diagnostic Mammogram, [facility]. 02/07/2019 Bilateral Diagnostic Mammogram, [facility]. 01/16/2021 Bilateral Screening Mammogram, [facility]. Tissue Density: The breasts are heterogeneously dense, which may obscure small masses. Findings: Analyzed By CAD. Redemonstrated postsurgical posttreatment changes left breast with large area of fat necrosis posterior upper-outer quadrant. Benign bilateral secretory calcifications and scattered the oil cysts and round/punctate calcifications. There are progressive benign dystrophic calcifications associated with a chronic nodule upper outer quadrant anterior left breast with microclip indicating prior biopsy. There is no suspicious group of microcalcifications or new suspicious mass in either breast. Overall Assessment: Benign, BI-RAD 2 Management: Screening Mammogram of both breasts in 1 year. Patient should continue monthly self-breast exams. A clinical breast exam by your physician is recommended on an annual basis. This exam should not preclude additional follow-up of suspicious palpable abnormalities. [facility], , 07/31/2024 5:56 PM. Electronically signed and approved by: Kayla Raza M.D. Radiologist
== END | disposition home or self-care (01) ==
LOC: RADCTMAIN 09:50
PROVIDERS: ATTEND Family Medicine
DX: Z12.31 Encounter for screening mammogram for malignant neoplasm of breast (principal); I77.810 Thoracic aortic ectasia; R92.333 Mammographic heterogeneous density, bilateral breasts; R92.1 Mammographic calcification found on diagnostic imaging of breast; K57.30 Diverticulosis of large intestine without perforation or abscess without bleeding; K44.9 Diaphragmatic hernia without obstruction or gangrene; Z80.3 Family history of malignant neoplasm of breast; Z78.0 Asymptomatic menopausal state; Z85.3 Personal history of malignant neoplasm of breast
CPT/HCPCS: 71250; 77063; 77067

== ENCOUNTER → 2024-08-21 | Outpatient (CLI) | payer MEDICARE ==
--- NOTE | 2024-08-21 11:51 | US ---
EXAMINATION TYPE: US thyroid st tissue head/neck DATE OF EXAM: 08/21/2024 COMPARISON: US 2019 and older studies CLINICAL INDICATION: Female, 69 years old with history of E03.9 HYPOTHYROIDISM; Hypothyroid TECHNIQUE: Grayscale and color Doppler imaging of the thyroid gland. FINDINGS: GLAND SIZE: Right Lobe: 4.8 x 1.9 x 1.5 cm Overall Parenchyma: heterogeneous Left Lobe: 2.7 x 1.1 x 1.0 cm Overall Parenchyma: heterogeneous Isthmus Thickness: 0.3 cm NODULES RIGHT: # of nodules measured on right: 1 Multiple sub-centimeter nodules scattered throughout right lobe, largest on today's exam measured 1. 0.6 X 0.5 x 0.6 cm, mid, solid or almost completely solid, hypoechoic nodule, which is wider vlad n tall, with smooth margins, without echogenic foci. TR4 Prior size: Does not reflect prior nodule LEFT: # of nodules measured on left: 1 1. 0.8 X 0.6 x 0.8 cm, mid, solid or almost completely solid, hypoechoic nodule, which is wider vlad n tall, with smooth margins, without echogenic foci. TR4 Prior size: 0.9 x 0.7 x 0.8 cm ISTHMUS: # of nodules measured in the isthmus: 0 Bilateral neck scanned, no evidence of lymphadenopathy. Essentially stable sub-centimeter nodules wilmar aterally. Persistent heterogeneous thyroid with multiple bilateral small nodules and asymmetric small size to t he left thyroid lobe. No significant change from most recent prior ultrasound. IMPRESSION: As above. No suspicious greater than 1 cm nodules. Highest TI-RADS level nodule reported: 2017 ACR TI-RADS LEVEL: TI-RADS 4 - Moderately Suspicious: Follow if > 1 cm, FNA if > 1.5 cm TI-RADS assessment score and recommendation for follow-up based on appropriate scoring and treatment protocols. TR3: If nodule size is ? 2.5 cm, FNA is recommended. If nodule size is ? 1.5 cm, follow-up imaging at 1, 3, and 5 years is recommended. TR4: If nodule size is ? 1.5 cm, FNA is recommended. If nodule size is ? 1.0 cm, follow-up imaging at 1, 2, 3, and 5 years is recommended. TR5: If nodule size is ? 1.0 cm, FNA is recommended. If nodule size is ? 0.5 cm, annual follow-up for up to 5 years is recommended. [email or web address] [facility], , 08/21/2024 11:49 AM
--- NOTE | 2024-08-21 13:27 | BD ---
EXAMINATION TYPE: Axial Bone Density DATE OF EXAM: 08/21/2024 CLINICAL HISTORY: 69 years old Female. ICD-10 CODE: M81.0 AGE RELATED OSTEO Height: 61.3 Weight: 179 FRAX RISK QUESTIONS: History of Fracture in Adulthood: yes Secondary Osteoporosis: yes 1. Type 1 Diabetes: yes 3. Menopause before 45: 1996 RISK FACTORS HISTORY OF: hx of rt foot fx, couples yrs ago MEDICATIONS: bp meds in combination with heart meds, vit d, type 1/2 diabetic insulin pump Thyroid Medications: yes, synthroid for over 20 yrs Osteoporosis Medications: yes, fosamax for longtime, not taking now EXAM MEASUREMENTS: Bone mineral densitometry was performed using the [employer] System. Bone mineral density as measured about the Lumbar spine is: ----- L1-L4(G/cm2): 1.051 T Score Values are as follows: ----- L1: -2.0 ----- L2: -1.7 ----- L3: -0.8 ----- L4: -0.2 ----- L1-L4: -1.1 Z Score Values are as follows: ----- L1: -0.9 ----- L2: -0.5 ----- L3: 0.3 ----- L4: 0.9 ----- L1-L4: 0.1 Bone mineral density has: Increased 3.0% since study of: 01.19.2021 Bone mineral density about the R hip (g/cm2): 0.722 Bone mineral density about the L hip (g/cm2): 0.794 T Score values are as follows: -----R Neck: -2.2 -----L Neck: -1.8 -----R Total: 2.3 -----L Total: -1.7 Z Score values are as follows: -----R Neck: -0.8 -----L Neck: -0.4 -----R Total: -1.1 -----L Total: -0.5 Bone mineral density has: Decreased -7.8% since study of: FRAX%s: The graph provided illustrates a 19.5% chance for a major osteoporotic fx and a 4.2% chance f or the hips probability for fx in 10 years time. IMPRESSION: Osteopenia (T Score between -2.5 and -1). There is slightly increased risk of fracture and the patient may be considered for treatment. Re-Screen 2-5 years. NOTE: T-SCORE=SD OF THE YOUNG ADULT MEAN. [facility], , 08/21/2024 1:25 PM
== END | disposition home or self-care (01) ==
LOC: RADUSWWP 10:53
PROVIDERS: ATTEND Internal Medicine
DX: M81.0 Age-related osteoporosis without current pathological fracture (principal); E03.9 Hypothyroidism, unspecified; E04.2 Nontoxic multinodular goiter; M85.89 Other specified disorders of bone density and structure, multiple sites
CPT/HCPCS: 76536; 77080

== ENCOUNTER → 2024-08-24 | Outpatient (CLI) | payer MEDICARE ==
--- NOTE | 2024-08-24 13:55 | US ---
EXAMINATION TYPE: US kidneys/renal and bladder DATE OF EXAM: 08/24/2024 COMPARISON: Renal ultrasound July 02, 2014) CLINICAL INDICATION: Female, 69 years old with history of N18.1 CHRONIC KIDNEY DISEASE, STAGE 1; TECHNIQUE: Grayscale imaging of the bilateral kidneys and urinary bladder: FINDINGS: EXAM MEASUREMENTS: Right Kidney: 8.7x4.3x6.8cm Left Kidney: 11.3x4.8x5.0cm Right Kidney: ?slightly dilated renal pelvis Left Kidney: ?slightly dilated renal pelvis Bladder: wnl Bilateral Jets seen: Yes IMPRESSION: Mild bilateral hydronephrosis on current study though note is made bilateral distal urete r jets are identified. [facility], , 08/24/2024 1:53 PM
== END | disposition home or self-care (01) ==
LOC: RADUSWWP 13:27
PROVIDERS: ATTEND Internal Medicine
DX: N18.1 Chronic kidney disease, stage 1 (principal); N13.39 Other hydronephrosis
CPT/HCPCS: 76770

== ENCOUNTER → 2024-09-17 | Outpatient (CLI) | payer MEDICARE ==
[2024-09-17 10:32] LABS: HCT 45.7 % (37.2-46.3); HGB 14.6 g/dL (12.0-15.0); MCH 28.5 pg (27.0-32.0); MCHC 31.9 g/dL (32.0-37.0); MCV 89.1 FL (80.0-97.0); Mean Platelet Volume 10.6 FL (9.5-12.2); NRBC Per 100 WBC 0 X 10*3/uL (0.00-0.01); Platelet Count 214 X 10*3/uL (140-440); RBC 5.13 X 10*6/uL (4.10-5.20); WBC 8.25 X 10*3/uL (4.50-10.00)
[2024-09-17 10:43] LABS: Hepatitis A Antibody IgM Nonreactive (Nonreactive); Hepatitis B Core IgM Nonreactive (Nonreactive); Hepatitis B Surface Antigen Nonreactive (Nonreactive); Hepatitis C IgG Antibody Nonreactive (Nonreactive)
[2024-09-17 10:50] LABS: % Iron Saturation 14.86 (12.00-45.00); ALT 12 U/L (8-44); AST 20 U/L (13-35); Albumin 4.3 g/dL (3.8-4.9); Albumin/Globulin Ratio 1.59 Ratio (1.60-3.17); Alkaline Phosphatase 116 U/L (41-126); BUN/Creat Ratio 39.44 Ratio (12.00-20.00); Blood Urea Nitrogen 35.5 mg/dL (9.0-27.0); Calcium 9.4 mg/dL (8.7-10.3); Carbon Dioxide 23.6 mmol/L (21.6-31.8); Chloride 104 mmol/L (96-109); Ferritin 58.1 ng/mL (10.0-291.0); Globulin 2.7 g/dL (1.6-3.3); Glucose 92 mg/dL (70-110); Iron 63 UG/DL (50-170); Phosphorus 3.3 mg/dL (2.4-5.1); Sodium 141 mmol/L (135-145); Total Bilirubin <0.2 mg/dL (0.3-1.2); Total Iron Binding Capacity 424 UG/DL (228-460); Uric Acid 4.5 mg/dL (2.9-7.7)
[2024-09-17 13:21] LABS: DNA Double-Stranded Negative (Negative)
[2024-09-17 14:13] LABS: Free Lambda Lt Chain Qnt, Seru 1.62 mg/dL (0.57-2.63)
[2024-09-18 11:22] LABS: C-ANCA <1:20 Titer (<1:20)
== END | disposition home or self-care (01) ==
LOC: LABWHC1 06:56
PROVIDERS: ATTEND Internal Medicine
DX: N18.1 Chronic kidney disease, stage 1 (principal)
CPT/HCPCS: 36415; 80053; 80074; 82306; 82728; 83516; 83540; 83550; 83735; 83883; 83970; 84100; 84550; 85027; 86038; 86160; 86162; 86225; 86255; 86334

== ENCOUNTER → 2024-09-19 | Outpatient (CLI) | payer MEDICARE ==
[2024-09-19 16:59] LABS: Bacteria,Urine None Seen (None Seen)
[2024-09-19 17:10] LABS: Appearance,Urine Clear (Clear); Bilirubin,Urine Negative (Negative); Blood,Urine Negative (Negative); Color,Urine Yellow (Yellow); Ketones,Urine Negative (Negative); Nitrite,Urine Negative (Negative); PH, Urine 5.5; Specific Gravity,Urine 1.034 (1.001-1.030)
[2024-09-19 21:37] LABS: Total Volume 24 Hour,Urine 2650 mL
[2024-09-19 21:47] LABS: Total Protein 24 Hour,Urine <159.0 mg/24Hr (0.0-165.0)
== END | disposition home or self-care (01) ==
LOC: LABPRL 07:09
PROVIDERS: ATTEND Internal Medicine
DX: N18.1 Chronic kidney disease, stage 1 (principal)
CPT/HCPCS: 81001; 81050; 84156; 84166